=== PATIENT | female | born 1945 | race Caucasian/White ===

== ENCOUNTER → 2017-03-27 14:45 | Outpatient (CLI) | payer MEDICARE, OTHER, SELFPAY ==
--- NOTE | 2017-03-27 14:47 | CT_ITS ---
STUDY: CT CHEST WITH CONTRAST REASON FOR EXAM: Female, 71 years old. Follow-up lung nodule. RADIATION DOSAGE (If Supplied By Facility): CTDIvol = ( 14.44 ) mGy, DLP = ( 638.06 ) mGycm TECHNIQUE: Transaxial imaging was performed following intravenous administration of 100 ml of Isovue 300 contrast material. Multiplanar coronal and sagittal images were reformatted. Individualized dose optimization techniques were used for this CT. COMPARISON: CT of the chest, May 11, 2016. FINDINGS: There is a 3.5 x 3 x 6 cm irregular nodular density in the left lung apex best seen on image 11 of series 4. There is no other evidence of mass or nodule. There is no demonstrated pleural abnormality. Normal heart and pericardium. There are calcifications of the coronary arteries. Normal mediastinum. Normal hilar regions. Normal enhanced pulmonary arteries. There is atherosclerotic calcification of the aortic arch with tortuosity and elongation of the aortic arch and descending thoracic aorta. There are multi-level degenerative changes of the thoracic spine. There is no demonstrated abnormality of the visualized upper abdomen. CT/Chest WITH Contrast IMPRESSION: Stable nodular density in the left lung apex. A repeat examination one year is recommended to confirm stability. Electronically Signed: Trey Storm DO at 16:07 EST Tel [phone], Service support ,
== END ==
PROVIDERS: Family Provider Family Medicine Geriatric Medicine; PCP Family Medicine Geriatric Medicine; Visit Provider Family Medicine Geriatric Medicine
DX: R91.1 Solitary pulmonary nodule (principal)
CPT/HCPCS: 71260; Q9967

== ENCOUNTER → 2017-04-01 11:38 | Outpatient (CLI) | payer MEDICARE, OTHER, SELFPAY ==
[2017-04-01 14:13] LABS: Thyroid Stim Hormone (TSH) 0.95 uIU/mL (0.358-3.74)
== END ==
PROVIDERS: Family Provider Family Medicine Geriatric Medicine; PCP Family Medicine Geriatric Medicine; Visit Provider Family Medicine Geriatric Medicine
DX: E03.9 Hypothyroidism, unspecified (principal)
CPT/HCPCS: 36415; 84443

== ENCOUNTER → 2017-05-01 11:38 | Outpatient (CLI) | payer MEDICARE, OTHER, SELFPAY ==
[2017-05-01 13:03] LABS: Absolute Lymphocyte Count 2.44 X10^3/ul (0.83-4.51); Absolute Neutrophil Count 7.3 X10^3/uL (2.0-7.7); Basophil# 0.03 X10^3/uL; Basophil% 0.3 % (0-1); Eosinophil# 0.08 X10^3/uL; Eosinophils% 0.8 % (0-5); Hematocrit 39.5 % (37-47); Hemoglobin 12.8 g/dl (12.0-15.0); Lymphocyte # 2.44 X10^3/ul (4.0); Lymphocyte % 23.5 % (19-41); Mean Corp Hgb Conc 32.4 g/gl (32-36); Mean Corpuscular Hgb 29.1 pg (27.0-32.0); Mean Corpuscular Volume 89.8 fL (81-99); Mean Platelet Vol. 10.2 fl (6.2-12.0); Monocyte# 0.56 X10^3/uL; Monocyte% 5.4 % (0-10); Neutrophil # 7.27 X10^3/uL (2.7-7.7); Neutrophil % 69.9 % (47-70); Platelet Count 225 K/mm3 (150-450); RBC Distribution Width CV 14.7 % (11.6-14.6); RBC Distribution Width SD 47.4 fl (35.1-43.9); White Blood Count 10.4 K/mm3 (4.4-11.0)
[2017-05-01 13:12] LABS: POSITIVE COUNT NO; POSITIVE DIFFERENTIAL NO; POSITIVE MORPHOLOGY NO
[2017-05-01 13:36] LABS: AST(SGOT) 14 U/L (15-37); Alanine Aminotransfer ALT/SGPT 31 U/L (13-56); Albumin, Serum 3.3 g/dL (3.2-5.0); Alkaline Phosphatase 82 U/L (45-117); Anion Gap 6 (5-15); BUN 13 mg/dL (7-18); BUN/Creat Ratio 15.3 RATIO (10-20); Calcium,Total 8.3 mg/dL (8.5-10.1); Chloride 108 mmol/L (98-107); Creatinine, Serum 0.85 mg/dL (0.55-1.02); EST Glomerular Filtration Rate 71 mL/min (>60); Est Glom Filt Rate - Afr Amer 85 mL/min (>60); Globulin 3.4 g/dL (2.2-4.2); Glucose 142 mg/dL (74-106); Potassium 4.3 mmol/L (3.5-5.1); Protein, Total 6.7 g/dL (6.4-8.2); Sodium Level 140 mmol/L (136-145); T3 Uptake 36 % (30-39); Thyroid Stim Hormone (TSH) 0.77 uIU/mL (0.358-3.74)
[2017-05-02 09:45] LABS: Vitamin D,25 Hydroxy 18.4 ng/mL (29.95-100.01)
[2017-05-02 11:19] LABS: Hep C Antibodies <0.1 s/co ratio (0.0-0.9)
== END ==
PROVIDERS: Family Provider Family Medicine Geriatric Medicine; PCP Family Medicine Geriatric Medicine; Visit Provider Family Medicine Geriatric Medicine
DX: E55.9 Vitamin D deficiency, unspecified (principal); E78.4 Other hyperlipidemia; Z13.89 Encounter for screening for other disorder; E03.9 Hypothyroidism, unspecified
CPT/HCPCS: 36415; 80053; 82306; 84439; 84443; 84479; 85025; 86803

== ENCOUNTER → 2017-05-28 13:54 | Outpatient (CLI) | payer MEDICARE, OTHER, SELFPAY ==
--- NOTE | 2017-05-28 13:57 | BI_ITS ---
MAMMOGRAPHY - BILATERAL SCREENING REASON FOR EXAM: Female, 71 years old. Routine annual screening examination. PERTINENT HISTORY: Non-contributory. TECHNIQUE: Digital bilateral breast stewart (3D mammographic acquisition) in the CC and MLO projections. 2-D mediolateral oblique (MLO) and craniocaudad (CC) views of both breasts were obtained. CAD: Full Field Digital Mammography with Computer Added Detection was performed. COMPARISON: Comparison is made with prior study dated April 20, 2015 and April 01, 2013. FINDINGS: Breast Composition: The breasts are almost entirely fatty. There are no dominant masses or suspicious calcifications. No other significant abnormalities are identified. There has been no significant change since the prior study. BI/SCREENING MAMM (CAD), BILAT IMPRESSION: Stable bilateral screening mammogram. Yearly follow-up mammogram recommended. (A) ASSESSMENT CATEGORY: BIRADS Category 1: Negative. A letter regarding these results will be sent to the patient by the facility within 30 days. Approximately 10% of breast cancers are not detected by mammography. A normal mammogram should not delay biopsy of a clinically suspicious abnormality. [id number] Electronically Signed: Arthur Taveras MD at 9:12 EDT Tel [phone], Service support ,
[2017-05-28 18:12] LABS: Absolute Lymphocyte Count 2.18 X10^3/ul (0.83-4.51); Absolute Neutrophil Count 7.8 X10^3/uL (2.0-7.7); Basophil# 0.02 X10^3/uL; Basophil% 0.2 % (0-1); Eosinophil# 0.01 X10^3/uL; Eosinophils% 0.1 % (0-5); Hematocrit 43.4 % (37-47); Hemoglobin 13.9 g/dl (12.0-15.0); Lymphocyte # 2.18 X10^3/ul (4.0); Lymphocyte % 20.2 % (19-41); Mean Corpuscular Volume 90.4 fL (81-99); Mean Platelet Vol. 10.9 fl (6.2-12.0); Monocyte# 0.74 X10^3/uL; Monocyte% 6.9 % (0-10); Neutrophil # 7.79 X10^3/uL (2.7-7.7); Neutrophil % 72.2 % (47-70); POSITIVE COUNT NO; POSITIVE DIFFERENTIAL NO; POSITIVE MORPHOLOGY NO; Platelet Count 267 K/mm3 (150-450); RBC Distribution Width CV 14.8 % (11.6-14.6); RBC Distribution Width SD 48.7 fl (35.1-43.9); White Blood Count 10.8 K/mm3 (4.4-11.0)
[2017-05-28 18:20] LABS: ALB/GLOB Ratio 0.9 RATIO (0.9-2.4); AST(SGOT) 27 U/L (15-37); Alanine Aminotransfer ALT/SGPT 35 U/L (13-56); Albumin, Serum 3.6 g/dL (3.2-5.0); Alkaline Phosphatase 81 U/L (45-117); Anion Gap 10 (5-15); BUN 15 mg/dL (7-18); BUN/Creat Ratio 16.2 RATIO (10-20); Calcium,Total 8.8 mg/dL (8.5-10.1); Chloride 107 mmol/L (98-107); Creatinine, Serum 0.93 mg/dL (0.55-1.02); EST Glomerular Filtration Rate 64 mL/min (>60); Est Glom Filt Rate - Afr Amer 77 mL/min (>60); Globulin 3.8 g/dL (2.2-4.2); Glucose 91 mg/dL (74-106); Potassium 4.6 mmol/L (3.5-5.1); Protein, Total 7.4 g/dL (6.4-8.2); Sodium Level 140 mmol/L (136-145)
== END ==
PROVIDERS: Family Provider Family Medicine Geriatric Medicine; PCP Family Medicine Geriatric Medicine; Visit Provider Internal Medicine Rheumatology
DX: M06.4 Inflammatory polyarthropathy (principal); Z79.899 Other long term (current) drug therapy; M79.7 Fibromyalgia; M18.11 Unilateral primary osteoarthritis of first carpometacarpal joint, right hand; M15.9 Polyosteoarthritis, unspecified; M35.00 Sjogren syndrome, unspecified; M47.892 Other spondylosis, cervical region; E89.0 Postprocedural hypothyroidism; F32.89 Other specified depressive episodes; Z12.31 Encounter for screening mammogram for malignant neoplasm of breast
CPT/HCPCS: 36415; 77063; 77067; 80053; 85025

== ENCOUNTER → 2017-08-18 12:29 | Outpatient (CLI) | payer MEDICARE, OTHER, SELFPAY ==
[2017-08-18 14:54] LABS: Absolute Lymphocyte Count 3.01 X10^3/ul (0.83-4.51); Absolute Neutrophil Count 5.5 X10^3/uL (2.0-7.7); Basophil# 0.03 X10^3/uL; Basophil% 0.3 % (0-1); Eosinophil# 0.15 X10^3/uL; Eosinophils% 1.6 % (0-5); Hematocrit 41.8 % (37-47); Hemoglobin 13.5 g/dl (12.0-15.0); Lymphocyte # 3.01 X10^3/ul (4.0); Mean Corp Hgb Conc 32.3 g/gl (32-36); Mean Corpuscular Hgb 29.6 pg (27.0-32.0); Mean Corpuscular Volume 91.7 fL (81-99); Mean Platelet Vol. 9.9 fl (6.2-12.0); Monocyte# 0.73 X10^3/uL; Monocyte% 7.7 % (0-10); Neutrophil # 5.48 X10^3/uL (2.7-7.7); Neutrophil % 58.2 % (47-70); POSITIVE COUNT NO; POSITIVE DIFFERENTIAL NO; POSITIVE MORPHOLOGY NO; Platelet Count 274 K/mm3 (150-450); RBC Distribution Width CV 14.9 % (11.6-14.6); RBC Distribution Width SD 48.9 fl (35.1-43.9); Red Blood Count 4.56 M/mm3 (4.2-5.4); White Blood Count 9.4 K/mm3 (4.4-11.0)
[2017-08-18 15:04] LABS: ALB/GLOB Ratio 1.1 RATIO (0.9-2.4); AST(SGOT) 16 U/L (15-37); Alanine Aminotransfer ALT/SGPT 30 U/L (13-56); Albumin, Serum 3.5 g/dL (3.2-5.0); Alkaline Phosphatase 64 U/L (45-117); Anion Gap 6 (5-15); BUN 16 mg/dL (7-18); Calcium,Total 8.7 mg/dL (8.5-10.1); Chloride 109 mmol/L (98-107); Creatinine, Serum 0.84 mg/dL (0.55-1.02); EST Glomerular Filtration Rate 71 mL/min (>60); Est Glom Filt Rate - Afr Amer 86 mL/min (>60); Globulin 3.3 g/dL (2.2-4.2); Glucose 83 mg/dL (74-106); Potassium 4.2 mmol/L (3.5-5.1); Protein, Total 6.8 g/dL (6.4-8.2); Sodium Level 142 mmol/L (136-145)
== END ==
PROVIDERS: Family Provider Family Medicine Geriatric Medicine; PCP Family Medicine Geriatric Medicine; Visit Provider Internal Medicine Rheumatology
DX: M06.4 Inflammatory polyarthropathy (principal); Z79.899 Other long term (current) drug therapy; M79.7 Fibromyalgia; M18.11 Unilateral primary osteoarthritis of first carpometacarpal joint, right hand; M15.9 Polyosteoarthritis, unspecified; M35.00 Sjogren syndrome, unspecified; M47.892 Other spondylosis, cervical region; E89.0 Postprocedural hypothyroidism; F32.89 Other specified depressive episodes
CPT/HCPCS: 36415; 80053; 85025

== ENCOUNTER → 2017-10-30 14:45 | Outpatient (CLI) | payer MEDICARE, OTHER, SELFPAY ==
[2017-10-30 17:20] LABS: Absolute Lymphocyte Count 1.13 X10^3/ul (0.83-4.51); Absolute Neutrophil Count 7.6 X10^3/uL (2.0-7.7); Basophil# 0.02 X10^3/uL; Basophil% 0.2 % (0-1); Eosinophil# 0.01 X10^3/uL; Eosinophils% 0.1 % (0-5); Hematocrit 39.6 % (37-47); Hemoglobin 13.1 g/dl (12.0-15.0); Lymphocyte # 1.13 X10^3/ul (4.0); Lymphocyte % 12.6 % (19-41); Mean Corp Hgb Conc 33.1 g/gl (32-36); Mean Corpuscular Hgb 30.8 pg (27.0-32.0); Mean Platelet Vol. 10.7 fl (6.2-12.0); Monocyte# 0.24 X10^3/uL; Monocyte% 2.7 % (0-10); Neutrophil # 7.55 X10^3/uL (2.7-7.7); Neutrophil % 84.3 % (47-70); Platelet Count 242 K/mm3 (150-450); RBC Distribution Width CV 14.8 % (11.6-14.6); Red Blood Count 4.26 M/mm3 (4.2-5.4)
[2017-10-30 17:29] LABS: POSITIVE COUNT NO; POSITIVE DIFFERENTIAL NO; POSITIVE MORPHOLOGY NO
[2017-10-30 17:38] LABS: ALB/GLOB Ratio 0.9 RATIO (0.9-2.4); AST(SGOT) 26 U/L (15-37); Alanine Aminotransfer ALT/SGPT 37 U/L (13-56); Albumin, Serum 3.3 g/dL (3.2-5.0); Alkaline Phosphatase 66 U/L (45-117); Anion Gap 12 (5-15); BUN 15 mg/dL (7-18); BUN/Creat Ratio 13.8 RATIO (10-20); Calcium,Total 8.4 mg/dL (8.5-10.1); Chloride 108 mmol/L (98-107); Creatinine, Serum 1.09 mg/dL (0.55-1.02); EST Glomerular Filtration Rate 53 mL/min (>60); Est Glom Filt Rate - Afr Amer 64 mL/min (>60); Globulin 3.5 g/dL (2.2-4.2); Glucose 175 mg/dL (74-106); Potassium 4.4 mmol/L (3.5-5.1); Protein, Total 6.8 g/dL (6.4-8.2); Sodium Level 140 mmol/L (136-145); Thyroid Stim Hormone (TSH) 0.22 uIU/mL (0.358-3.74)
[2017-10-31 11:55] LABS: Vitamin D,25 Hydroxy 25.9 ng/mL (29.95-100.01)
== END ==
PROVIDERS: Family Provider Family Medicine Geriatric Medicine; PCP Family Medicine Geriatric Medicine; Visit Provider Family Medicine Geriatric Medicine
DX: E55.9 Vitamin D deficiency, unspecified (principal); R53.83 Other fatigue
CPT/HCPCS: 36415; 80053; 82306; 84443; 85025

== ENCOUNTER → 2017-11-11 14:58 | Outpatient (CLI) | payer MEDICARE, OTHER, SELFPAY ==
[2017-11-11 18:53] LABS: Absolute Lymphocyte Count 2.73 X10^3/ul (0.83-4.51); Absolute Neutrophil Count 5.2 X10^3/uL (2.0-7.7); Basophil# 0.04 X10^3/uL; Basophil% 0.4 % (0-1); Eosinophil# 0.13 X10^3/uL; Eosinophils% 1.5 % (0-5); Hematocrit 39.2 % (37-47); Hemoglobin 13.1 g/dl (12.0-15.0); Lymphocyte # 2.73 X10^3/ul (4.0); Lymphocyte % 30.5 % (19-41); Mean Corp Hgb Conc 33.4 g/gl (32-36); Mean Corpuscular Hgb 30.9 pg (27.0-32.0); Mean Corpuscular Volume 92.5 fL (81-99); Monocyte# 0.86 X10^3/uL; Monocyte% 9.6 % (0-10); Neutrophil # 5.16 X10^3/uL (2.7-7.7); Neutrophil % 57.7 % (47-70); Platelet Count 244 K/mm3 (150-450); RBC Distribution Width CV 14.6 % (11.6-14.6); RBC Distribution Width SD 47.8 fl (35.1-43.9); Red Blood Count 4.24 M/mm3 (4.2-5.4)
[2017-11-11 18:54] LABS: POSITIVE COUNT NO; POSITIVE DIFFERENTIAL NO; POSITIVE MORPHOLOGY NO
[2017-11-11 19:02] LABS: ALB/GLOB Ratio 1.1 RATIO (0.9-2.4); AST(SGOT) 21 U/L (15-37); Alanine Aminotransfer ALT/SGPT 32 U/L (13-56); Albumin, Serum 3.3 g/dL (3.2-5.0); Alkaline Phosphatase 66 U/L (45-117); Anion Gap 7 (5-15); BUN 13 mg/dL (7-18); BUN/Creat Ratio 13.1 RATIO (10-20); Calcium,Total 8.5 mg/dL (8.5-10.1); Chloride 106 mmol/L (98-107); EST Glomerular Filtration Rate 59 mL/min (>60); Est Glom Filt Rate - Afr Amer 71 mL/min (>60); Globulin 3.1 g/dL (2.2-4.2); Glucose 124 mg/dL (74-106); Potassium 3.8 mmol/L (3.5-5.1); Protein, Total 6.4 g/dL (6.4-8.2); Sodium Level 139 mmol/L (136-145)
== END ==
PROVIDERS: Family Provider Family Medicine Geriatric Medicine; PCP Family Medicine Geriatric Medicine; Visit Provider Internal Medicine Rheumatology
DX: M06.4 Inflammatory polyarthropathy (principal); Z79.899 Other long term (current) drug therapy; M79.7 Fibromyalgia; M18.11 Unilateral primary osteoarthritis of first carpometacarpal joint, right hand; M15.9 Polyosteoarthritis, unspecified; M35.00 Sjogren syndrome, unspecified; M47.892 Other spondylosis, cervical region; E89.0 Postprocedural hypothyroidism; F32.89 Other specified depressive episodes
CPT/HCPCS: 36415; 80053; 85025

== ENCOUNTER → 2018-01-27 10:22 | Outpatient (CLI) | payer MEDICARE, OTHER, SELFPAY ==
[2018-01-27 12:15] LABS: Absolute Lymphocyte Count 2.79 X10^3/ul (0.83-4.51); Basophil# 0.04 X10^3/uL; Basophil% 0.3 % (0-1); Eosinophil# 0.07 X10^3/uL; Eosinophils% 0.6 % (0-5); Hematocrit 45.5 % (37-47); Hemoglobin 14.7 g/dl (12.0-15.0); Lymphocyte # 2.79 X10^3/ul (4.0); Lymphocyte % 22.3 % (19-41); Mean Corp Hgb Conc 32.3 g/gl (32-36); Mean Corpuscular Hgb 30.2 pg (27.0-32.0); Mean Corpuscular Volume 93.4 fL (81-99); Mean Platelet Vol. 10.4 fl (6.2-12.0); Monocyte# 0.59 X10^3/uL; Monocyte% 4.7 % (0-10); Neutrophil # 8.97 X10^3/uL (2.7-7.7); Neutrophil % 71.9 % (47-70); Platelet Count 309 K/mm3 (150-450); RBC Distribution Width CV 14.3 % (11.6-14.6); RBC Distribution Width SD 48.1 fl (35.1-43.9); Red Blood Count 4.87 M/mm3 (4.2-5.4); White Blood Count 12.5 K/mm3 (4.4-11.0)
[2018-01-27 12:23] LABS: POSITIVE COUNT NO; POSITIVE DIFFERENTIAL NO; POSITIVE MORPHOLOGY NO
[2018-01-27 12:58] LABS: AST(SGOT) 22 U/L (15-37); Alanine Aminotransfer ALT/SGPT 27 U/L (13-56); Albumin, Serum 3.7 g/dL (3.2-5.0); Alkaline Phosphatase 67 U/L (45-117); Anion Gap 10 (5-15); BUN 15 mg/dL (7-18); Calcium,Total 9.1 mg/dL (8.5-10.1); Chloride 108 mmol/L (98-107); Creatinine, Serum 0.94 mg/dL (0.55-1.02); EST Glomerular Filtration Rate 63 mL/min (>60); Est Glom Filt Rate - Afr Amer 76 mL/min (>60); Globulin 3.6 g/dL (2.2-4.2); Glucose 95 mg/dL (74-106); Potassium 4.2 mmol/L (3.5-5.1); Protein, Total 7.3 g/dL (6.4-8.2); Sodium Level 140 mmol/L (136-145)
== END ==
PROVIDERS: Family Provider Family Medicine Geriatric Medicine; PCP Family Medicine Geriatric Medicine; Referring Provider Internal Medicine Rheumatology; Visit Provider Internal Medicine Rheumatology
DX: M06.4 Inflammatory polyarthropathy (principal); Z79.899 Other long term (current) drug therapy; M79.7 Fibromyalgia; M18.11 Unilateral primary osteoarthritis of first carpometacarpal joint, right hand; M15.9 Polyosteoarthritis, unspecified; M35.00 Sjogren syndrome, unspecified; M47.892 Other spondylosis, cervical region; E89.0 Postprocedural hypothyroidism; F32.89 Other specified depressive episodes
CPT/HCPCS: 36415; 80053; 85025

== ENCOUNTER → 2018-02-25 17:33 | Outpatient (CLI) | payer MEDICARE, OTHER, SELFPAY | PROVIDERS: Family Provider Family Medicine Geriatric Medicine; PCP Family Medicine Geriatric Medicine; Referring Provider Family Medicine Geriatric Medicine; Visit Provider Family Medicine Geriatric Medicine | DX: R50.9 Fever, unspecified (principal) | CPT/HCPCS: 87633 ==

== ENCOUNTER → 2018-03-16 10:39 | Outpatient (CLI) | payer MEDICARE, OTHER, SELFPAY ==
[2018-03-16 11:38] LABS: Absolute Lymphocyte Count 2.64 X10^3/ul (0.83-4.51); Basophil# 0.04 X10^3/uL; Basophil% 0.5 % (0-1); Eosinophils% 1.2 % (0-5); Hematocrit 41.7 % (37-47); Hemoglobin 13.3 g/dl (12.0-15.0); Lymphocyte # 2.64 X10^3/ul (4.0); Lymphocyte % 31.5 % (19-41); Mean Corp Hgb Conc 31.9 g/gl (32-36); Mean Corpuscular Hgb 29.8 pg (27.0-32.0); Mean Corpuscular Volume 93.5 fL (81-99); Mean Platelet Vol. 10.5 fl (6.2-12.0); Monocyte# 0.59 X10^3/uL; Neutrophil # 4.99 X10^3/uL (2.7-7.7); Neutrophil % 59.7 % (47-70); Platelet Count 267 K/mm3 (150-450); RBC Distribution Width CV 14.9 % (11.6-14.6); RBC Distribution Width SD 49.9 fl (35.1-43.9); Red Blood Count 4.46 M/mm3 (4.2-5.4); White Blood Count 8.4 K/mm3 (4.4-11.0)
[2018-03-16 11:40] LABS: POSITIVE COUNT NO; POSITIVE DIFFERENTIAL NO; POSITIVE MORPHOLOGY NO
[2018-03-16 12:06] LABS: AST(SGOT) 16 U/L (15-37); Alanine Aminotransfer ALT/SGPT 27 U/L (13-56); Albumin, Serum 3.4 g/dL (3.2-5.0); Alkaline Phosphatase 70 U/L (45-117); Anion Gap 6 (5-15); BUN 12 mg/dL (7-18); BUN/Creat Ratio 15.1 RATIO (10-20); Calcium,Total 9.1 mg/dL (8.5-10.1); Chloride 109 mmol/L (98-107); EST Glomerular Filtration Rate 76 mL/min (>60); Est Glom Filt Rate - Afr Amer 92 mL/min (>60); Globulin 3.5 g/dL (2.2-4.2); Glucose 112 mg/dL (74-106); Potassium 3.9 mmol/L (3.5-5.1); Protein, Total 6.9 g/dL (6.4-8.2); Sodium Level 142 mmol/L (136-145)
--- OUTSIDE RECORDS SUMMARY | 2018-05-18 20:56 | XMS RPT_ITS ---
:1945 Author Organization OHIP Support Name Relationship Address Phone TALISHA HOOKS Unavailable [address] + [place] [address] R Unavailable Unavailable Unavailable NEVA, TALISHA Unavailable [address] + [place] [address] R Unavailable Unavailable Unavailable NEVA, TALISHA Unavailable [address] + [place] [address] R Unavailable Unavailable Unavailable NEVA, TALISHA Unavailable [address] + [place] [address] R Unavailable Unavailable Unavailable NEVA, TALISHA Unavailable [address] + [place] [address] R Unavailable Unavailable Unavailable NEVA, CHOCO Unavailable Unavailable + NEVA, CHOCO Unavailable Unavailable + NEVA TALISHA Unavailable [address] + [place] [address] R Unavailable Unavailable Unavailable NEVA, TALISHA Unavailable [address] + [place] [address] R Unavailable Unavailable Unavailable NEVA, TALISHA Unavailable [address] + [place] [address] R Unavailable Unavailable Unavailable NEVA, TALISHA Unavailable [address] + [place] [address] R Unavailable Unavailable Unavailable NEVA, TALISHA Unavailable [address] + [place] [address] R Unavailable Unavailable Unavailable Care Team Providers Name Role Phone Dustin, Justo Chi Attending Unavailable Dustin, Justo Chi Primary Care Unavailable Dustin, Justo Chi Referring Unavailable Dustin, Justo Chi Attending Unavailable Dustin, Justo Chi Referring Unavailable Dustin, Justo Chi Primary Care Unavailable Bettye Dumont Attending Unavailable Bettye Dumont Referring Unavailable Dustin, Justo Chi Primary Care Unavailable Dustin, Justo Chi Attending Unavailable Dustin, Justo Chi Referring Unavailable Dustin, Justo Chi Primary Care Unavailable Dustin, Justo Chi Attending Unavailable Dustin, Justo Chi Primary Care Unavailable Dustin, Justo Chi Referring Unavailable Dustin, Justo Chi Primary Care Unavailable Vellanki, Bettye Attending Unavailable Dustin, Justo Chi Consulting Unavailable Vellanki, Bettye Attending Unavailable Vellanki, Bettye Referring Unavailable Dustin, Justo Chi Primary Care Unavailable Dustin, Justo Chi Attending Unavailable Dustin, Justo Chi Primary Care Unavailable Vellanki, Bettye Attending Unavailable Vellanki, Bettye Referring Unavailable Dustin, Justo Chi Primary Care Unavailable Vellanki, Bettye Attending Unavailable Vellanki, Bettye Referring Unavailable Dustin, Justo Chi Primary Care Unavailable BRENT CLEMENTE Referring Unavailable Brandon Meza Admitting Unavailable Brandon Meza Attending Unavailable Dustin, Justo Chi Primary Care Unavailable BRENT CLEMENTE Referring Unavailable DUSTIN, JUSTO-CHI Primary Care Unavailable PROBLEMS PROBLEMS DATE TYPE CONDITION / CODE ATTENDING STATUS SOURCE 03/16/2018 Unknown 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, 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 / [facility] M06.4(ICD-10) Hospital Repository 03/16/2018 Unknown Z79.899 - Other long Vellanki, Active [place] term (current) drug [facility] therapy / Hospital Z79.899(ICD-10) Repository 03/16/2018 Unknown M79.7 - Fibromyalgia Vellanki, Active [place] / M79.7(ICD-10) [facility] Hospital Repository 03/16/2018 Unknown M35.00 - Sicca Vellanki, Active [facility] syndrome, [facility] unspecified / Hospital M35.00(ICD-10) Repository 03/16/2018 Unknown E89.0 - Vellanki, Active [place] Postprocedural [facility] hypothyroidism / Hospital E89.0(ICD-10) Repository 02/25/2018 Unknown R50.9 - Fever, Dustin, Justo Chi Active [facility] unspecified / Community R50.9(ICD-10) Hospital Repository 01/27/2018 Unknown M18.11 - Unilateral Vellanki, Active [facility] primary [facility] osteoarthritis of Hospital first Repository carpometacarpal joint, right hand / M18.11(ICD-10) 01/27/2018 Unknown M15.9 - Vellanki, Active [place] Polyosteoarthritis, [facility] unspecified / Hospital M15.9(ICD-10) Repository 01/27/2018 Unknown M47.892 - Other Vellanki, Active [facility] spondylosis, [facility] cervical region / Hospital M47.892(ICD-10) Repository 01/27/2018 Unknown F32.89 - Other Vellanki, Active [facility] specified depressive [facility] episodes / Hospital F32.89(ICD-10) Repository 05/28/2017 Unknown Z12.31 - Encounter Vellanjason, Active [place] for screening [facility] mammogram for Hospital malignant neoplasm Repository of breast / Z12.31(ICD-10) 05/21/2017 Active Radiculopathy, NA Active [place] cervical region / Clinic Other M54.12(ICD-10) [place] Repository 05/21/2017 Admitting Unknown / NA Active [facility] diagnosis [facility] Repository 05/01/2017 Unknown E55.9 - Vitamin D Dustin, Justo Chi Active [place] deficiency, Community unspecified / Hospital E55.9(ICD-10) Repository 05/01/2017 Unknown E78.4 - Other Dustin, Justo Chi Active [facility] hyperlipidemia / [facility] E78.4(ICD-10) Hospital Repository 05/01/2017 Unknown Z13.89 - Encounter Dustin, Justo Chi Active [facility] for screening for Community other disorder / Hospital Z13.89(ICD-10) Repository 04/01/2017 Unknown E03.9 - Dustin, Justo Chi Active [place] Hypothyroidism, Community unspecified / Hospital E03.9(ICD-10) Repository 03/27/2017 Unknown R91.1 - Solitary Dustin, Justo Chi Active [place] pulmonary nodule / Community R91.1(ICD-10) Hospital Repository PROCEDURES PROCEDURES No Procedure Records FoundRESULTS RESULTS CBC W/DIFF, AUTOMATED Collected: 03/16/2018 Status: F Source: [facility] 10:45 AM [facility] REPOSITORY TYPE CODE TESTS RESULT OUT OF RANGE REFERENCE UNITS LAB L100.1000 4.4-11.0 K/mm3 Normal WBC 8.4 LAB L100.1200 4.2-5.4 M/mm3 Normal RBC 4.46 LAB L100.1300 12.0-15.0 g/dl Normal HGB 13.3 LAB L100.1400 37-47 % Normal HCT 41.7 LAB L100.1500 81-99 fL Normal MCV 93.5 LAB L100.1600 27.0-32.0 pg Normal MCH 29.8 LAB L100.1700 32-36 g/gl Low MCHC 31.9 LAB L100.1810 11.6-14.6 % High RDW CV 14.9 LAB L100.1820 35.1-43.9 fl High RDW SD 49.9 LAB L100.1900 150-450 K/mm3 Normal PLT 267 LAB L100.2000 6.2-12.0 fl Normal MPV 10.5 LAB L100.2100 47-70 % Normal NEUT% 59.7 LAB L100.2200 19-41 % Normal LY% 31.5 LAB L100.2300 0-10 % Normal MONO% 7.0 LAB L100.2400 0-5 % Normal EO% 1.2 LAB L100.2500 0-1 % Normal BASO% 0.5 LAB L100.2550 0.0-0.9 % Normal IM GRAN % 0.100 Result Comment: IG% - Immature Granulocytes (promyelocytes, myelocytes and metamyelocytes) > 1% indicates that a LEFT SHIFT is Present. LAB L100.2620 2.0-7.7 X10 3/uL Normal Absolute Neut 5.0 LAB L100.2720 0.83-4.51 X10 3/ul Normal Absolute Lymph 2.64 Performed By: #### L100.0100 #### [facility] [address] [place], [place], [address] COMPREHENSIVE METABOLIC Collected: 03/16/2018 Status: F Source: [facility] 10:45 AM [facility] REPOSITORY TYPE CODE TESTS RESULT OUT OF RANGE REFERENCE UNITS LAB L501.0100 74-106 mg/dL High GLU 112 Result Comment: Fasting Glucose result from 100 to 125 mg/dL suggests IMPAIRED HOMEOSTASIS per A.D.A. criteria. Please note revised GLUCOSE reference range effective 2017. LAB L501.1000 7-18 mg/dL Normal BUN 12 LAB L501.1100 0.55-1.02 mg/dL Normal CREAT,SERUM 0.80 Result Comment: The validity of the calculated GFR AND GFRAA in patients over 70 years has not been determined. Clinical correlation is essential. LAB L501.1110 >60 mL/min Normal EST GFR 76 Result Comment: Non- GFR Calc LAB L501.1115 >60 mL/min Normal EST GFR - AA 92 Result Comment: GFR Calc LAB L501.1300 10-20 RATIO Normal BUN/CRE 15.1 LAB L501.1500 6.4-8.2 g/dL T Normal PROT 6.9 LAB L501.1800 3.2-5.0 g/dL Normal ALB 3.4 LAB L501.1950 2.2-4.2 g/dL Normal GLOB 3.5 LAB L501.2000 0.9-2.4 RATIO Normal A/G 1.0 LAB L501.2200 8.5-10.1 mg/dL CA Normal 9.1 LAB L501.4100 15-37 U/L Normal AST 16 LAB L501.4305 45-117 U/L Normal ALK P 70 LAB L501.4405 13-56 U/L Normal ALT 27 LAB L501.4600 0.20-1.00 mg/dL T Normal BILI 0.30 LAB L501.5300 136-145 mmol/L NA Normal 142 LAB L501.5600 3.5-5.1 mmol/L K Normal 3.9 LAB L501.5900 98-107 mmol/L High CL 109 LAB L501.6100 21.0-32.0 mmol/L Normal CO2 27.0 LAB L501.6200 5-15 Normal GAP 6 Performed By: #### L500.4050 #### [facility] [address] [facility] [place], [address] Observed: 02/25/2018 Status: F Source: [place] RESPIRATORY PANEL 5:44 PM [facility] MOLECULAR REPOSITORY RP PANEL ADENOVIRUS Not Detected HUMAN METAPHNEUMO Not Detected INFLUENZA A Not Detected INFLUENZA A (SUBTYPE H1) Not Detected INFLUENZA A (SUBTYPE H3) Not Detected INFLUENZA B Not Detected PARAINFLUENZA 1 Not Detected PARAINFLUENZA 2 Not Detected PARAINFLUENZA 3 Not Detected PARAINFLUENZA 4 Not Detected RHINOVIRUS Not Detected RSV A Not Detected RSV B Not Detected NAAT METHOD Testing was performed using nucleic acid amplification Performed By: #### M100.638 #### [facility] [address] [place], [place], [address] CBC W/DIFF, AUTOMATED Collected: 01/27/2018 Status: F Source: [place] 10:30 AM [facility] REPOSITORY TYPE CODE TESTS RESULT OUT OF RANGE REFERENCE UNITS LAB L100.1000 4.4-11.0 K/mm3 High WBC 12.5 LAB L100.1200 4.2-5.4 M/mm3 Normal RBC 4.87 LAB L100.1300 12.0-15.0 g/dl Normal HGB 14.7 LAB L100.1400 37-47 % Normal HCT 45.5 LAB L100.1500 81-99 fL Normal MCV 93.4 LAB L100.1600 27.0-32.0 pg Normal MCH 30.2 LAB L100.1700 32-36 g/gl Normal MCHC 32.3 LAB L100.1810 11.6-14.6 % Normal RDW CV 14.3 LAB L100.1820 35.1-43.9 fl High RDW SD 48.1 LAB L100.1900 150-450 K/mm3 Normal PLT 309 LAB L100.2000 6.2-12.0 fl Normal MPV 10.4 LAB L100.2100 47-70 % High NEUT% 71.9 LAB L100.2200 19-41 % Normal LY% 22.3 LAB L100.2300 0-10 % Normal MONO% 4.7 LAB L100.2400 0-5 % Normal EO% 0.6 LAB L100.2500 0-1 % Normal BASO% 0.3 LAB L100.2550 0.0-0.9 % Normal IM GRAN % 0.200 Result Comment: IG% - Immature Granulocytes (promyelocytes, myelocytes and metamyelocytes) > 1% indicates that a LEFT SHIFT is Present. LAB L100.2620 2.0-7.7 X10 3/uL High Absolute Neut 9.0 LAB L100.2720 0.83-4.51 X10 3/ul Normal Absolute Lymph 2.79 Performed By: #### L100.0100 #### [facility] [address] [place], [address] COMPREHENSIVE METABOLIC Collected: 01/27/2018 Status: F [facility] AM [facility] REPOSITORY TYPE CODE TESTS RESULT OUT OF RANGE REFERENCE UNITS LAB L501.0100 74-106 mg/dL Normal GLU 95 Result Comment: Please note revised GLUCOSE reference range effective 2017. LAB L501.1000 7-18 mg/dL Normal BUN 15 LAB L501.1100 0.55-1.02 mg/dL Normal CREAT,SERUM 0.94 Result Comment: The validity of the calculated GFR AND GFRAA in patients over 70 years has not been determined. Clinical correlation is essential. LAB L501.1110 >60 mL/min Normal EST GFR 63 Result Comment: Non- GFR Calc LAB L501.1115 >60 mL/min Normal EST GFR - AA 76 Result Comment: GFR Calc LAB L501.1300 10-20 RATIO Normal BUN/CRE 16.0 LAB L501.1500 6.4-8.2 g/dL T Normal PROT 7.3 LAB L501.1800 3.2-5.0 g/dL Normal ALB 3.7 LAB L501.1950 2.2-4.2 g/dL Normal GLOB 3.6 LAB L501.2000 0.9-2.4 RATIO Normal A/G 1.0 LAB L501.2200 8.5-10.1 mg/dL CA Normal 9.1 LAB L501.4100 15-37 U/L Normal AST 22 LAB L501.4305 45-117 U/L Normal ALK P 67 LAB L501.4405 13-56 U/L Normal ALT 27 LAB L501.4600 0.20-1.00 mg/dL T Normal BILI 0.50 LAB L501.5300 136-145 mmol/L NA Normal 140 LAB L501.5600 3.5-5.1 mmol/L K Normal 4.2 LAB L501.5900 98-107 mmol/L High CL 108 LAB L501.6100 21.0-32.0 mmol/L Normal CO2 22.0 LAB L501.6200 5-15 Normal GAP 10 Performed By: #### L500.4050 #### [facility] [address] [place], [address] CBC W/DIFF, AUTOMATED Collected: 11/11/2017 Status: F Source: [facility] 3:04 PM [facility] REPOSITORY TYPE CODE TESTS RESULT OUT OF RANGE REFERENCE UNITS LAB L100.1000 4.4-11.0 K/mm3 Normal WBC 9.0 LAB L100.1200 4.2-5.4 M/mm3 Normal RBC 4.24 LAB L100.1300 12.0-15.0 g/dl Normal HGB 13.1 LAB L100.1400 37-47 % Normal HCT 39.2 LAB L100.1500 81-99 fL Normal MCV 92.5 LAB L100.1600 27.0-32.0 pg Normal MCH 30.9 LAB L100.1700 32-36 g/gl Normal MCHC 33.4 LAB L100.1810 11.6-14.6 % Normal RDW CV 14.6 LAB L100.1820 35.1-43.9 fl High RDW SD 47.8 LAB L100.1900 150-450 K/mm3 Normal PLT 244 LAB L100.2000 6.2-12.0 fl Normal MPV 11.0 LAB L100.2100 47-70 % Normal NEUT% 57.7 LAB L100.2200 19-41 % Normal LY% 30.5 LAB L100.2300 0-10 % Normal MONO% 9.6 LAB L100.2400 0-5 % Normal EO% 1.5 LAB L100.2500 0-1 % Normal BASO% 0.4 LAB L100.2550 0.0-0.9 % Normal IM GRAN % 0.300 Result Comment: IG% - Immature Granulocytes (promyelocytes, myelocytes and metamyelocytes) > 1% indicates that a LEFT SHIFT is Present. LAB L100.2620 2.0-7.7 X10 3/uL Normal Absolute Neut 5.2 LAB L100.2720 0.83-4.51 X10 3/ul Normal Absolute Lymph 2.73 Performed By: #### L100.0100 #### [facility] [address] [place], [place], [id number] COMPREHENSIVE METABOLIC Collected: 11/11/2017 Status: F Source: [facility] 3:04 PM [facility] REPOSITORY TYPE CODE TESTS RESULT OUT OF RANGE REFERENCE UNITS LAB L501.0100 74-106 mg/dL High GLU 124 Result Comment: Fasting Glucose result from 100 to 125 mg/dL suggests IMPAIRED HOMEOSTASIS per A.D.A. criteria. Please note revised GLUCOSE reference range effective 2017. LAB L501.1000 7-18 mg/dL Normal BUN 13 LAB L501.1100 0.55-1.02 mg/dL Normal CREAT,SERUM 1.00 Result Comment: The validity of the calculated GFR AND GFRAA in patients over 70 years has not been determined. Clinical correlation is essential. LAB L501.1110 >60 mL/min Low EST GFR 59 Result Comment: Non- GFR Calc LAB L501.1115 >60 mL/min Normal EST GFR - AA 71 Result Comment: GFR Calc LAB L501.1300 10-20 RATIO Normal BUN/CRE 13.1 LAB L501.1500 6.4-8.2 g/dL T Normal PROT 6.4 LAB L501.1800 3.2-5.0 g/dL Normal ALB 3.3 LAB L501.1950 2.2-4.2 g/dL Normal GLOB 3.1 LAB L501.2000 0.9-2.4 RATIO Normal A/G 1.1 LAB L501.2200 8.5-10.1 mg/dL CA Normal 8.5 LAB L501.4100 15-37 U/L Normal AST 21 LAB L501.4305 45-117 U/L Normal ALK P 66 LAB L501.4405 13-56 U/L Normal ALT 32 LAB L501.4600 0.20-1.00 mg/dL T Normal BILI 0.30 LAB L501.5300 136-145 mmol/L NA Normal 139 LAB L501.5600 3.5-5.1 mmol/L K Normal 3.8 LAB L501.5900 98-107 mmol/L CL Normal 106 LAB L501.6100 21.0-32.0 mmol/L Normal CO2 26.0 LAB L501.6200 5-15 Normal GAP 7 Performed By: #### L500.4050 #### [facility] [place], [place], [id number] CBC W/DIFF, AUTOMATED Collected: 10/30/2017 Status: F Source: [facility] 2:49 PM [facility] REPOSITORY TYPE CODE TESTS RESULT OUT OF RANGE REFERENCE UNITS LAB L100.1000 4.4-11.0 K/mm3 Normal WBC 9.0 LAB L100.1200 4.2-5.4 M/mm3 Normal RBC 4.26 LAB L100.1300 12.0-15.0 g/dl Normal HGB 13.1 LAB L100.1400 37-47 % Normal HCT 39.6 LAB L100.1500 81-99 fL Normal MCV 93.0 LAB L100.1600 27.0-32.0 pg Normal MCH 30.8 LAB L100.1700 32-36 g/gl Normal MCHC 33.1 LAB L100.1810 11.6-14.6 % High RDW CV 14.8 LAB L100.1820 35.1-43.9 fl High RDW SD 48.0 LAB L100.1900 150-450 K/mm3 Normal PLT 242 LAB L100.2000 6.2-12.0 fl Normal MPV 10.7 LAB L100.2100 47-70 % High NEUT% 84.3 LAB L100.2200 19-41 % Low LY% 12.6 LAB L100.2300 0-10 % Normal MONO% 2.7 LAB L100.2400 0-5 % Normal EO% 0.1 LAB L100.2500 0-1 % Normal BASO% 0.2 LAB L100.2550 0.0-0.9 % Normal IM GRAN % 0.100 Result Comment: IG% - Immature Granulocytes (promyelocytes, myelocytes and metamyelocytes) > 1% indicates that a LEFT SHIFT is Present. LAB L100.2620 2.0-7.7 X10 3/uL Normal Absolute Neut 7.6 LAB L100.2720 0.83-4.51 X10 3/ul Normal Absolute Lymph 1.13 Performed By: #### L100.0100 #### [facility] [address] [place], [place], [address] COMPREHENSIVE METABOLIC Collected: 10/30/2017 Status: F Source: [facility] 2:49 PM [facility] REPOSITORY TYPE CODE TESTS RESULT OUT OF RANGE REFERENCE UNITS LAB L501.0100 74-106 mg/dL High GLU 175 Result Comment: Fasting Glucose result greater than or equal to 126 mg/dL suggests DIABETES MELLITUS per A.D.A. criteria. Please note revised GLUCOSE reference range effective 2017. LAB L501.1000 7-18 mg/dL Normal BUN 15 LAB L501.1100 0.55-1.02 mg/dL High CREAT,SERUM 1.09 Result Comment: The validity of the calculated GFR AND GFRAA in patients over 70 years has not been determined. Clinical correlation is essential. LAB L501.1110 >60 mL/min Low EST GFR 53 Result Comment: Non- GFR Calc LAB L501.1115 >60 mL/min Normal EST GFR - AA 64 Result Comment: GFR Calc LAB L501.1300 10-20 RATIO Normal BUN/CRE 13.8 LAB L501.1500 6.4-8.2 g/dL T Normal PROT 6.8 LAB L501.1800 3.2-5.0 g/dL Normal ALB 3.3 LAB L501.1950 2.2-4.2 g/dL Normal GLOB 3.5 LAB L501.2000 0.9-2.4 RATIO Normal A/G 0.9 LAB L501.2200 8.5-10.1 mg/dL Low CA 8.4 LAB L501.4100 15-37 U/L Normal AST 26 LAB L501.4305 45-117 U/L Normal ALK P 66 LAB L501.4405 13-56 U/L Normal ALT 37 LAB L501.4600 0.20-1.00 mg/dL T Normal BILI 0.30 LAB L501.5300 136-145 mmol/L NA Normal 140 LAB L501.5600 3.5-5.1 mmol/L K Normal 4.4 LAB L501.5900 98-107 mmol/L High CL 108 LAB L501.6100 21.0-32.0 mmol/L Low CO2 20.0 LAB L501.6200 5-15 Normal GAP 12 Performed By: #### L500.4050, L501.9520 #### [facility] [address] [facility] [place], [address] THYROID STIM HORMONE Collected: 10/30/2017 Status: F Source: [facility] ([facility]) 2:49 PM [facility] REPOSITORY TYPE CODE TESTS RESULT OUT OF RANGE REFERENCE UNITS LAB L501.9520 0.358-3.74 uIU/mL Low TSH 0.22 Performed By: #### L500.4050, L501.9520 #### [facility] [address] [place], [address] VITAMIN D,25 HYDROXY Collected: 10/30/2017 Status: F Source: [facility] 2:49 PM [facility] REPOSITORY TYPE CODE TESTS RESULT OUT OF REFERENCE UNITS RANGE LAB L506.1000 29.95-100.01 ng/mL Low Vitamin D 25.9 25-OH Result Comment: Vitamin D 25(OH) Status Range Deficiency <20 ng/mL (50nmol/L) Insuffciency 20 - 30 ng/mL (50 - 75 nmol/L) Sufficiency 30 - 100 ng/mL (75 - 250 nmol/L) Toxicity >100 ng/mL (>250 nmol/L) Performed By: #### L506.1000 #### [facility] [place], [address] XR SPINE LUMBAR W/ Observed: 09/26/2017 Status: F Source: [facility] 12:36 PM [facility] REPOSITORY Exam Date/Time: 09/26/2017 12:43 EDT Reason for Exam: low back pain Report STUDY: XR Spine Lumbar w/ Obliques; 09/26/2017 12:43 pm INDICATION: low back pain. COMPARISON: None. ACCESSION NUMBER(S): [id number] ORDERING CLINICIAN: Brandon Meza FINDINGS: Five views of the lumbar spine including AP, lateral, lateral cone-down and bilateral oblique views were obtained. There is no acute fracture identified. There is mild anterolisthesis of L4 on L5 and mild retrolisthesis of L2 on L3. Rvak-po-ruvidjnm disc space narrowing and small marginal osteophytes are present at the L2-3 and L5-S1 levels. Minimal discogenic degenerative changes are seen elsewhere in the lumbar spine. Moderate facet degenerative changes are seen in the mid to lower lumbar spine. There is no evidence of pars interarticularis defect. IMPRESSION: 1. No evidence of acute fracture. 2. Degenerative changes throughout the lumbar spine, as described above. FINAL REPORT Dictated: 09/27/2017 2:48 pm Mele Silver MD Signed (Electronic Signature): 09/27/2017 2:48 pm Signed by: Mele Silver MD Technologist: HLL CBC W/DIFF, AUTOMATED Collected: 08/18/2017 Status: F Source: [facility] 12:36 PM [facility] REPOSITORY TYPE CODE TESTS RESULT OUT OF RANGE REFERENCE UNITS LAB L100.1000 4.4-11.0 K/mm3 Normal WBC 9.4 LAB L100.1200 4.2-5.4 M/mm3 Normal RBC 4.56 LAB L100.1300 12.0-15.0 g/dl Normal HGB 13.5 LAB L100.1400 37-47 % Normal HCT 41.8 LAB L100.1500 81-99 fL Normal MCV 91.7 LAB L100.1600 27.0-32.0 pg Normal MCH 29.6 LAB L100.1700 32-36 g/gl Normal MCHC 32.3 LAB L100.1810 11.6-14.6 % High RDW CV 14.9 LAB L100.1820 35.1-43.9 fl High RDW SD 48.9 LAB L100.1900 150-450 K/mm3 Normal PLT 274 LAB L100.2000 6.2-12.0 fl Normal MPV 9.9 LAB L100.2100 47-70 % Normal NEUT% 58.2 LAB L100.2200 19-41 % Normal LY% 32.0 LAB L100.2300 0-10 % Normal MONO% 7.7 LAB L100.2400 0-5 % Normal EO% 1.6 LAB L100.2500 0-1 % Normal BASO% 0.3 LAB L100.2550 0.0-0.9 % Normal IM GRAN % 0.200 Result Comment: IG% - Immature Granulocytes (promyelocytes, myelocytes and metamyelocytes) > 1% indicates that a LEFT SHIFT is Present. LAB L100.2620 2.0-7.7 X10 3/uL Normal Absolute Neut 5.5 LAB L100.2720 0.83-4.51 X10 3/ul Normal Absolute Lymph 3.01 Performed By: #### L100.0100 #### [facility] [address] [place], [address] COMPREHENSIVE METABOLIC Collected: 08/18/2017 Status: F [facility]:36 PM [facility] REPOSITORY TYPE CODE TESTS RESULT OUT OF RANGE REFERENCE UNITS LAB L501.0100 74-106 mg/dL Normal GLU 83 Result Comment: Please note revised GLUCOSE reference range effective 2017. LAB L501.1000 7-18 mg/dL Normal BUN 16 LAB L501.1100 0.55-1.02 mg/dL Normal CREAT,SERUM 0.84 Result Comment: The validity of the calculated GFR AND GFRAA in patients over 70 years has not been determined. Clinical correlation is essential. LAB L501.1110 >60 mL/min Normal EST GFR 71 Result Comment: Non- GFR Calc LAB L501.1115 >60 mL/min Normal EST GFR - AA 86 Result Comment: GFR Calc LAB L501.1300 10-20 RATIO Normal BUN/CRE 19.0 LAB L501.1500 6.4-8.2 g/dL T Normal PROT 6.8 LAB L501.1800 3.2-5.0 g/dL Normal ALB 3.5 LAB L501.1950 2.2-4.2 g/dL Normal GLOB 3.3 LAB L501.2000 0.9-2.4 RATIO Normal A/G 1.1 LAB L501.2200 8.5-10.1 mg/dL CA Normal 8.7 LAB L501.4100 15-37 U/L Normal AST 16 LAB L501.4305 45-117 U/L Normal ALK P 64 LAB L501.4405 13-56 U/L Normal ALT 30 LAB L501.4600 0.20-1.00 mg/dL T Normal BILI 0.30 LAB L501.5300 136-145 mmol/L NA Normal 142 LAB L501.5600 3.5-5.1 mmol/L K Normal 4.2 LAB L501.5900 98-107 mmol/L High CL 109 LAB L501.6100 21.0-32.0 mmol/L Normal CO2 27.0 LAB L501.6200 5-15 Normal GAP 6 Performed By: #### L500.4050 #### [facility] [address] [place], [place], [address] CBC W/DIFF, AUTOMATED Collected: 05/28/2017 Status: F Source: [place] 3:05 PM [facility] REPOSITORY TYPE CODE TESTS RESULT OUT OF RANGE REFERENCE UNITS LAB L100.1000 4.4-11.0 K/mm3 Normal WBC 10.8 LAB L100.1200 4.2-5.4 M/mm3 Normal RBC 4.80 LAB L100.1300 12.0-15.0 g/dl Normal HGB 13.9 LAB L100.1400 37-47 % Normal HCT 43.4 LAB L100.1500 81-99 fL Normal MCV 90.4 LAB L100.1600 27.0-32.0 pg Normal MCH 29.0 LAB L100.1700 32-36 g/gl Normal MCHC 32.0 LAB L100.1810 11.6-14.6 % High RDW CV 14.8 LAB L100.1820 35.1-43.9 fl High RDW SD 48.7 LAB L100.1900 150-450 K/mm3 Normal PLT 267 LAB L100.2000 6.2-12.0 fl Normal MPV 10.9 LAB L100.2100 47-70 % High NEUT% 72.2 LAB L100.2200 19-41 % Normal LY% 20.2 LAB L100.2300 0-10 % Normal MONO% 6.9 LAB L100.2400 0-5 % Normal EO% 0.1 LAB L100.2500 0-1 % Normal BASO% 0.2 LAB L100.2550 0.0-0.9 % Normal IM GRAN % 0.400 Result Comment: IG% - Immature Granulocytes (promyelocytes, myelocytes and metamyelocytes) > 1% indicates that a LEFT SHIFT is Present. LAB L100.2620 2.0-7.7 X10 3/uL High Absolute Neut 7.8 LAB L100.2720 0.83-4.51 X10 3/ul Normal Absolute Lymph 2.18 Performed By: #### L100.0100 #### [facility] [address] [place], [place], [id number] COMPREHENSIVE METABOLIC Collected: 05/28/2017 Status: F Source: [facility] 3:05 PM [facility] REPOSITORY TYPE CODE TESTS RESULT OUT OF RANGE REFERENCE UNITS LAB L501.0100 74-106 mg/dL Normal GLU 91 Result Comment: Please note revised GLUCOSE reference range effective 2017. LAB L501.1000 7-18 mg/dL Normal BUN 15 LAB L501.1100 0.55-1.02 mg/dL Normal CREAT,SERUM 0.93 Result Comment: The validity of the calculated GFR AND GFRAA in patients over 70 years has not been determined. Clinical correlation is essential. LAB L501.1110 >60 mL/min Normal EST GFR 64 Result Comment: Non- GFR Calc LAB L501.1115 >60 mL/min Normal EST GFR - AA 77 Result Comment: GFR Calc LAB L501.1300 10-20 RATIO Normal BUN/CRE 16.2 LAB L501.1500 6.4-8.2 g/dL T Normal PROT 7.4 LAB L501.1800 3.2-5.0 g/dL Normal ALB 3.6 LAB L501.1950 2.2-4.2 g/dL Normal GLOB 3.8 LAB L501.2000 0.9-2.4 RATIO Normal A/G 0.9 LAB L501.2200 8.5-10.1 mg/dL CA Normal 8.8 LAB L501.4100 15-37 U/L Normal AST 27 Result Comment: Moderate Hemolysis, Result may be falsely increased. LAB L501.4305 45-117 U/L Normal ALK P 81 LAB L501.4405 13-56 U/L Normal ALT 35 Result Comment: Please note revised ALT reference range effective 2017. LAB L501.4600 0.20-1.00 mg/dL Normal T BILI 0.30 LAB L501.5300 136-145 mmol/L Normal NA 140 LAB L501.5600 3.5-5.1 mmol/L Normal K 4.6 Result Comment: Moderate Hemolysis, Result may be falsely increased. LAB L501.5900 98-107 mmol/L Normal CL 107 LAB L501.6100 21.0-32.0 mmol/L Normal CO2 23.0 LAB L501.6200 5-15 Normal GAP 10 Performed By: #### L500.4050 #### [facility] [address] [facility] [place], [address] SCREENING MAMM (CAD), Observed: 05/28/2017 Status: F Source: [place] BILAT 1:57 PM [facility] REPOSITORY [facility] Imaging Services [address] [facility] [place] [address] SCREENING MAMM (CAD), BILAT MR#: [id number] Acct: [id number] Name: RADHA FROST Rep #: [id number] : 1945 F 71 From: Arthur Taveras MD PCP: Justo Craig MD, Chi Status: REG CLI Study: SCREENING MAMM (CAD), BILAT Date of Exam: 05/28/17 Exam# [id number] Ordering Dr: Justo Craig MD MAMMOGRAPHY - BILATERAL SCREENING REASON FOR EXAM: Female, 71 years old. Routine annual screening examination. PERTINENT HISTORY: Non-contributory. TECHNIQUE: Digital bilateral breast stewart (3D mammographic acquisition) in the CC and MLO projections. 2-D mediolateral oblique (MLO) and craniocaudad (CC) views of both breasts were obtained. CAD: Full Field Digital Mammography with Computer Added Detection was performed. COMPARISON: Comparison is made with prior study dated April 20, 2015 and April 01, 2013. FINDINGS: Breast Composition: The breasts are almost entirely fatty. There are no dominant masses or suspicious calcifications. No other significant abnormalities are identified. There has been no significant change since the prior study. BI/SCREENING MAMM (CAD), BILAT IMPRESSION: Stable bilateral screening mammogram. Yearly follow-up mammogram recommended. (A) ASSESSMENT CATEGORY: BIRADS Category 1: Negative. A letter regarding these results will be sent to the patient by the facility within 30 days. Approximately 10% of breast cancers are not detected by mammography. A normal mammogram should not delay biopsy of a clinically suspicious abnormality. [id number] Electronically Signed: Arthur Taveras MD at 9:12 EDT Tel [phone], Service support , CC: Justo Craig MD [place] Artist: Signed DX CERVICAL SPINE 2 Observed: 05/21/2017 Status: F Source: [facility] OR 3 VIEWS 2:26 PM HEALTH SYSTEM REPOSITORY Performed at [facility] APPROVED BY: Jewel Wild MD EXAM TITLE: CERVICAL SPINE DATE: 05/21/2017 14:22 COMPARISON: None. CLINICAL INDICATION/HISTORY: Neck pain TECHNIQUE: AP and lateral views of the cervical spine FINDINGS: There is an anterior fusion plate and screws at C5, C6 and C7 with interbody fusion devices. The hardware appears intact. No spondylolisthesis. No disc space narrowing or widening. No lyt ic or blastic osseous lesions. Soft tissues are unremarkable. IMPRESSION: Anterior fusion of C5-C7. Otherwise unremarkable cervical spine. CBC W/DIFF, AUTOMATED Collected: 05/01/2017 Status: F Source: [place] 11:41 AM [facility] REPOSITORY TYPE CODE TESTS RESULT OUT OF RANGE REFERENCE UNITS LAB L100.1000 4.4-11.0 K/mm3 Normal WBC 10.4 LAB L100.1200 4.2-5.4 M/mm3 Normal RBC 4.40 LAB L100.1300 12.0-15.0 g/dl Normal HGB 12.8 LAB L100.1400 37-47 % Normal HCT 39.5 LAB L100.1500 81-99 fL Normal MCV 89.8 LAB L100.1600 27.0-32.0 pg Normal MCH 29.1 LAB L100.1700 32-36 g/gl Normal MCHC 32.4 LAB L100.1810 11.6-14.6 % High RDW CV 14.7 LAB L100.1820 35.1-43.9 fl High RDW SD 47.4 LAB L100.1900 150-450 K/mm3 Normal PLT 225 LAB L100.2000 6.2-12.0 fl Normal MPV 10.2 LAB L100.2100 47-70 % Normal NEUT% 69.9 LAB L100.2200 19-41 % Normal LY% 23.5 LAB L100.2300 0-10 % Normal MONO% 5.4 LAB L100.2400 0-5 % Normal EO% 0.8 LAB L100.2500 0-1 % Normal BASO% 0.3 LAB L100.2550 0.0-0.9 % Normal IM GRAN % 0.100 Result Comment: IG% - Immature Granulocytes (promyelocytes, myelocytes and metamyelocytes) > 1% indicates that a LEFT SHIFT is Present. LAB L100.2620 2.0-7.7 X10 3/uL Normal Absolute Neut 7.3 LAB L100.2720 0.83-4.51 X10 3/ul Normal Absolute Lymph 2.44 Performed By: #### L100.0100 #### [facility] [place], [address] COMPREHENSIVE METABOLIC Collected: 05/01/2017 Status: F Source: [place] [facility] 11:41 AM [facility] REPOSITORY TYPE CODE TESTS RESULT OUT OF RANGE REFERENCE UNITS LAB L501.0100 74-106 mg/dL High GLU 142 Result Comment: Fasting Glucose result greater than or equal to 126 mg/dL suggests DIABETES MELLITUS per A.D.A. criteria. Please note revised GLUCOSE reference range effective 2017. LAB L501.1000 7-18 mg/dL Normal BUN 13 LAB L501.1100 0.55-1.02 mg/dL Normal CREAT,SERUM 0.85 Result Comment: The validity of the calculated GFR AND GFRAA in patients over 70 years has not been determined. Clinical correlation is essential. LAB L501.1110 >60 mL/min Normal EST GFR 71 Result Comment: Non- GFR Calc LAB L501.1115 >60 mL/min Normal EST GFR - AA 85 Result Comment: GFR Calc LAB L501.1300 10-20 RATIO Normal BUN/CRE 15.3 LAB L501.1500 6.4-8.2 g/dL T Normal PROT 6.7 LAB L501.1800 3.2-5.0 g/dL Normal ALB 3.3 LAB L501.1950 2.2-4.2 g/dL Normal GLOB 3.4 LAB L501.2000 0.9-2.4 RATIO Normal A/G 1.0 LAB L501.2200 8.5-10.1 mg/dL Low CA 8.3 LAB L501.4100 15-37 U/L Low AST 14 LAB L501.4305 45-117 U/L Normal ALK P 82 LAB L501.4405 13-56 U/L Normal ALT 31 Result Comment: Please note revised ALT reference range effective 2017. LAB L501.4600 0.20-1.00 mg/dL Normal T BILI 0.30 LAB L501.5300 136-145 mmol/L Normal NA 140 LAB L501.5600 3.5-5.1 mmol/L Normal K 4.3 LAB L501.5900 98-107 mmol/L High CL 108 LAB L501.6100 21.0-32.0 mmol/L Normal CO2 26.0 LAB L501.6200 5-15 Normal GAP 6 Performed By: #### L500.4050, L501.9195, L501.9520, L506.0400 #### [facility] [address] [place], [place], [address] T3 UPTAKE Collected: 05/01/2017 Status: F Source: [place] 11:41 AM [facility] REPOSITORY TYPE CODE TESTS RESULT OUT OF RANGE REFERENCE UNITS LAB L501.9210 30-39 % 36 Normal T3 UPTAKE LAB L501.9410 1.4-4.5 Test Normal T7 (FTI) not performed Performed By: #### L500.4050, L501.9195, L501.9520, L506.0400 #### [facility] [address] [place], [place], [id number] THYROID STIM HORMONE Collected: 05/01/2017 Status: F Source: [place] (TSH) 11:41 AM [facility] REPOSITORY TYPE CODE TESTS RESULT OUT OF RANGE REFERENCE UNITS LAB L501.9520 0.358-3.74 uIU/mL Normal TSH 0.77 Performed By: #### L500.4050, L501.9195, L501.9520, L506.0400 #### [facility] [address] [place], [address] T4 FREE DIRECT Collected: 05/01/2017 Status: F Source: [place] 11:41 AM [facility] REPOSITORY TYPE CODE TESTS RESULT OUT OF RANGE REFERENCE UNITS LAB L506.0400 0.76-1.46 ng/dL Normal T4 FREE 1.30 DIRECT Performed By: #### L500.4050, L501.9195, L501.9520, L506.0400 #### [facility] [address] [place], [address] VITAMIN D,25 HYDROXY Collected: 05/01/2017 Status: F Source: [place] 11:41 AM [facility] REPOSITORY TYPE CODE TESTS RESULT OUT OF REFERENCE UNITS RANGE LAB L506.1000 29.95-100.01 ng/mL Low Vitamin D 18.4 25-OH Result Comment: Vitamin D 25(OH) Status Range Deficiency <20 ng/mL (50nmol/L) Insuffciency 20 - 30 ng/mL (50 - 75 nmol/L) Sufficiency 30 - 100 ng/mL (75 - 250 nmol/L) Toxicity >100 ng/mL (>250 nmol/L) Performed By: #### L506.1000 #### [facility] [address] [place], [address] HEPATITIS C ANTIBODIES Collected: 05/01/2017 Status: F Source: [place] 11:41 AM [facility] REPOSITORY TYPE CODE TESTS RESULT OUT OF RANGE REFERENCE UNITS LAB L3100.0650 0.0-0.9 s/co ratio Normal HEP C AB <0.1 Result Comment: Negative: < 0.8 Indeterminate: 0.8 - 0.9 Positive: > 0.9 The CDC recommends that a positive HCV antibody result be followed up with a HCV Nucleic Acid Amplification test (715821). Performed at: [facility] [id number] [employer]: Harvey Ta PhD, Phone: [phone] Performed By: #### L3100.0625 #### [facility] (refer to report for specific site) refer to report for address and phone number THYROID STIM HORMONE Collected: 04/01/2017 Status: F Source: [place] (TSH) 11:50 AM [facility] REPOSITORY TYPE CODE TESTS RESULT OUT OF RANGE REFERENCE UNITS LAB L501.9520 0.358-3.74 uIU/mL Normal TSH 0.95 Performed By: #### L501.9520 #### [facility] [address] [place], [place], [address] CHEST WITH CONTRAST Observed: 03/27/2017 Status: F Source: [place] 2:47 PM [facility] REPOSITORY [facility] Imaging Services [address] [place] [address] Chest WITH Contrast MR#: [id number] Acct: [id number] Name: RADHA FROST Rep #: [id number] : 1945 F 71 From: Trey Storm DO PCP: Justo Craig MD, Chi Status: REG CLI Study: Chest WITH Contrast Date of Exam: 03/27/17 Exam# [id number] Ordering Dr: Justo Craig MD STUDY: CT CHEST WITH CONTRAST REASON FOR EXAM: Female, 71 years old. Follow-up lung nodule. RADIATION DOSAGE (If Supplied By Facility): CTDIvol = ( 14.44 ) mGy, DLP = ( 638.06 ) mGycm TECHNIQUE: Transaxial imaging was performed following intravenous administration of 100 ml of Isovue 300 contrast material. Multiplanar coronal and sagittal images were reformatted. Individualized dose optimization techniques were used for this CT. COMPARISON: CT of the chest, May 11, 2016. FINDINGS: There is a 3.5 x 3 x 6 cm irregular nodular density in the left lung apex best seen on image 11 of series 4. There is no other evidence of mass or nodule. There is no demonstrated pleural abnormality. Normal heart and pericardium. There are calcifications of the coronary arteries. Normal mediastinum. Normal hilar regions. Normal enhanced pulmonary arteries. There is atherosclerotic calcification of the aortic arch with tortuosity and elongation of the aortic arch and descending thoracic aorta. There are multi-level degenerative changes of the thoracic spine. There is no demonstrated abnormality of the visualized upper abdomen. CT/Chest WITH Contrast IMPRESSION: Stable nodular density in the left lung apex. A repeat examination one year is recommended to confirm stability. Electronically Signed: Trey Storm DO at 16:07 EST Tel [phone], Service support , CC: Justo Craig MD [place] Artist: Signed ALLERGIES ALLERGIES DATE TYPE / CODE NAME / CODE REACTION SEVERITY SOURCE Drug NO KNOWN [facility] Class/19223 ALLERGIES Other [place] 1003(SNOMED Repository CT) [id number] NO KNOWN [place] [address]([facility] CT) Repository ENCOUNTERS ENCOUNTERS ADMIT/DISCHARGE ACCOUNT NUMBER ADMITTING ENCOUNTER LOCATION SOURCE CLASS 03/16/2018 [id number] [facility] ding:LAB Repository 02/25/2018 [id number] [facility] ding:PSN Repository 01/27/2018 [id number] [facility] ding:MTLAB Repository 11/11/2017 [id number] [facility] ding:MTLAB Repository 10/30/2017 [id number] [facility] ding:POLAB3 Repository 09/26/2017/09/27/[id number] ding:[facility] Repository 09/26/[id number] Repository 08/18/2017 [id number] [facility] ding:MTLAB Repository 05/28/2017 [id number] [facility] ding:OPBI Repository 05/21/2017 [id number] Ambulatory [facility] Other [place] Repository 05/21/2017 [id number] Ambulatory [facility] MEDICAL Repository CENTERBuildi ng:AKXRC 05/01/2017 [id number] [facility] ding:POLAB3 Repository 04/01/2017 [id number] [facility] ding:LAB.FUT Repository URE 03/27/2017 [id number] [facility] ding:CT Repository PAYERS PAYERS ENCOUNTER GUARANTOR PAYER SUBSCRIBER SOURCE 03/16/2018 TALISHA GARCIA S [facility] [id number] CR Insurance:MEDICARE BAIRDOB: [address] A BPolicy Number: [id number] Hospital , [place] [address]Psm: [id number] Repository Date:2018-03-16 () 03/16/2018 Secondary RADHA S PRAKASH [place] Insurance:HUMANA BAIRDOB: [facility] [id number] Hospital Number: Repository [id number] Date:8582-53-18GN [address] [address]IU: 03/16/2018 Tertiary NOT GIVENUNK [place] Insurance:SELF PAY [facility] Number: Effective Repository Date:2018-03-16 02/25/2018 TALISHA Yeung Primary RADHA S PRAKASH [place] [id number] CR Insurance:MEDICARE BAIRDOB: [address] A BPolicy Number: [id number] Hospital , [place] [address]Apc: [id number] Repository Date:2018-02-25 () 02/25/2018 Secondary RADHA S PRAKASH [place] Insurance:HUMANA BAIRDOB: [facility] [id number] Hospital Number: Repository [id number] Date:5067-98-90SO [address] [address]YM: 02/25/2018 Tertiary NOT GIVENUNK [place] Insurance:SELF PAY [facility] Number: Effective Repository Date:2018-02-25 01/27/2018 Talisha Yeung Primary RADHA S PRAKASH [place] [id number] CR Insurance:MEDICARE BAIRDOB: [address] A BPolicy Number: [id number] Hospital , [place] [id number]: [id number] Repository Date:2018-01-27 () 01/27/2018 Secondary RADHA S PRAKASH [place] Insurance:HUMANA BAIRDOB: [facility] [id number] Hospital Number: Repository [id number] Date:7813-42-29WC [address] [address]WP: 01/27/2018 Tertiary NOT GIVENUNK [place] Insurance:SELF PAY [facility] Number: Effective Repository Date:2018-01-27 11/11/2017 Talisha Yeung Primary RADHA S PRAKASH [place] [id number] CR Insurance:MEDICARE BAIRDOB: Community [address] [place] [address] PART A BPolicy Number: [id number], [place] [address]Nwc: [id number] Repository Date:2017-11-11 () 11/11/2017 Secondary RADHA S PRAKASH [place] Insurance:HUMANA BAIRDOB: Community COMMERCIALPoly [id number] Hospital Number: Repository [id number] Date:1512-31-21XN [address] [place] [address]EK: 11/11/2017 Tertiary NOT GIVENUNK [place] Insurance:SELF PAY [facility] Number: Effective Repository Date:2017-11-11 10/30/2017 Talisha Yeung Primary RADHA S PRAKASH [place] [id number] CR Insurance:MEDICARE BAIRDOB: [address] PART A BPolicy Number: [id number], [place] [address]Dkg: [id number] Repository Date:2017-10-30 (HP) 10/30/2017 Secondary RADHA S PRAKASH [place] Insurance:HUMANA BAIRDOB: [facility] [id number] Hospital Number: Repository [id number] Date:7847-14-60TV [address] [place] [address]WS: 10/30/2017 Tertiary NOT GIVENUNK [place] Insurance:SELF PAY [facility] Number: Effective Repository Date:2017-10-30 09/26/2017 RADHA S Primary RADHA S [place] PRAKASH-BAIRDOB: Insurance:MedicarePoli PRAKASH-BAIRDOB: [facility] cy Number: Effective [id number] [facility] [address] Date:2017-09-26 - [facility] [address] Repository [address] [place] [address] [id number] Name:CD:[id number] [facility] [address]Svo: [id number], [place] [address]Pfr: [phone]: ([phone] (GB) [phone] (HP) (WP) 09/26/2017 Secondary RADHA S Caodaism Insurance:HUMANAPolicy PRAKASH-BAIRDOB: [facility] Health Number: Effective [id number] System Date:2017-09-26 - [facility] Repository [id number] [place] [address], Name:CD:[id number] [facility] [address]DC[place], [place] [address]Pig: [phone]: [phone] (HP) (WP) 09/26/2017 RADHA BAIRDOB: Primary RADHA BAIRDOB: [place] Insurance:MedicarePoli [id number] [place] [address] cy Number: [facility] Repository [address] [place] [address] [id number] [place] [address] Date:Plan Name:[place] [id number]: [id number]: (HP) (HP) 09/26/2017 Secondary RADHA BAIRDOB: [place] Insurance:[facility] [id number] Hospitals HumanaPolicy Number: [facility] Repository [id number] [address] [place] [address], Date:Plan Name:Health [place] [id number]: (HP) 08/18/2017 [place] Yeung Primary RADHA S PRAKASH [place] [id number] Insurance:MEDICARE BAIRDOB: [address] PART A BPolicy Number: [id number], [place] [address]Srg: [id number] Repository Date:2017-08-18 (HP) 08/18/2017 Secondary RADHA S PRAKASH [place] Insurance:HUMANA BAIRDOB: [facility] [id number] Hospital Number: Repository [id number] Date:0669-77-12XB [address] [place] [address]YU: 08/18/2017 Tertiary NOT GIVENUNK [place] Insurance:SELF PAY [facility] Number: Effective Repository Date:2017-08-18 05/28/2017 Talisha Yeung Primary RADHA S PRAKASH [place] [id number] CR Insurance:MEDICARE BAIRDOB: [address] A BPolicy Number: [id number], [place] [address]Pdc: [id number] Repository Date:2017-05-05 (HP) 05/28/2017 Secondary RADHA S PRAKASH [place] Insurance:HUMANA BAIRDOB: [facility] [id number] Hospital Number: Repository [id number] Date:7309-16-45LL [address] [address]KP: 05/28/2017 Tertiary NOT GIVENUNK [place] Insurance:SELF PAY [facility] Number: Effective Repository Date:2017-05-05 05/21/2017 RADHA S Primary RADHA S [facility] BAIRDOB: Insurance:MEDICARE A BAIRDOB: Health System AND BPolicy Number: [id number] [id number] [address] [place] [address] Date: , [place] [address]Qcp: (HP) 05/21/2017 Secondary RADHA S [facility] Insurance:HUMANA BAIRDOB: Health System MEDICARE [id number] Repository SUPPLEMENTPolicy Number: [id number] Date: 05/01/2017 Talisha Yeung Primary RADHA S PRAKASH [place] [id number] CR Insurance:MEDICARE BAIRDOB: [address] PART A BPolicy Number: [id number], [place] [address]Afq: [id number] Repository Date:2017-05-01 (HP) 05/01/2017 Secondary RADHA S PRAKASH [place] Insurance:HUMANA BAIRDOB: [facility] [id number] Hospital Number: Repository [id number] Date:2000-21-50IZ [address] [place] [address]ZF: 05/01/2017 Tertiary NOT GIVENUNK [place] Insurance:SELF PAY [facility] Number: Effective Repository Date:2017-05-01 04/01/2017 [place] Yeung Primary RADHA S PRAKASH [place] [id number] CR Insurance:MEDICARE BAIRDOB: [address] BPolicy Number: [id number], [place] [address]Ylx: [id number] Repository Date:2017-02-27 () 04/01/2017 Secondary RADHA S PRAKASH [place] Insurance:HUMANA BAIRDOB: [facility] [id number] Hospital Number: Repository [id number] Date:8960-74-58FO [address] [place] [address]YR: 04/01/2017 Tertiary NOT GIVENUNK [place] Insurance:SELF PAY [facility] Hospital Number: Effective Repository Date:2017-02-27 03/27/2017 Talisha Yeung Primary RADHA S PRAKASH [place] [id number] CR Insurance:MEDICARE BAIRDOB: [address] BPolicy Number: [id number], [place] [address]Bfu: [id number] Repository Date:2017-03-20 () 03/27/2017 Secondary RADHA S PRAKASH [place] Insurance:HUMANA BAIRDOB: [facility] [id number] Hospital Number: Repository [id number] Date:0330-43-48QH [address] [place] [address]QD: 03/27/2017 Tertiary NOT GIVENUNK [place] Insurance:SELF PAY [facility] Number: Effective Repository Date:2017-03-20
== END ==
PROVIDERS: Family Provider Family Medicine Geriatric Medicine; PCP Family Medicine Geriatric Medicine; Referring Provider Internal Medicine Rheumatology; Visit Provider Internal Medicine Rheumatology
DX: M06.4 Inflammatory polyarthropathy (principal); Z79.899 Other long term (current) drug therapy; M79.7 Fibromyalgia; M18.11 Unilateral primary osteoarthritis of first carpometacarpal joint, right hand; M15.9 Polyosteoarthritis, unspecified; M35.00 Sjogren syndrome, unspecified; M47.892 Other spondylosis, cervical region; E89.0 Postprocedural hypothyroidism; F32.89 Other specified depressive episodes
CPT/HCPCS: 36415; 80053; 85025

== ENCOUNTER → 2018-05-05 11:30 | Outpatient (CLI) | payer MEDICARE, OTHER, SELFPAY ==
[2018-05-05 12:39] LABS: Absolute Lymphocyte Count 1.76 X10^3/ul (0.83-4.51); Basophil# 0.04 X10^3/uL; Basophil% 0.4 % (0-1); Eosinophil# 0.01 X10^3/uL; Eosinophils% 0.1 % (0-5); Hematocrit 41.9 % (37-47); Hemoglobin 13.4 g/dl (12.0-15.0); Lymphocyte # 1.76 X10^3/ul (4.0); Lymphocyte % 17.7 % (19-41); Mean Corpuscular Volume 93.7 fL (81-99); Mean Platelet Vol. 9.9 fl (6.2-12.0); Monocyte# 0.11 X10^3/uL; Monocyte% 1.1 % (0-10); Neutrophil # 7.99 X10^3/uL (2.7-7.7); Neutrophil % 80.4 % (47-70); Platelet Count 292 K/mm3 (150-450); RBC Distribution Width CV 15.7 % (11.6-14.6); RBC Distribution Width SD 52.8 fl (35.1-43.9); Red Blood Count 4.47 M/mm3 (4.2-5.4); White Blood Count 9.9 K/mm3 (4.4-11.0)
[2018-05-05 12:40] LABS: POSITIVE COUNT NO; POSITIVE DIFFERENTIAL NO; POSITIVE MORPHOLOGY NO
[2018-05-05 13:12] LABS: ALB/GLOB Ratio 1.1 RATIO (0.9-2.4); AST(SGOT) 15 U/L (15-37); Alanine Aminotransfer ALT/SGPT 27 U/L (13-56); Albumin, Serum 3.5 g/dL (3.2-5.0); Alkaline Phosphatase 68 U/L (45-117); Anion Gap 12 (5-15); BUN 15 mg/dL (7-18); BUN/Creat Ratio 14.4 RATIO (10-20); Calcium,Total 8.3 mg/dL (8.5-10.1); Chloride 108 mmol/L (98-107); Creatinine, Serum 1.04 mg/dL (0.55-1.02); EST Glomerular Filtration Rate 56 mL/min (>60); Est Glom Filt Rate - Afr Amer 67 mL/min (>60); Globulin 3.3 g/dL (2.2-4.2); Glucose 163 mg/dL (74-106); Potassium 4.1 mmol/L (3.5-5.1); Protein, Total 6.8 g/dL (6.4-8.2); Sodium Level 144 mmol/L (136-145)
== END ==
PROVIDERS: Family Provider Family Medicine Geriatric Medicine; PCP Family Medicine Geriatric Medicine; Referring Provider Internal Medicine Rheumatology; Visit Provider Internal Medicine Rheumatology
DX: M06.4 Inflammatory polyarthropathy (principal); Z79.899 Other long term (current) drug therapy; M79.7 Fibromyalgia; M18.11 Unilateral primary osteoarthritis of first carpometacarpal joint, right hand; M35.00 Sjogren syndrome, unspecified; M47.892 Other spondylosis, cervical region; E89.0 Postprocedural hypothyroidism; F32.89 Other specified depressive episodes
CPT/HCPCS: 36415; 80053; 85025

== ENCOUNTER → 2018-05-11 13:43 | Outpatient (CLI) | payer MEDICARE, OTHER, SELFPAY ==
[2018-05-11 14:50] LABS: Absolute Lymphocyte Count 2.56 X10^3/ul (0.83-4.51); Absolute Neutrophil Count 6.4 X10^3/uL (2.0-7.7); Basophil# 0.05 X10^3/uL; Basophil% 0.5 % (0-1); Eosinophil# 0.13 X10^3/uL; Eosinophils% 1.3 % (0-5); Hematocrit 43.4 % (37-47); Hemoglobin 13.8 g/dl (12.0-15.0); Lymphocyte # 2.56 X10^3/ul (4.0); Lymphocyte % 26.4 % (19-41); Mean Corp Hgb Conc 31.8 g/gl (32-36); Mean Corpuscular Hgb 30.2 pg (27.0-32.0); Mean Platelet Vol. 10.2 fl (6.2-12.0); Monocyte# 0.58 X10^3/uL; Neutrophil # 6.35 X10^3/uL (2.7-7.7); Neutrophil % 65.5 % (47-70); Platelet Count 282 K/mm3 (150-450); RBC Distribution Width CV 16.2 % (11.6-14.6); RBC Distribution Width SD 53.8 fl (35.1-43.9); Red Blood Count 4.57 M/mm3 (4.2-5.4); White Blood Count 9.7 K/mm3 (4.4-11.0)
[2018-05-11 14:56] LABS: POSITIVE COUNT NO; POSITIVE DIFFERENTIAL NO; POSITIVE MORPHOLOGY NO
[2018-05-11 15:07] LABS: Vitamin D,25 Hydroxy 32.5 ng/mL (29.95-100.01)
[2018-05-11 15:10] LABS: ALB/GLOB Ratio 1.1 RATIO (0.9-2.4); AST(SGOT) 15 U/L (15-37); Alanine Aminotransfer ALT/SGPT 28 U/L (13-56); Albumin, Serum 3.5 g/dL (3.2-5.0); Alkaline Phosphatase 64 U/L (45-117); Anion Gap 5 (5-15); BUN 16 mg/dL (7-18); BUN/Creat Ratio 15.8 RATIO (10-20); Calcium,Total 8.6 mg/dL (8.5-10.1); Chloride 108 mmol/L (98-107); Creatinine, Serum 1.01 mg/dL (0.55-1.02); EST Glomerular Filtration Rate 58 mL/min (>60); Est Glom Filt Rate - Afr Amer 70 mL/min (>60); Globulin 3.1 g/dL (2.2-4.2); Glucose 142 mg/dL (74-106); Potassium 4.1 mmol/L (3.5-5.1); Protein, Total 6.6 g/dL (6.4-8.2); Sodium Level 138 mmol/L (136-145); Thyroid Stim Hormone (TSH) 0.61 uIU/mL (0.358-3.74)
== END ==
PROVIDERS: Family Provider Family Medicine Geriatric Medicine; PCP Family Medicine Geriatric Medicine; Visit Provider Family Medicine Geriatric Medicine
DX: E55.9 Vitamin D deficiency, unspecified (principal); R53.83 Other fatigue
CPT/HCPCS: 36415; 80053; 82306; 84443; 85025

== ENCOUNTER → 2018-07-27 | Outpatient (CLI) | payer MEDICARE, OTHER, SELFPAY ==
[2018-07-27 17:26] LABS: Absolute Lymphocyte Count 2.08 X10^3/ul (0.83-4.51); Basophil# 0.02 X10^3/uL; Basophil% 0.3 % (0-1); Eosinophil# 0.14 X10^3/uL; Eosinophils% 1.8 % (0-5); Hematocrit 38.5 % (37-47); Hemoglobin 12.4 g/dl (12.0-15.0); Lymphocyte # 2.08 X10^3/ul (4.0); Lymphocyte % 26.5 % (19-41); Mean Corp Hgb Conc 32.2 g/gl (32-36); Mean Corpuscular Hgb 29.7 pg (27.0-32.0); Mean Corpuscular Volume 92.3 fL (81-99); Mean Platelet Vol. 10.9 fl (6.2-12.0); Monocyte# 0.62 X10^3/uL; Monocyte% 7.9 % (0-10); Neutrophil # 4.99 X10^3/uL (2.7-7.7); Neutrophil % 63.5 % (47-70); Platelet Count 247 K/mm3 (150-450); RBC Distribution Width CV 13.9 % (11.6-14.6); Red Blood Count 4.17 M/mm3 (4.2-5.4); White Blood Count 7.9 K/mm3 (4.4-11.0)
[2018-07-27 17:35] LABS: POSITIVE COUNT NO; POSITIVE DIFFERENTIAL NO; POSITIVE MORPHOLOGY NO
[2018-07-27 17:47] LABS: ALB/GLOB Ratio 0.9 RATIO (0.9-2.4); AST(SGOT) 14 U/L (15-37); Alanine Aminotransfer ALT/SGPT 25 U/L (13-56); Albumin, Serum 3.1 g/dL (3.2-5.0); Alkaline Phosphatase 72 U/L (45-117); Anion Gap 9 (5-15); BUN 8 mg/dL (7-18); BUN/Creat Ratio 9.4 RATIO (10-20); Calcium,Total 8.4 mg/dL (8.5-10.1); Chloride 109 mmol/L (98-107); Creatinine, Serum 0.85 mg/dL (0.55-1.02); EST Glomerular Filtration Rate 70 mL/min (>60); Est Glom Filt Rate - Afr Amer 85 mL/min (>60); Globulin 3.5 g/dL (2.2-4.2); Glucose 112 mg/dL (74-106); Potassium 3.9 mmol/L (3.5-5.1); Protein, Total 6.6 g/dL (6.4-8.2); Sodium Level 145 mmol/L (136-145)
== END | disposition home or self-care (01) ==
LOC: MTLAB 15:37
PROVIDERS: Family Provider Family Medicine Geriatric Medicine; PCP Family Medicine Geriatric Medicine; Referring Provider Internal Medicine Rheumatology; Visit Provider Internal Medicine Rheumatology
DX: M06.4 Inflammatory polyarthropathy (principal); Z79.899 Other long term (current) drug therapy; M79.7 Fibromyalgia; M18.11 Unilateral primary osteoarthritis of first carpometacarpal joint, right hand; M15.9 Polyosteoarthritis, unspecified; M35.00 Sjogren syndrome, unspecified; M47.892 Other spondylosis, cervical region; E89.0 Postprocedural hypothyroidism; F32.89 Other specified depressive episodes
CPT/HCPCS: 36415; 80053; 85025

== ENCOUNTER → 2018-10-30 14:32 | Outpatient (CLI) | payer MEDICARE, OTHER, SELFPAY ==
[2018-10-30 15:30] LABS: Absolute Neutrophil Count 8.6 X10^3/uL (2.0-7.7); Basophil# 0.02 X10^3/uL; Basophil% 0.2 % (0-1); Hematocrit 42.8 % (37-47); Lymphocyte % 13.6 % (19-41); Mean Corp Hgb Conc 32.7 g/dL (32-36); Mean Corpuscular Volume 91.6 fL (81-99); Monocyte# 0.18 X10^3/uL; Monocyte% 1.8 % (0-10); NRBC Flagged by Analyzer 0 % (0-5); Neutrophil # 8.64 X10^3/uL (2.7-7.7); Neutrophil % 84.1 % (47-70); Platelet Count 285 K/mm3 (150-450); RBC Distribution Width CV 14.7 % (11.6-14.6); RBC Distribution Width SD 49.1 fl (35.1-43.9); Red Blood Count 4.67 M/mm3 (4.2-5.4); White Blood Count 10.3 K/mm3 (4.4-11.0)
[2018-10-30 15:59] LABS: AST(SGOT) 19 U/L (15-37); Alanine Aminotransfer ALT/SGPT 28 U/L (13-56); Albumin, Serum 3.5 g/dL (3.2-5.0); Alkaline Phosphatase 69 U/L (45-117); Anion Gap 6 (5-15); BUN 13 mg/dL (7-18); BUN/Creat Ratio 12.7 RATIO (10-20); Calcium,Total 8.7 mg/dL (8.5-10.1); Chloride 107 mmol/L (98-107); Creatinine, Serum 1.02 mg/dL (0.55-1.02); EST Glomerular Filtration Rate 57 mL/min (>60); Est Glom Filt Rate - Afr Amer 69 mL/min (>60); Globulin 3.4 g/dL (2.2-4.2); Glucose 101 mg/dL (74-106); Potassium 4.3 mmol/L (3.5-5.1); Protein, Total 6.9 g/dL (6.4-8.2); Sodium Level 140 mmol/L (136-145)
== END ==
PROVIDERS: Family Provider Family Medicine Geriatric Medicine; PCP Family Medicine Geriatric Medicine; Referring Provider Internal Medicine Rheumatology; Visit Provider Internal Medicine Rheumatology
DX: M06.4 Inflammatory polyarthropathy (principal); Z79.899 Other long term (current) drug therapy; M79.7 Fibromyalgia; M18.11 Unilateral primary osteoarthritis of first carpometacarpal joint, right hand; M35.00 Sjogren syndrome, unspecified; M47.892 Other spondylosis, cervical region; E89.0 Postprocedural hypothyroidism; F32.9 Major depressive disorder, single episode, unspecified
CPT/HCPCS: 36415; 80053; 85025

== ENCOUNTER → 2018-11-10 08:53 | Outpatient (CLI) | payer MEDICARE, OTHER, SELFPAY ==
--- NOTE | 2018-11-10 11:15 | RAD_ITS ---
STUDY: X-RAY - LUMBAR SPINE REASON FOR EXAM: Female, 73 years old. Chronic lower back pain. TECHNIQUE: 3 view(s) of the lumbar spine were obtained. COMPARISON: None FINDINGS: There is a grade 1 anterior spondylolisthesis of L5 on S1. There is no substantial scoliosis. There is a normal alignment of the vertebrae. There is multilevel endplate spondylosis of the lumbar vertebrae. There is multi-level degenerative disc disease with multi-level disc space narrowing. There is atherosclerotic calcification of the abdominal aorta without a demonstrated aneurysm. RAD/Lumbar Spine 2 or 3 Views IMPRESSION: Degenerative changes of the spine, as detailed above. Grade 1 anterior spondylolisthesis of L5 on S1. Atherosclerosis. Electronically Signed: Yoly Goode MD at 20:56 EDT Tel , Service support ,
[2018-11-10 12:32] LABS: Absolute Lymphocyte Count 2.69 X10^3/uL (0.83-4.51); Absolute Neutrophil Count 6.5 X10^3/uL (2.0-7.7); Basophil# 0.07 X10^3/uL; Basophil% 0.7 % (0-1); Eosinophil# 0.14 X10^3/uL; Eosinophils% 1.4 % (0-5); Hematocrit 45.2 % (37-47); Hemoglobin 14.5 g/dL (12.0-15.0); Lymphocyte # 2.69 X10^3/ul (4.0); Lymphocyte % 26.7 % (19-41); Mean Corp Hgb Conc 32.1 g/dL (32-36); Mean Corpuscular Hgb 29.7 pg (27.0-32.0); Mean Corpuscular Volume 92.4 fL (81-99); Mean Platelet Vol. 10.6 fl (6.2-12.0); Monocyte# 0.64 X10^3/uL; Monocyte% 6.4 % (0-10); NRBC Flagged by Analyzer 0 % (0-5); Neutrophil # 6.48 X10^3/uL (2.7-7.7); Neutrophil % 64.4 % (47-70); Platelet Count 254 K/mm3 (150-450); RBC Distribution Width CV 14.6 % (11.6-14.6); RBC Distribution Width SD 49.2 fl (35.1-43.9); Red Blood Count 4.89 M/mm3 (4.2-5.4); White Blood Count 10.1 K/mm3 (4.4-11.0)
[2018-11-10 13:01] LABS: ALB/GLOB Ratio 1.1 RATIO (0.9-2.4); AST(SGOT) 15 U/L (15-37); Alanine Aminotransfer ALT/SGPT 21 U/L (13-56); Albumin, Serum 3.4 g/dL (3.2-5.0); Alkaline Phosphatase 65 U/L (45-117); Anion Gap 9 (5-15); BUN 11 mg/dL (7-18); Calcium,Total 8.8 mg/dL (8.5-10.1); Chloride 109 mmol/L (98-107); EST Glomerular Filtration Rate 58 mL/min (>60); Est Glom Filt Rate - Afr Amer 70 mL/min (>60); Globulin 3.2 g/dL (2.2-4.2); Glucose 118 mg/dL (74-106); Potassium 3.9 mmol/L (3.5-5.1); Protein, Total 6.6 g/dL (6.4-8.2); Sodium Level 144 mmol/L (136-145); Thyroid Stim Hormone (TSH) 0.58 uIU/mL (0.358-3.74)
== END ==
LOC: POLAB3 08:54 → RAD 11:14
PROVIDERS: Family Provider Family Medicine Geriatric Medicine; PCP Family Medicine Geriatric Medicine; Referring Provider Family Medicine Geriatric Medicine; Visit Provider Family Medicine Geriatric Medicine
DX: R53.83 Other fatigue (principal); E55.9 Vitamin D deficiency, unspecified
CPT/HCPCS: 36415; 72100; 80053; 82306; 84443; 85025

== ENCOUNTER → 2018-11-18 14:51 | Outpatient (CLI) | payer MEDICARE, OTHER, SELFPAY ==
--- NOTE | 2018-11-18 14:59 | MRI_ITS ---
STUDY: MRI LUMBAR SPINE WITHOUT CONTRAST REASON FOR EXAM: Female, 73 years old. Low back pain radiating into the legs for several years TECHNIQUE: Standardized fat and water weighted pulse sequences were obtained in the sagittal and axial planes. COMPARISON: Lumbar spine radiographs of February 09, 2019 FINDINGS: T12-L1: Normal endplates. Normal disc height, hydration and morphology. Normal bilateral facet joints. Normal central canal and bilateral lateral recesses. Normal bilateral intervertebral neural foramina. Normal lumbar lordosis. There is no substantial scoliosis. Normal conus medullaris that terminates at the T12 level. L1-2: Normal endplates. Normal disc height, hydration and morphology. Normal bilateral facet joints. Normal central canal and bilateral lateral recesses. Normal bilateral intervertebral neural foramina. L2-3: Type I Modic changes. Decreased disc height, hydration and morphology. Normal bilateral facet joints. Normal central canal and bilateral lateral recesses. Slight retrolisthesis and Narrowed bilateral intervertebral neural foramina. L3-4: Normal endplates. Mild broad-based annular bulge. Normal disc height, hydration and morphology. Hypertrophic bilateral facet joints. Normal central canal and bilateral lateral recesses. Narrowed bilateral intervertebral neural foramina. L4-5: Slight anterior subluxation. Small broad-based posterior disc bulge and annular tear. Hypertrophic facet disease and moderate narrowing of the neural foramina bilaterally. Central thecal sac patent. L5-S1: Normal endplates. Normal disc height, hydration and morphology. Normal bilateral facet joints. Normal central canal and bilateral lateral recesses. Normal bilateral intervertebral neural foramina. Right hemilaminectomy. Normal visualized sacral ala. Normal visualized paraspinous soft tissue structures. MRI/Spine Lumbar (Routine) IMPRESSION: Multilevel neural foraminal narrowing as noted above. Electronically Signed: Miguel Herr MD at 21:03 EDT , Service support ,
== END ==
PROVIDERS: Family Provider Family Medicine Geriatric Medicine; PCP Family Medicine Geriatric Medicine; Referring Provider Family Medicine Geriatric Medicine; Visit Provider Family Medicine Geriatric Medicine
DX: M54.5 Low back pain (principal)
CPT/HCPCS: 72148

== ENCOUNTER → 2018-12-16 10:42 | Outpatient (CLI) | payer MEDICARE, OTHER, SELFPAY ==
--- NOTE | 2018-12-16 10:47 | RAD_ITS ---
STUDY: X-RAY - CERVICAL SPINE REASON FOR EXAM: Female, 73 years old. Chronic neck pain. Patient has had previous cervical spine surgery. TECHNIQUE: 3 view(s) of the cervical spine were obtained. COMPARISON: CT of cervical spine dated December 15, 2015. FINDINGS: Normal anterior atlantoaxial articulation. Normal odontoid process. Normal cervical lordosis. The bones appear osteopenic. The patient has had discectomies at C5-6 and C6-7 with surgical fusion via anterior plate and screws. There is narrowing of the remaining intervertebral disc spaces. Posterior elements have normal alignment. Spinous processes are intact. Lung apices appear to be clear. Prevertebral and paraspinal soft tissues are within normal limits. RAD/Cerv Spine 2 or 3 Views IMPRESSION: 1. Osteopenia. 2. Multilevel degenerative disc disease and degenerative arthropathy of the cervical spine. 3. Status post discectomies at C5-6 and C6-7 with surgical fusion. Electronically Signed: Alia Ellis MD at 4:54 EDT , Service support ,
== END ==
PROVIDERS: Family Provider Family Medicine Geriatric Medicine; PCP Family Medicine Geriatric Medicine; Referring Provider Anesthesiology Pain Medicine; Visit Provider Anesthesiology Pain Medicine
DX: M54.2 Cervicalgia (principal)
CPT/HCPCS: 72040

== ENCOUNTER → 2019-04-07 12:41 | Outpatient (CLI) | payer MEDICARE, OTHER, SELFPAY ==
[2019-04-07 13:48] LABS: Amphetamine Urine VISTA NEGATIVE (<1000 ng/mL); Barbiturate Urine VISTA NEGATIVE (< 200 ng/mL); Benzodiazepine Urine VISTA NEGATIVE (< 200 ng/mL); Cocaine Urine VISTA NEGATIVE (< 300 ng/mL); Ecstacy Urine VISTA NEGATIVE (< 500 ng/mL); Methadone Urine VISTA NEGATIVE (< 300 ng/mL); PCP Urine VISTA NEGATIVE (< 25 ng/mL); THC Urine VISTA NEGATIVE (< 50 ng/mL); Vista UDS pH Range 5
== END ==
PROVIDERS: PCP Family Medicine Geriatric Medicine; Referring Provider Anesthesiology Pain Medicine; Visit Provider Anesthesiology Pain Medicine
DX: F11.20 Opioid dependence, uncomplicated (principal)
CPT/HCPCS: 80307

== ENCOUNTER → 2019-05-05 12:43 | Outpatient (CLI) | payer MEDICARE, OTHER, SELFPAY ==
--- NOTE | 2019-05-05 12:53 | RAD_ITS ---
STUDY: X-RAY - PELVIS AND RIGHT HIP REASON FOR EXAM: Female, 73 years old. HIP PAIN RADIATES INTO THIGH TO KNEE; -- RHEUMATOID ARTHRITIS TECHNIQUE: 3 views of the pelvis and hip. COMPARISON: September 30, 2014 FINDINGS: There is a non-specific bowel gas pattern. Normal visualized soft tissue structures. Normal bilateral iliac wings, sacroiliac joints and visualized sacrum. Normal bilateral superior and inferior pubic rami. Normal pubic symphysis. Normal bilateral ischial tuberosities. Normal visualized femoral head. Normal acetabulum. Normal hip joint. RAD/HIP, UNI W/ Pelvis 2-3 Views IMPRESSION: Normal x-ray examination of the pelvis and hip. Electronically Signed: Miguel Herr MD at 0:01 EDT , Service support ,
== END ==
PROVIDERS: PCP Family Medicine Geriatric Medicine; Referring Provider Anesthesiology Pain Medicine; Visit Provider Anesthesiology Pain Medicine
DX: M25.559 Pain in unspecified hip (principal)
CPT/HCPCS: 73502

== ENCOUNTER → 2019-05-13 09:54 | Outpatient (CLI) | payer MEDICARE, OTHER, SELFPAY ==
[2019-05-13 11:53] LABS: Absolute Lymphocyte Count 3.27 X10^3/uL (0.83-4.51); Absolute Neutrophil Count 13.3 X10^3/uL (2.0-7.7); Basophil# 0.05 X10^3/uL; Basophil% 0.3 % (0-1); Eosinophil# 0.01 X10^3/uL; Eosinophils% 0.1 % (0-5); Hematocrit 43.9 % (37-47); Hemoglobin 14.2 g/dL (12.0-15.0); Lymphocyte # 3.27 X10^3/ul (4.0); Lymphocyte % 18.3 % (19-41); Mean Corp Hgb Conc 32.3 g/dL (32-36); Mean Corpuscular Hgb 30.5 pg (27.0-32.0); Mean Corpuscular Volume 94.2 fL (81-99); Mean Platelet Vol. 10.1 fl (6.2-12.0); Monocyte# 1.13 X10^3/uL; Monocyte% 6.3 % (0-10); NRBC Flagged by Analyzer 0 % (0-5); Neutrophil # 13.29 X10^3/uL (2.7-7.7); Neutrophil % 74.5 % (47-70); Platelet Count 275 K/mm3 (150-450); RBC Distribution Width CV 14.3 % (11.6-14.6); RBC Distribution Width SD 47.8 fl (35.1-43.9); Red Blood Count 4.66 M/mm3 (4.2-5.4); White Blood Count 17.8 K/mm3 (4.4-11.0)
[2019-05-13 11:59] LABS: Vitamin D,25 Hydroxy 28.7 ng/mL
[2019-05-13 12:06] LABS: ALB/GLOB Ratio 1.1 RATIO (0.9-2.4); AST(SGOT) 15 U/L (15-37); Alanine Aminotransfer ALT/SGPT 23 U/L (13-56); Albumin, Serum 3.9 g/dL (3.2-5.0); Alkaline Phosphatase 68 U/L (45-117); Anion Gap 5 (5-15); BUN 15 mg/dL (7-18); BUN/Creat Ratio 16.7 RATIO (10-20); Calcium,Total 9.2 mg/dL (8.5-10.1); Chloride 107 mmol/L (98-107); EST Glomerular Filtration Rate 66 mL/min (>60); Est Glom Filt Rate - Afr Amer 79 mL/min (>60); Globulin 3.6 g/dL (2.2-4.2); Glucose 88 mg/dL (74-106); Protein, Total 7.5 g/dL (6.4-8.2); Sodium Level 140 mmol/L (136-145)
== END ==
PROVIDERS: PCP Family Medicine Geriatric Medicine; Visit Provider Family Medicine Geriatric Medicine
DX: E55.9 Vitamin D deficiency, unspecified (principal); R53.83 Other fatigue
CPT/HCPCS: 36415; 80053; 82306; 84443; 85025

== ENCOUNTER → 2019-09-03 07:52 | Outpatient (CLI) | payer MEDICARE, OTHER, SELFPAY ==
--- NOTE | 2019-09-03 09:25 | ECHOD_ITS ---
Reason For Study: SOB Procedure This was a 2D Doppler, Color Flow transthoracic echocardiogram. Exam performed in department. Left Ventricle Normal LV size. Moderate concentric left ventricular hypertrophy. The estimated ejection fraction is 65 %. Left ventricular systolic function is hyperdynamic. Mid cavitary dynamic gradient 16 mm/Hg. Stage 1 diastolic dysfunction. No regional wall motion abnormalities noted. Right Ventricle Normal RV size. Normal systolic function. Atria Normal left atrium. Normal right atrium. Mitral Valve Normal mitral valve. Tricuspid Valve Normal tricuspid valve. Aortic Valve Normal aortic valve. Pulmonic Valve Normal pulmonic valve. Great Vessels Normal aortic root. The pulmonary artery is normal size. Normal inferior vena cava. Pericardium/Pleural No pericardial effusion. MMode/2D Measurements & Calculations LVIDd: 4.9 cm IVSd: 1.3 cm Ao root diam: 3.3 cm LVIDs: 3.3 cm LVPWd: 1.3 cm RVDd: 2.5 cm FS: 32.2 % LAV(MOD-bp): 46.3 ml LA A4 area: 17.1 cm2 LA dimension(2D): 4.0 cm LAV(MOD-bp) Indexed: 23.2 ml/m2 LAV(MOD-sp2): 47.3 ml LAV(MOD-sp4): 43.5 ml Doppler Measurements & Calculations MV E max lamont: 68.9 cm/sec Lat Peak E' Lamont: 7.9 cm/sec Med Peak E' Lamont: 10.4 cm/sec MV A max lamont: 106.5 cm/sec E/E' lat: 8.8 E/E' med: 6.6 MV E/A: 0.65 Ao V2 max: 225.2 cm/sec PA V2 max: 92.4 cm/sec Ao max P.3 mmHg Ao V2 mean: 163.0 cm/sec Ao mean P.7 mmHg Ao V2 VTI: 39.5 cm Interpretation Summary Normal LV size. Moderate concentric left ventricular hypertrophy. The estimated ejection fraction is 65 %. Left ventricular systolic function is hyperdynamic. Mid cavitary dynamic gradient 16 mm/Hg. Stage 1 diastolic dysfunction. Ordering Physician: Adria Craig Referring Physician: Adria Craig Chi Performed By: Cici Virgen, GREG, RVT
--- NOTE | 2019-09-03 13:37 | PFTCOMP_ITS ---
COMPLETE PULMONARY FUNCTION TEST INTERPRETATION Brief HPI: Patient is a 73 year old Black female, currently under the care of Dr. Craig, who presents to [facility] for complete pulmonary function tests secondary to diagnosis of dyspnea. Respiratory therapist reports good effort and reproducible results. Interpretation: Forced expiration spirometry shows no large airways obstructive ventilatory defect with an FEV1 of 69% predicted. There is no significant bronchodilator response by strict ATS criteria. Spirograms are of good quality and plateau normally. The respiratory flow volume loop shows a normal pattern. Lung volumes by body plethysmography show a decreased total lung capacity at 4.57 L, 81% predicted. FRC and RV are elevated out of proportion. Lung volume measurements are consistent with air-trapping. Diffusion capacity by carbon monoxide is decreased at 63% predicted. The airway resistance is elevated. No previous pulmonary function tests were available for review. Impression: Mild restrictive ventilatory defect with a reduction diffusion capacity that is out of proportion to restriction.
== END ==
PROVIDERS: PCP Family Medicine Geriatric Medicine; Referring Provider Family Medicine Geriatric Medicine; Visit Provider Family Medicine Geriatric Medicine
DX: R06.89 Other abnormalities of breathing (principal); R06.00 Dyspnea, unspecified
CPT/HCPCS: 93306; 94060; 94726; 94729

== ENCOUNTER → 2019-09-08 15:10 | Outpatient (CLI) | payer MEDICARE, OTHER, SELFPAY ==
--- NOTE | 2019-09-08 15:19 | CT_ITS ---
STUDY: CT SCAN HIP RIGHT REASON FOR EXAM: Female, 73 years old. HIP PAIN, CHRONIC, OSTEOARTHRITIS SUSPECTED. RADIATION DOSAGE (If Supplied By Facility): CTDIvol = ( 19.96 ) mGy, DLP = ( 739.28 ) mGycm. Individualized dose optimization techniques were used for this CT.? TECHNIQUE: Multiple axial tomographic images were obtained without intravenous contrast menstruation. Axial and coronal reconstructive images were obtained as well. COMPARISON: None. FINDINGS: Mild degree of joint space narrowing and osteoarthritis of the hip joint. No acute fracture or dislocation is seen. Narrowing with sclerosis of the symphysis pubis. CT/Extremity Lower without Contra IMPRESSION: Degenerative changes of the hip joint. No fracture is seen. Electronically Signed: Arthur Taveras, at 15:46 EDT , Service support ,
== END ==
PROVIDERS: PCP Family Medicine Geriatric Medicine; Referring Provider Family Medicine Geriatric Medicine; Visit Provider Family Medicine Geriatric Medicine
DX: M25.559 Pain in unspecified hip (principal)
CPT/HCPCS: 73700

== ENCOUNTER → 2019-10-29 09:34 | Outpatient (CLI) | payer MEDICARE, OTHER, SELFPAY ==
--- NOTE | 2019-10-29 10:19 | BI_ITS ---
MAMMOGRAPHY - BILATERAL SCREENING REASON FOR EXAM: Female, 73 years old. Routine annual screening examination. PERTINENT HISTORY: Non-contributory. TECHNIQUE: Digital bilateral breast inez (3D mammographic acquisition) in the CC and MLO projections. 2-D mediolateral oblique (MLO) and craniocaudad (CC) views of both breasts were obtained. CAD: Full Field Digital Mammography with Computer Added Detection was performed. COMPARISON: Comparison is made with prior study dated 05/28/2017 and 04/20/2015. FINDINGS: Breast Composition: The breasts are almost entirely fatty. There are no dominant masses or suspicious calcifications. Stable calcified nodule in the superior retroareolar region of the right breast. Stable small benign-appearing bilateral axillary lymph nodes. No other significant abnormalities are identified. There has been no significant change since the prior study. BI/SCREEN MAMM (CAD) W/INEZ BILAT IMPRESSION: Stable bilateral screening mammogram. Yearly follow-up mammogram recommended. (A) ASSESSMENT CATEGORY: BIRADS Category 2: Benign. A letter regarding these results will be sent to the patient by the facility within 30 days. Approximately 10% of breast cancers are not detected by mammography. A normal mammogram should not delay biopsy of a clinically suspicious abnormality. [id number] Electronically Signed: Arthur Taveras, at 12:15 EDT , Service support ,
== END ==
PROVIDERS: PCP Family Medicine Geriatric Medicine; Referring Provider Family Medicine Geriatric Medicine; Visit Provider Family Medicine Geriatric Medicine
DX: Z12.31 Encounter for screening mammogram for malignant neoplasm of breast (principal)
CPT/HCPCS: 77063; 77067

== ENCOUNTER 2019-11-24 14:04 | Observation (INO) | payer MEDICARE, OTHER, SELFPAY ==
--- NOTE | 2019-11-09 20:54 | PCM.HP.BLA ---
History and Physical History and Physical Patient Name: Gali Latif : 1945 From: ALESSANDRO OLIVEIRA NP DATE OF SURGERY: 11/24/2019 SCHEDULED PROCEDURE: Direct anterior right total hip arthroplasty HISTORY OF PRESENT ILLNESS: Preoperative history and physical exam was performed on November 09, 2019. This is a 74-year-old female who has been having ongoing right hip pain for years. She describes the pain as intermittent, aching and sore. Her pain is 4 on a scale of 10 at best and 9 on a scale of 10 with activity. The pain is made worse with stairs, sitting for prolonged periods of time and walking. She does report start up pain. The pain is located in the right groin, buttock and low back. The pain does wake her at night. The patient reports an inability to perform activities of daily living including shopping and housework. She also reports inability to perform leisure activities such as gardening and playing with her grandchildren. Previous conservative treatment measures attempted include rest, ice, heat and elevation with minimal to no relief. The patient has participated in formal physical therapy and home exercises. She has attempted multiple medications including [place], Vicodin, tramadol, gabapentin, Cymbalta, Flexeril and Voltaren with minimal to no relief. The patient did receive a cortisone injection into the right hip providing approximately 3 days of relief. She is currently under the care of of Dr. Flores for pain management. She does have a pain contract with Dr. Flores. She has a medical history pertinent for thyroid disease, hypercholesterolemia, stage I diastolic bowel function, rheumatoid arthritis and occasional dyspnea. Surgical clearance will be obtained from her primary care provider Dr. Craig. A clearance was sent to Dr. Flores regarding postoperative pain management. The patient denies chest pain, fevers, chills, shortness of breath, difficulty breathing or recent infections. After failing conservative measures and discussing treatment options with Dr. Adam Bell the patient does wish to proceed with a direct anterior right total hip arthroplasty. REVIEW OF SYSTEMS: ROS: Const: Denies anorexia, change in appetite, fever, hard of hearing, vision problems and weight change. CV: Denies chest pain, heart murmur, irregular heartbeat and peripheral vascular disease. Resp: Denies asthma, cough, pneumonia, sleep apnea, SOB, tuberculosis and wheezing. GI: Denies constipation, diarrhea, difficulty swallowing, heartburn, nausea, bloody stools and vomiting. : Urinary: denies incontinence. Musculo: Denies leg swelling, limp, trouble walking and weakness. Skin: Reports history of shingles, but denies Raynaud's and tattoo. Neuro: Denies ambulatory dysfunction, dizziness, numbness/tingling and tremor. Psych: Denies anxiety, depression, insomnia, mental illness and stress. Carlos/Lymph: Denies anemia, bleeding/bruising tendency and past transfusion. Reviewed, no changes. PAST MEDICAL HISTORY: Advance Care Plan: Other Directive, POA Effective Date: 12/17/2017 Other Directive, LIVING WILL Effective Date: 12/17/2017 PMH: Medical Problems: Thyroid Disease, Hypercholesterolemia Stage 1 - DIASTOLIC MALFUNCTION Rheumatoid Arthritis, Dyspnea (Occasional) Accidents: Fracture - 2001 5th MT fx- LT 2018 -STRESS FX LT FOOT. Surgical Hx: Subtotal Thyroidectomy - 1980 Hysterectomy - 1984 Laminectomy - 1997 Pinning MT FX Carpal Tunnel - LEFT CTR,2005 Arthroscopy - 2005 Lt Shoulder Tenovaginotomy - 2005 Right thumb Gallbladder - (1974) LT Knee Arthroscopy - (09/14/2008) OLGA @ [facility] Disectomy Level 2 - (02/09/2010) CAR @ [facility] LT TKR - (12/13/2011) MSK @ [facility] Cervical Fusion - (2016) DR MCKENZIE- C5-6 C6-7 Anesthesia Complications: Vomiting, Nausea Assistive Devices: Glasses - CONTACTS Reviewed and updated. SOCIAL HISTORY: SH: Marital: .Occupation: Retired.Work Status: Retired.Hand Dominance: Right-handed. Personal Habits: Smoking: Patient has never smoked.Cigarette Use: Never.Alcohol: Occasionally.Drug Use: Denies Use.Enjoy Exercising: Exercises 1-3 X/Week. Reviewed, no changes. VITALS: Ht: 65 Wt: 195lb Wt k.452 BMI: 32.4 BP: 122/60 Pulse: 85 Resp: 16 T: 97.4 T: 36.3C ALLERGIES: No Known Drug Allergy MEDICATIONS: Synthroid 137 mcg 1 PO qday, Trazodone 150 mg 1/2 tab po qHS, Methotrexate 2.5 mg 4 tabs by mouth TWICE DAILY, Folic Acid 1 mg 2 tabs PO daily, Leucovorin Calcium 25 mg weekly, Duloxetine HCL 60 mg 1 by mouth BID, [place] 5-325 mg 1-2 by mouth every 6 hour as needed pain PRE-OP EXAM: General appearance:NORMAL Other: Eyes: Conjunctivae and lids: NORMAL Pupils: ERR Ears, Nose, Mouth, and Throat: NORMAL Other: Inspection of lips, teeth and gums: NORMAL Other: Respiratory: Assessment of respiratory effort: NORMAL Other: Auscultation of lungs: clear to auscultation no wheezes, rhonchi or rales. Cardiovascular: Auscultation of heart: regular rate and rhythm, no murmurs, gallops or rubs. Gastrointestinal: Exam of abdomen: soft, nontender, nondistended bowel sounds present. Neurological: see below Psychiatric: Orientation to time, place and person: NORMAL Other: Mood and affect: NORMAL Other: PHYSICAL EXAMINATION: The patient ambulates with an antalgic gait. There is tenderness with palpation over the greater trochanter. Right hip flexion to 95. Internal rotation to 15. External rotation to 30. Pain is re-created with passive internal rotation of the hip. Negative straight leg raise. Sensation intact to light touch. IMAGING STUDIES: 3 views of right hip including weightbearing AP pelvis and AP hip and crossfire lateral obtained on November 09, 2019 reviewed reveals right hip with severe osteoarthritis with joint space narrowing, subchondral sclerosis and osteophyte formation. No acute fractures or dislocations. No lytic or blastic lesions. IMPRESSION: 1. Right hip osteoarthritis 2. Thyroid disease 3. Hypercholesterolemia 4. Stage I diastolic bowel function 5. Rheumatoid arthritis 6. Dyspnea PLAN: Dr. Adam Bell did discuss and review with the patient all treatment options including surgical versus nonsurgical. The patient does wish to proceed with the above-stated procedure. Potential risk, benefits and complications of the procedure were discussed in detail including but not limited to , infection, nerve and blood vessel damage, persistent pain, numbness, tingling, paresthesia, blood clot, pulmonary embolism and requirement for possible further surgery. The patient expressed full understanding and has no further questions for the doctor. The patient does agree to proceed with the above-stated procedure and has signed the surgery consent form. Discussed with the patient the risks associated with the COVID-19 virus including the risk of exposure while at the hospital. The patient was reassured local hospitals have low infection rates and taken all necessary precautions to limit patient exposure to COVID-19. Limiting the patient's time in the hospital may decrease their exposure to COVID-19. The patient was notified that we will need to comply with any screening or testing the hospital wishes to perform and that surgery may be delayed for any positive test results. This dictation was created using voice recognition software. Phonetic and/or grammatical errors may exist. ___ I have re-examined the patient. There are no clinical changes since date of exam. ___ See progress notes for changes. ___ Dictated on admission Date: Time: Signature:
[2019-11-11 11:59] LABS: Absolute Lymphocyte Count 2.45 X10^3/uL (0.83-4.51); Absolute Neutrophil Count 5.5 X10^3/uL (2.0-7.7); Basophil# 0.04 X10^3/uL; Basophil% 0.5 % (0-1); Eosinophil# 0.09 X10^3/uL; Hematocrit 42.2 % (37-47); Hemoglobin 13.5 g/dL (12.0-15.0); Lymphocyte # 2.45 X10^3/ul (4.0); Lymphocyte % 27.6 % (19-41); Mean Corpuscular Hgb 30.2 pg (27.0-32.0); Mean Corpuscular Volume 94.4 fL (81-99); Mean Platelet Vol. 9.4 fl (6.2-12.0); Monocyte# 0.74 X10^3/uL; Monocyte% 8.3 % (0-10); NRBC Flagged by Analyzer 0 % (0-5); Neutrophil # 5.53 X10^3/uL (2.7-7.7); Neutrophil % 62.4 % (47-70); Platelet Count 274 K/mm3 (150-450); RBC Distribution Width CV 14.2 % (11.6-14.6); RBC Distribution Width SD 48.7 fl (35.1-43.9); Red Blood Count 4.47 M/mm3 (4.2-5.4); White Blood Count 8.9 K/mm3 (4.4-11.0)
[2019-11-11 12:53] LABS: AST(SGOT) 19 U/L (15-37); Alanine Aminotransfer ALT/SGPT 28 U/L (13-56); Albumin, Serum 3.6 g/dL (3.2-5.0); Alkaline Phosphatase 63 U/L (45-117); Anion Gap 5 (5-15); BUN 13 mg/dL (7-18); BUN/Creat Ratio 14.9 RATIO (10-20); Calcium,Total 8.9 mg/dL (8.5-10.1); Chloride 107 mmol/L (98-107); Creatinine, Serum 0.87 mg/dL (0.55-1.02); EST Glomerular Filtration Rate 68 mL/min (>60); Est Glom Filt Rate - Afr Amer 82 mL/min (>60); Globulin 3.5 g/dL (2.2-4.2); Glucose 87 mg/dL (74-106); Potassium 4.1 mmol/L (3.5-5.1); Protein, Total 7.1 g/dL (6.4-8.2); Sodium Level 140 mmol/L (136-145)
[2019-11-11 13:09] LABS: Thyroid Stim Hormone (TSH) 0.51 uIU/mL (0.358-3.74)
--- NOTE | 2019-11-17 09:11 | EKG12_ITS ---
Test Reason : PRE OP Blood Pressure : / mmHG Vent. Rate : 075 BPM Atrial Rate : 075 BPM P-R Int : 152 ms QRS Dur : 078 ms QT Int : 396 ms P-R-T Axes : 033 027 052 degrees QTc Int : 442 ms Sinus rhythm with Premature atrial complexes Nonspecific T wave abnormality Abnormal ECG Confirmed by ESSENCE MARTINO, MERT ([id number]), publishing editor IRVING ORNELAS ([id number]) on 11/25/2019 8:34:34 AM Referred By: Adam Bell Confirmed By:JERI LOWRY MD
[2019-11-24] VITALS (11 sets, daily range): BP systolic 114–159; BP diastolic 62–87; PULSE 63–97; RESP 16–18; TEMP 36.1–36.8; O2SAT 95–100; BMI 29.6
[2019-11-24 10:45] LABS: Bedside Glucose 214 mg/dL (70-110)
[2019-11-24] MEDS: Acetaminophen 500 MG Tablet 1000 MG PO ×2 (10:57→22:12)
[2019-11-24] MEDS: Gabapentin 600 MG Tablet PO (10:58)
[2019-11-24] MEDS: Insulin Lispro 100 UNIT/ML INSULN.PEN SC (10:58)
[2019-11-24] MEDS: Celecoxib 200 MG Capsule 400 MG PO (10:58)
[2019-11-24] MEDS: Lactated Ringers 1,000 ML 100 ML IV (11:28)
[2019-11-24] MEDS: Cefazolin 2 GM in 0.9% Normal Saline 100 ML IV (12:09)
--- NOTE | 2019-11-24 13:05 | RAD_ITS ---
STUDY: X-RAY - PELVIS AND RIGHT HIP REASON FOR EXAM: Female, 74 years old. INTRA-OPERATIVE RIGHT HIP -- 2 FLUORO IMAGES, 14.8 FLUORO SEC, 1.59mGy TECHNIQUE: 1 views of the pelvis and hip. COMPARISON: None. FINDINGS: Intraoperative imaging provided for right hip replacement. There is good alignment. RAD/Hip 1 view with Pelvis IMPRESSION: Status post right hip replacement. There is good alignment. Electronically Signed: Arthur Taveras, at 15:07 EDT , Service support ,
--- NOTE | 2019-11-24 13:48 | PCM.OPRPT ---
Report of Operation Date of Procedure: 11/24/19 Pre-Operative Diagnosis: Right hip primary osteoarthritis Post-Operative Diagnosis: Right hip primary osteoarthritis Surgery/Procedure Performed:: Right direct anterior total replacement Description of Surgical Findings:: Stable hip. Patient did have posterior cortical breach while broaching the femur. Prophylactic cable was placed. Broaches were redirected. Calcar was intact. program aide group work: Rob Groves Type of Anesthesia:: Spinal Anesthesiologist: Teto Conner Special Medications: 2 g Ancef, 1 g TXA at incision, 1 g TXA closure, 10 mg Decadron, joint cocktail (5 mg Duramorph, 30 mL of 0.5% Ropivicaine, 1000 units of epinephrine, 30 mg of Toradol) Estimated Blood Loss (mL): 200 Fluids Replaced: 1 L crystalloid Description of Procedure: Components used: 1. Accolade 2 [place] femoral stem size 6 127? 2. Karon trident 2 acetabular shell size 50 mm 3. Karon X3 polyethylene d 4. [place] Biolox delta 36mm, 0mm femoral head Brief history operative indications: 74 yo F who failed conservative measures for their hip osteoarthritis. X-rays were consistent with osteoarthritis including joint space narrowing, osteophyte formation and subchondral cysts. Total hip replacement was discussed with the patient with risks and benefits including but not limited to blood loss, DVTs, PEs, neurovascular damage, dislocation, general risks of anesthesia including loss of life. Patient demonstrated an understanding medical clearance is obtained the patient was consented for surgery. Procedure: On the date of procedure the patient's R hip was marked in the preoperative area. Patient was then taken back to the operating room where anesthesia assumed control of the C-spine and airway and administered anesthetic. Patient was transferred to the operating table and placed in the supine position. The hips were placed at the break of the bed and a sacral bump was placed. The R lower extremity was then prepped out in a sterile fashion using chlorhexidine while the surgeon scrubbed. The PA was vital in the positioning of the patient. Upon reentering the room the R lower extremity was draped in the standard orthopedic fashion and the incision was marked. A timeout was called and everyone agreed upon the side, the site, the procedure be performed, antibody given, and patient's identity. At this time incision was made through skin, subcutaneous tissue, and fat down to fascia. The fascia was then incised and the TFL was retracted laterally. A retractor was placed on the lateral border of the femoral neck. Attention was directed to the inferior portion of the approach and all crossing vessels were identified and appropriately coagulated. A retractor was then placed on the medial portion of the femoral neck. The anterior capsule was then cleared of all soft tissue and then H shaped capsulotomy was made. The retractors were then placed inside the capsule. The femoral neck was identified and a cleanup cut was made. At this time a power corkscrew was used to remove the femoral head. Attention was then turned toward the acetabulum where the soft tissues were appropriately retracted and the acetabulum was sequentially reamed to 50 mm. A 50 mm cup was then selected and impacted into place. Acetabular liner was impacted into place and locking mechanism was verified. The position of the acetabular cup was then verified under live fluoroscopy. Attention was then turned to the femur. Soft tissue releases on the medial and lateral femoral neck were appropriately done, the leg was externally rotated and lateralized. A Griffin retractor was placed medially and proximally to the greater trochanter this allowed appropriate visualization and exposure of the femoral canal. Rongeour was then used to remove excess lateral bone. A canal finder and entry broach were used to open the proximal canal. Once we verified we were down the femoral canal we subsequently broached up to a size 5 femur. The appropriate neck was placed in the previously selected head was trialed with a 0 mm neck. Traction was pulled and the hip was reduced with internal rotation. Once it was appropriately reduced and stability was checked. There was minimal shuck, equal leg lengths and appropriate stability with hyperextension and external rotation as well as with 90? flexion and internal rotation. Fluoroscopy was then also used to verify the position of the components and leg lengths using the contralateral side for comparison. Upon fluoroscopic imaging we noticed that the patient had a posterior cortical breach distal to the lesser trochanter with the size 5 femur. She was also in varus position due to this. The hip was dislocated and the proximal femur was again exposed. The size 5 stem was removed. At this time we used a rattail rasp to redirect down the canal. With direct visualization we again re-broached this time to a size 6. Throughout this time we carefully examined the calcar which remained intact. After we got to the size 6 we again re-trialed again with a 0 head. Once we are happy with the leg lengths and the position of the stem checked both in AP and lateral views on my fluoroscopy with no evidence of calcar fracturing we dislocated the hip. We moved remove the trial neck. With the broach still in place we placed a 2.0 cable and tightened it. The tensioner was left on. The broach was removed. The final stem and head were opened. Once the final stem was placed final tightening on the tensioner was completed and the grommet was crimped. Cable was cut. The wound was copiously irrigated out with normal saline. The acetabulum was checked for any residual debris. With the final components placed and impacted, traction and internal rotation were again used to reduce the hip. After adequate reduction the hip remained stable with appropriate leg lengths. The final components were once again checked with live fluoroscopy and were found to be satisfactory. The wound was then copiously irrigated with normal saline once more, and hemostasis was obtained. Closure was then done using #1 Vicryl runner to close the fascia. A 2-0 vicryl interuppted sutures were used to close the subcutaneous skin. A 3-0 Monocryl and Steri-Strips were used for final skin closure. A Silverlon dressing was placed. Patient was awakened by anesthesia and transferred to the [facility]. Patient was then transferred to the PACU for recovery. Postoperative plan: Patient will get 24 hours postop antibiotics. Patient will get in-house physical therapy and will be 50% weightbearing for 2 weeks. Patient will follow up in office in 2 weeks for a wound check and x-rays. Aspirin 81 mg twice daily. During the course of the procedure the physician commercial artist lettering (PE) played a vital role. Their intimate knowledge of my steps in the procedure aided in safe and expedient completion of the procedure. The PE played a vital rolls in positioning particularly in obtaining the appropriate positioning of the sacral bump. The PE was also vital in the retraction of soft tissues during the exposure and especially the femoral work as this is a vital part of the procedure to prevent complications and fractures. The PE was also vital and protecting soft tissues during times of bony cuts and reaming. He also played a vital role in closure with my direct supervision. The PE was also important during reduction and dislocation of the joint and trials intraoperatively. - Complications Posterior cortical breach of the femur. - Admit VTE Documentation VTE Present on Admission: No VTE Mechan Device Prophylaxis: SCD's, Thigh High FIDELINA Hose VTE Pharm Prophylaxis ordered?: Yes
--- NOTE | 2019-11-24 14:40 | RAD_ITS ---
STUDY: X-RAY - PELVIS AND RIGHT HIP REASON FOR EXAM: Female, 74 years old. POST OP RIGHT HIP TECHNIQUE: 2 views of the pelvis and hip. COMPARISON: Comparison is made with prior study dated 05/05/2019. FINDINGS: The patient is status post right hip replacement. There is good alignment. Postoperative soft tissue changes. RAD/Hip Min 2 Views (Portable) IMPRESSION: Status post right total hip replacement. There is normal alignment. Postoperative soft tissue changes. Electronically Signed: Arthur Taveras, at 15:06 EDT , Service support ,
[2019-11-24] MEDS: Lactated Ringers 1,000 ML 125 ML IV ×2 (14:41→17:32)
[2019-11-24 15:41] LABS: Bedside Glucose 111 mg/dL (70-110)
[2019-11-24] MEDS: Morphine 2 MG/ML Syringe IV (16:39)
[2019-11-24] MEDS: Aspirin 81 MG TAB.CHEW PO (17:33)
[2019-11-24] MEDS: oxyCODONE 5 MG Tablet PO ×2 (18:17→22:21)
[2019-11-24] MEDS: Ketorolac 15 MG/ML Vial IV (20:17)
[2019-11-24] MEDS: Cefazolin 1 GM/50 ML BAG IV (20:17)
[2019-11-24] MEDS: 0.9% NaCl Peripheral Flush Adult/Peds IV (20:17)
[2019-11-24] MEDS: traZODone 50 MG Tablet 150 MG PO (22:13)
[2019-11-24] MEDS: DULoxetine Hcl 60 MG Capsule PO (22:13)
[2019-11-24] MEDS: Senna/Docusate Sodium 1 Tablet 2 TABLET PO (22:13)
[2019-11-25 00:05] VITALS: BP 118/56; PULSE 72; RESP 16; TEMP 36.7; O2SAT 95
[2019-11-25] MEDS: Cefazolin 1 GM/50 ML BAG IV (03:22)
[2019-11-25 03:23] VITALS: BP 130/69; PULSE 74; RESP 16; TEMP 36.6; O2SAT 93
[2019-11-25] MEDS: Acetaminophen 500 MG Tablet 1000 MG PO ×2 (06:00→13:30)
[2019-11-25] MEDS: Levothyroxine 112 MCG Tablet PO (06:00)
[2019-11-25] MEDS: 0.9% NaCl Peripheral Flush Adult/Peds IV (06:00)
[2019-11-25 06:20] LABS: Hematocrit 34.7 % (37-47); Hemoglobin 11.1 g/dL (12.0-15.0); Mean Corpuscular Hgb 30.7 pg (27.0-32.0); Mean Corpuscular Volume 95.9 fL (81-99); Mean Platelet Vol. 10.1 fl (6.2-12.0); Platelet Count 204 K/mm3 (150-450); RBC Distribution Width CV 13.3 % (11.6-14.6); RBC Distribution Width SD 47.4 fl (35.1-43.9); Red Blood Count 3.62 M/mm3 (4.2-5.4); White Blood Count 14.7 K/mm3 (4.4-11.0)
[2019-11-25 06:45] LABS: Anion Gap 3 (5-15); BUN 10 mg/dL (7-18); BUN/Creat Ratio 12.3 RATIO (10-20); Calcium,Total 7.8 mg/dL (8.5-10.1); Chloride 107 mmol/L (98-107); Creatinine, Serum 0.81 mg/dL (0.55-1.02); EST Glomerular Filtration Rate 74 mL/min (>60); Est Glom Filt Rate - Afr Amer 89 mL/min (>60); Estimated Creatinine Clearance 63.33 ml/min; Glucose 137 mg/dL (74-106); Potassium 4.2 mmol/L (3.5-5.1); Sodium Level 137 mmol/L (136-145)
[2019-11-25 07:17] VITALS: BP 113/62; PULSE 65; RESP 16; TEMP 36.8; O2SAT 95
[2019-11-25] MEDS: Aspirin 81 MG TAB.CHEW PO (07:38)
[2019-11-25] MEDS: Folic Acid 1 MG Tablet 2 MG PO (07:38)
[2019-11-25] MEDS: Ensure Surgery 237 ML LIQUID PO ×2 (07:38→11:33)
--- NOTE | 2019-11-25 08:43 | PCM.PN.ORT ---
Subjective: The patient was sitting in bedside chair upon examination. Patient denies any chest pain, shortness of breath, dizziness, lightheadedness, nausea or vomiting, or calf pain. Pain is controlled on medications. No adverse overnight events. 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 Patient is a chronic pain medication patient in which she sees Dr Flores. Patient states she has tolerated narcotics with her antidepressant with no complications in the past. Objective: Vital signs stable and afebrile. Patient is able to plantarflex and dorsiflex actively. Sensation is intact to light touch to saphenous, sural, superficial and deep peroneal, and tibial distribution. Dressing is clean dry and intact. Negative Homans bilaterally, negative signs and symptoms of DVT. - Physical Exam Vitals/I&O's: Vital Signs Temp Pulse Resp BP Pulse Ox 98.2 F 65 16 113/62 95 11/25/19 07:17 11/25/19 07:17 11/25/19 07:17 11/25/19 07:17 11/25/19 07:17 Oxygen Flow Rate (L/min) 6 Oxygen Delivery Method Room Air Weight: 88.5 kg Body Mass Index (BMI) 29.6 Finger Stick Blood Glucose 111 Intake and Output for Last 24 Hours 11/23/19 11/24/19 11/25/19 23:59 23:59 23:59 Intake Total 2195.92 / 2545.92 1556.25 / 1556.25 Balance 2195.92 / 2545.92 1556.25 / 1556.25 General: Alert, Oriented x3, Cooperative, No apparent distress Laboratory Results 11/24/19 10:30: POC Glucose 214 H 11/24/19 15:36: POC Glucose 111 H 11/25/19 05:42: WBC 14.7 H, RBC 3.62 L, Hgb 11.1 L, Hct 34.7 L, MCV 95.9, MCH 30.7, MCHC 32.0, RDW Std Deviation 47.4 H, RDW Coeff of Alicia 13.3, Plt Count 204, MPV 10.1 11/25/19 05:42: Sodium 137, Potassium 4.2, Chloride 107, Carbon Dioxide 27.0, Anion Gap 3 L, BUN 10, Creatinine 0.81, Estim Creat Clear Calc 63.33, Est GFR (MDRD) Af Amer 89, Est GFR (MDRD) Non-Af 74, BUN/Creatinine Ratio 12.3, Glucose 137 H, Calcium 7.8 L Current Medications Acetaminophen (Tylenol) 1,000 mg PO Q8 [facility] Last Admin: 11/25/19 06:00 Dose: 1,000 mg Documented by: Aspirin (Aspirin, Baby) 81 mg PO BIDCM [facility] Last Admin: 11/25/19 07:38 Dose: 81 mg Documented by: Duloxetine HCl (Cymbalta) 60 mg PO BID [facility] Last Admin: 11/24/19 22:13 Dose: 60 mg Documented by: Enteral Nutritional Formula (Ensure Surgery) 237 ml PO TIDCM [facility] Last Admin: 11/25/19 07:38 Dose: 237 ml Documented by: Famotidine (Pepcid) 20 mg PO DAILY [facility] Last Admin: 11/24/19 17:08 Dose: Not Given Documented by: Folic Acid (Folic Acid) 2 mg PO DAILY@0800 [facility] Last Admin: 11/25/19 07:38 Dose: 2 mg Documented by: Sodium Chloride () 250 mls @ 15 mls/hr IV .[id number] PRN PRN Reason: Saline Flush Sodium Chloride () 250 mls @ 15 mls/hr IV .[id number] PRN PRN Reason: Additional IVPB Infusion Insulin Human Lispro (Humalog Kwikpen (Bkc)) 1 - 6 unit SC Q4H PRN PRN; Protocol PRN Reason: BG>/= 180, SEE PROTOCOL Last Admin: 11/24/19 10:58 Dose: 1 units Documented by: Ketorolac Tromethamine (Toradol (Bkc)) 15 mg IV Q6H PRN PRN PRN Reason: Pain Score 1-5/10 Stop: 11/26/19 07:21 Last Admin: 11/24/19 20:17 Dose: 15 mg Documented by: Levothyroxine Sodium (Synthroid) 112 mcg PO DAILY@0600 [facility] Last Admin: 11/25/19 06:00 Dose: 112 mcg Documented by: Meloxicam (Mobic) 7.5 mg PO BID [facility] Morphine Sulfate () 2 - 4 mg IV Q2H PRN PRN PRN Reason: Pain Score 4-10/10 Last Admin: 11/24/19 16:39 Dose: 2 mg Documented by: Morphine Sulfate () 2 - 4 mg IV Q2H PRN PRN PRN Reason: Pain Score 4-10/10 Ondansetron HCl (Zofran) 4 mg IV Q8H PRN PRN PRN Reason: NAUSEA Oxycodone HCl (Oxyir) 5 - 10 mg PO Q4H PRN PRN PRN Reason: Pain Score 4-10/10 Last Admin: 11/24/19 22:21 Dose: 10 mg Documented by: Promethazine HCl (Phenergan) 12.5 mg IM Q6H PRN PRN; Protocol PRN Reason: NAUSEA/VOMITING Senna/Docusate Sodium (Senokot-S, Jannet-Colace) 2 tablet PO BID [facility] Last Admin: 11/24/19 22:13 Dose: 2 tablet Documented by: Sodium Chloride () 5 - 15 ml IV UD PRN PRN Reason: SALINE FLUSH Last Admin: 11/25/19 06:00 Dose: 10 ml Documented by: Sodium Chloride () 10 - 40 ml IV UD PRN PRN Reason: SALINE FLUSH Trazodone HCl (Desyrel) 150 mg PO QHS [facility] Last Admin: 11/24/19 22:13 Dose: 150 mg Documented by: Medical Necessity - Tobacco Use Smoking Status: Former smoker Tobacco Use: Non-smoker Assessment/Plan 1. S/P direct anterior right total hip arthroplasty POD #1 2. Continue Pain Medications: Tylenol, meloxicam, oxycodone 3. DVT Prophylaxis: Take 81 mg aspirin twice daily for 4 weeks postoperatively for DVT prophylaxis 4. 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 Plan will be for partial weightbearing for 2 weeks postoperatively. 5. H & H: 11.1/34.7, asymptomatic. Secondary to acute blood loss from surgery 6. Reactive leukocytosis: Currently 14.7, afebrile. Patient did receive Decadron intraoperatively 7. Encouraged Incentive Spirometry 8. Disposition: Plan will be for discharge home today as long as patient tolerates physical therapy and pain is well controlled. Patient is a chronic pain medication patient and we discussed that she should not mix the [place] she was given by her pain management physician. We will manage the narcotics for the first 6 weeks as long as pain is controlled. We did discuss serotonin syndrome with her current medication duloxetine. If she is experiencing any of these symptoms she will stop the narcotic and contact her office. She has tolerated the narcotics in the past with this medication. Patient will follow-up per postop instructions. Prescriptions will be E scribed to [facility] in [facility]. I have reviewed the [place] Automated Rx Reporting System ([place]ARRS) report for this patient for refill pattern and other prescriber involvement as part of the appropriate surveillance for the provision of acute and chronic controlled medications. The report was requested and reviewed on the date of this entry and was considered in the prescribing process.
--- NOTE | 2019-11-25 08:51 | DCINST_ITS ---
Discharge Activity: May Not Drive - while taking narcotic pain medications. May shower in (days): 1 - Dressing must be intact to skin. Turn dressing away from water Ice area for (Minutes): 20 - Every 1-2 hours while awake Weight Bearing Status: Partial weight bearing - 50% partial weightbearing right lower extremity with use of walker for 2 weeks postoperatively Elevate: Operative Extremity Additional Activity Instructions:: Wear elastic stockings for 2 weeks. DO NOT use alcohol with narcotic pain medication. DO NOT make important decisions while taking narcotic medication. If you have problems with taking your medication (rash, itching, nausea, etc.) call the office at once. Call your doctor if your incision/area has: Increased Pain/ Swelling, Increased Redness, Foul Smelling Discharge Call your doctor if you observe: Fever of 101 or Higher Remove Dressing in (days):: 4 - okay to remove on November 29, 2019 Additional Instructions: Follow orthopedic postop instructions Allergies/Adverse Reactions: Allergies No Known Allergies Allergy (Verified 11/24/19 10:21) Medications to take at Discharge Duloxetine HCl 60 mg PO BID 11/10/19 Folic Acid 2 mg PO DAILY 11/10/19 Levothyroxine [Synthroid] 112 mcg PO DAILY 11/10/19 Methotrexate 40 mg PO Q7D 11/10/19 Trazodone ER [Oleptro Er] 150 mg PO QHS 11/10/19 Acetaminophen [Tylenol] 1,000 mg PO Q8 #100 tab 11/25/19 Aspirin [Aspirin, Baby] 81 mg PO BIDCM tab.chew 11/25/19 Famotidine [Pepcid] 20 mg PO DAILY #30 tab 11/25/19 Meloxicam [Mobic] 7.5 mg PO BID #60 tab 11/25/19 Oxycodone [Oxyir] 5 - 10 mg PO Q4H PRN PRN 5 Days #60 tablet 11/25/19 Senna/Docusate Sodium [Senokot-S] 2 tab PO BID #10 tab 11/25/19 The following prescriptions were given: Meloxicam [Mobic] 7.5 mg PO BID #60 tab Transmission Status: Pending to [id number] Oxycodone [Oxyir] 5 - 10 mg PO Q4H PRN PRN 5 Days #60 tablet PRN Reason: Pain Score 4-1010 Transmission Status: Sent to [id number] Famotidine [Pepcid] 20 mg PO DAILY #30 tab Transmission Status: Pending to [id number] Senna/Docusate Sodium [Senokot-S] 2 tab PO BID #10 tab Transmission Status: Pending to [id number] Acetaminophen [Tylenol] 1,000 mg PO Q8 #100 tab Transmission Status: Pending to [id number] Primary Care Physician: Adria Craig Chi, MD [Primary Care Provider] - Test Results: Test results from this visit will be discussed in further detail at your follow- up appointment, if applicable. Please Follow Up With: Physical Therapy When: 11/29/19 Please Follow Up With: Jena Kim NP-C When: 12/08/19 @ 10:45 am
[2019-11-25] MEDS: Senna/Docusate Sodium 1 Tablet 2 TABLET PO (09:33)
[2019-11-25] MEDS: Famotidine 20 MG Tablet PO (09:33)
[2019-11-25] MEDS: DULoxetine Hcl 60 MG Capsule PO (09:33)
[2019-11-25] MEDS: oxyCODONE 5 MG Tablet PO (09:36)
--- NOTE | 2019-11-25 10:42 | CASEMGMT ---
RN CM Assessment Note Introduced role of CM to patient. Demographics, PCP verified. Diagnosis: RTHR PCP: Dr. Craig Specialists: Dr. Bell Insurance: [facility] Preferred [facility]acy[facility] Prescription Benefit: yes. Call to [facility] to verify oxyir will be filled. It was rejected due to the patient also having an [place] prescription. Updated the pharmacist that the patient had surgery and oxyir was prescribed by her surgeon. Per pharmacist, pt will need to be instructed not to take her [place] on dc, and only the Oxyir. RN JOVON explained this to the patient. 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 She is aware and will follow instructions for Oxyir only during surgical recovery. RN JOVON reviewed if she has difficulty @ home to speak with surgeon and Dr. Flores. -Script for Oxyir will be processed per the pharmacist. LNOK: , Cristian Latif Living Arrangements: Lives in two story home, see PT/OT notes for details Tranportation: can drive. DME: Has equipment listed by PT for home. No new needs. Patient DC Goals: Home on dc DC Plan: Home. CM available for discharge planning coordination. Contact CM for any concerns/needs that may arise. Brennen ZARCO RN ACM
--- NOTE | 2019-11-25 12:37 | PHA.DC.MC ---
Pharmacy Service has performed discharge medication reconciliation and counseling for this patient. 1. ACETAMINOPHEN 1000MG PO Q8H 2. MELOXICAM 7.5MG PO BID 3. ASPIRIN 81MG PO BIDCM 4. OXYCODONE 5-10MG PO Q4H PRN PAIN 4-12/03 5. FAMOTIDINE 20MG PO DAILY 6. SENNA/DOCUSATE 2T PO BID UNTIL FIRST BOWEL MOVEMENT, THEN PRN The patient's discharge medication list was reviewed for discrepancies and discrepancies were resolved. Home Medications Duloxetine HCl 60 mg PO BID 11/10/19 Folic Acid 2 mg PO DAILY 11/10/19 Levothyroxine [Synthroid] 112 mcg PO DAILY 11/10/19 Methotrexate 40 mg PO Q7D 11/10/19 Trazodone ER [Oleptro Er] 150 mg PO QHS 11/10/19 Acetaminophen [Tylenol] 1,000 mg PO Q8 #100 tab 11/25/19 Aspirin [Aspirin, Baby] 81 mg PO BIDCM tab.chew 11/25/19 Famotidine [Pepcid] 20 mg PO DAILY #30 tab 11/25/19 Meloxicam [Mobic] 7.5 mg PO BID #60 tab 11/25/19 Oxycodone [Oxyir] 5 - 10 mg PO Q4H PRN PRN 5 Days #60 tab 11/25/19 Senna/Docusate Sodium [Senokot-S] 2 tab PO BID #10 tab 11/25/19 The patient was counseled on the following discharge medications and changes in medications for homegoing were reviewed. The Reason for Use, instructions for use, and potential side effects were reviewed for all new medications. The patient's questions regarding all of their medications were answered. The patient was able to verbally demonstrate an understanding of their discharge medications.
== END 2019-11-25 13:45 | disposition home or self-care (01) ==
LOC: SDC 14:05 → MS3 14:05
PROVIDERS: Anesthesiology; Admitting Provider Specialist; PCP Family Medicine Geriatric Medicine; Referring Provider Specialist; Visit Provider Specialist
PROC: (CPT 27284; principal; 2019-11-24 11:35)
DX: M16.11 Unilateral primary osteoarthritis, right hip (principal); F32.9 Major depressive disorder, single episode, unspecified; M06.9 Rheumatoid arthritis, unspecified; E07.9 Disorder of thyroid, unspecified; E78.00 Pure hypercholesterolemia, unspecified; Z79.82 Long term (current) use of aspirin; Z79.899 Other long term (current) drug therapy; Z11.59 Encounter for screening for other viral diseases; Z87.891 Personal history of nicotine dependence; I49.1 Atrial premature depolarization
CPT/HCPCS: 01214; 27130; 36415; 73501; 73502; 76000; 80048; 80053; 82306; 82962; 83735; 84443; 85025; 85027; 87077; 87081; 87635; 93005; 96361; 96365; 96366; 96375; 97116; 97162; 97166; 97530; 97535; 99218; 99251; C1776; C9803; J7120; A4216; G0378; G0379; G0463; U0003

== ENCOUNTER → 2020-05-01 14:48 | Outpatient (CLI) | payer MEDICARE, OTHER, SELFPAY ==
[2019-11-24 16:20] VITALS: BMI 29.6
[2020-05-01 18:44] LABS: Creatinine, Serum 0.79 mg/dL (0.55-1.02); EST Glomerular Filtration Rate 76 mL/min (>60); Est Glom Filt Rate - Afr Amer 92 mL/min (>60)
== END ==
PROVIDERS: PCP Family Medicine Geriatric Medicine; Referring Provider Physician Assistant Surgical; Visit Provider Physician Assistant Surgical
DX: M48.07 Spinal stenosis, lumbosacral region (principal); N28.9 Disorder of kidney and ureter, unspecified
CPT/HCPCS: 36415; 82565

== ENCOUNTER → 2020-05-18 11:57 | Outpatient (CLI) | payer MEDICARE, OTHER, SELFPAY ==
[2019-11-24 16:20] VITALS: BMI 29.6
[2020-05-18 12:20] LABS: Absolute Lymphocyte Count 3.13 X10^3/uL (0.83-4.51); Absolute Neutrophil Count 7.7 X10^3/uL (2.0-7.7); Basophil# 0.04 X10^3/uL; Basophil% 0.3 % (0-1); Eosinophil# 0.08 X10^3/uL; Eosinophils% 0.7 % (0-5); Hematocrit 43.3 % (37-47); Hemoglobin 13.9 g/dL (12.0-15.0); Lymphocyte # 3.13 X10^3/ul (4.0); Lymphocyte % 26.6 % (19-41); Mean Corp Hgb Conc 32.1 g/dL (32-36); Mean Corpuscular Hgb 30.4 pg (27.0-32.0); Mean Corpuscular Volume 94.7 fL (81-99); Mean Platelet Vol. 9.8 fl (6.2-12.0); Monocyte# 0.77 X10^3/uL; Monocyte% 6.5 % (0-10); NRBC Flagged by Analyzer 0 % (0-5); Neutrophil # 7.69 X10^3/uL (2.7-7.7); Neutrophil % 65.5 % (47-70); Platelet Count 301 K/mm3 (150-450); RBC Distribution Width CV 14.9 % (11.6-14.6); RBC Distribution Width SD 50.9 fl (35.1-43.9); Red Blood Count 4.57 M/mm3 (4.2-5.4); White Blood Count 11.8 K/mm3 (4.4-11.0)
[2020-05-18 12:50] LABS: AST(SGOT) 13 U/L (15-37); Alanine Aminotransfer ALT/SGPT 23 U/L (13-56); Albumin, Serum 3.7 g/dL (3.2-5.0); Alkaline Phosphatase 62 U/L (45-117); Anion Gap 4 (5-15); BUN 14 mg/dL (7-18); BUN/Creat Ratio 16.2 RATIO (10-20); Chloride 107 mmol/L (98-107); Creatinine, Serum 0.87 mg/dL (0.55-1.02); EST Glomerular Filtration Rate 68 mL/min (>60); Est Glom Filt Rate - Afr Amer 83 mL/min (>60); Globulin 3.6 g/dL (2.2-4.2); Glucose 113 mg/dL (74-106); Potassium 3.9 mmol/L (3.5-5.1); Protein, Total 7.3 g/dL (6.4-8.2); Sodium Level 138 mmol/L (136-145); Thyroid Stim Hormone (TSH) 0.39 uIU/mL (0.358-3.74)
[2020-05-18 16:25] LABS: Vitamin D,25 Hydroxy 17.2 ng/mL
== END ==
PROVIDERS: PCP Family Medicine Geriatric Medicine; Visit Provider Family Medicine Geriatric Medicine
DX: R53.83 Other fatigue (principal); E55.9 Vitamin D deficiency, unspecified
CPT/HCPCS: 36415; 80053; 82306; 84443; 85025

== ENCOUNTER 2020-06-07 10:05 | Day surgery (SDC) | payer MEDICARE, OTHER, SELFPAY ==
[2019-11-24 16:20] VITALS: BMI 29.6
--- NOTE | 2020-06-02 12:58 | HP.PCM_ITS ---
History and Physical History and Physical [facility] Patient Name: Gali Latif : 1945 From: HEDY LOCKE PA-C DATE OF SURGERY: 06/07/2020 SCHEDULED PROCEDURE: right hip cable removal and aspiration right hip HISTORY OF PRESENT ILLNESS: Preoperative history and physical exam was performed on June 02, 2020. This is a 74-year-old female is a patient of Dr. Adam Bell and had a previous right total hip direct anterior approach on November 24, 2019. Patient did have a posterior cortical breach which did require prophylactic cable. Patient was doing overall with regards to her right hip. She was however having some continued tightness and palpable band in the right thigh. Having pain over the groin down the medial thigh. Patient has also been treated by Dr. Chandler for lumbar spine pain. She did have a recent MRI of the right hip which did reveal partial tearing of the iliopsoas distally which appears to coincide where the cable is located. There is also a fusion of the joint. She did undergo infectious lab work which was within normal limits. She denies recent fevers, chills, recent infections. After failing conservative measures and discussing treatment options of Dr. Adam Bell, the patient does wish to proceed with a cable removal right hip and aspiration right hip. Patient is currently followed right pain management Dr. Flores. She currently takes [place] 5?3 25 mg 1 tablet 3 times daily. patient has medical history pertinent for rheumatoid arthritis and Thyroid disease. REVIEW OF SYSTEMS: ROS: Const: Denies anorexia, change in appetite, fever, hard of hearing, vision problems and weight change. CV: Denies chest pain, heart murmur, irregular heartbeat and peripheral vascular disease. Resp: Denies asthma, cough, pneumonia, sleep apnea, SOB, tuberculosis and wheezing. GI: Denies constipation, diarrhea, difficulty swallowing, heartburn, nausea, bloody stools and vomiting. : Urinary: denies incontinence. Musculo: Reports trouble walking, but denies leg swelling, limp and weakness. Skin: Reports history of shingles, but denies Raynaud's and tattoo. Neuro: Denies ambulatory dysfunction, dizziness, numbness/tingling and tremor. Psych: Denies anxiety, depression, insomnia, mental illness and stress. Carlos/Lymph: Denies anemia, bleeding/bruising tendency and past transfusion. Reviewed and updated. PAST MEDICAL HISTORY: Advance Care Plan: Other Directive, POA Effective Date: 12/17/2017 Other Directive, LIVING WILL Effective Date: 12/17/2017 PMH: Medical Problems: Thyroid Disease, Hypercholesterolemia Stage 1 - DIASTOLIC MALFUNCTION Rheumatoid Arthritis, Dyspnea (Occasional) Accidents: Fracture - 2001 5th MT fx- LT 2018 -STRESS FX LT FOOT. Surgical Hx: Subtotal Thyroidectomy - 1980 Hysterectomy - 1984 Laminectomy - 1997 Pinning 5TH MT FX Carpal Tunnel - LEFT CTR,2006 Arthroscopy - 2005 Lt Shoulder Tenovaginotomy - 2005 Right thumb Gallbladder - (1974) LT Knee Arthroscopy - (09/14/2008) KNAPIC @ [facility] Disectomy Level 2 - (02/09/2010) CAR @ [facility] LT TKR - (12/13/2011) MSK @ [facility] Cervical Fusion - (2016) DR MCKENZIE- C5-6 C6-7 RT THR - (11/24/2019) SAW @ [facility] Anesthesia Complications: Vomiting, Nausea Assistive Devices: Glasses - CONTACTS Reviewed, no changes. SOCIAL HISTORY: SH: Marital: .Occupation: Retired.Work Status: Retired.Hand Dominance: Right- handed. Personal Habits: Tobacco Use: Patient has never smoked.Cigarette Use: Never.Alcohol: Occasionally.Drug Use: Denies Use.Enjoy Exercising: Exercises 1-3 X/Week. Reviewed, no changes. VITALS: Ht: 67 Wt: 197lb Wt k.359 BMI: 30.9 BP: 138/72 Pulse: 94 Resp: 14 T: 97.2 T: 36.2C Pain Level: 5 ALLERGIES: No Known Drug Allergy MEDICATIONS: Synthroid 137 mcg 1 PO qday, Methotrexate 2.5 mg 4 tabs by mouth TWICE DAILY, Folic Acid 1 mg 2 tabs PO daily, Leucovorin Calcium 25 mg weekly, Duloxetine HCL 60 mg 1 by mouth BID, Trazodone HCL 75mg @ night, [place] 5-325 mg 1-2 by mouth every 6 hour as needed pain PRE-OP EXAM: General appearance:NORMAL Other: Eyes: Conjunctivae and lids: NORMAL Pupils: ERR Ears, Nose, Mouth, and Throat: NORMAL Other: Inspection of lips, teeth and gums: NORMAL Other: Neck: Examination of neck: no masses noted. Respiratory: Assessment of respiratory effort: NORMAL Other: Auscultation of lungs: clear to auscultation no wheezes, rhonchi or rales. Cardiovascular: Auscultation of heart: regular rate and rhythm, positive systolic murmur. Exam of carotid arteries: NORMAL Other: Gastrointestinal: Exam of abdomen: soft, nontender, nondistended bowel sounds present. Lymphatic: Palpation of nodes in neck: NORMAL Other: Palpation of nodes in Axillae: NORMAL Other: Neurological: see below Psychiatric: Orientation to time, place and person: NORMAL Other: Mood and affect: NORMAL Other: PHYSICAL EXAMINATION: Patient does walk with a mild antalgic gait. Previous right hip incision is well-healed without erythema. Leg lengths are equal. No pain with hip range of motion. She does have tenderness to palpation along the adductor insertion. 4/5 hip flexion strength. Hip flexion also reproduces pain. Isolated iliopsoas creates increased pain at 3/5 strength. Sensation intact to light touch. IMAGING STUDIES: Recent MRI of the right hip reveals joint effusion with partial tearing of the iliopsoas distally which coincides with where the cable is located. Other findings include tendinopathy of the gluteus medius and hamstring insertion. Shows stable well aligned right total hip arthroplasty with a prophylactic cable placed proximally above the lesser trochanter. IMPRESSION: 1. Right hip pain with previous total hip arthroplasty and iliopsoas partial tearing and joint effusion 2. Hypercholesterolemia 3. Thyroid disease 4. Rheumatoid arthritis 5. Fibromyalgia 6. Depression PLAN: Dr. Adam Bell did discuss and review with the patient all treatment options including surgical versus nonsurgical options. Patient does wish to proceed with the above-stated procedure. Potential risks, benefits, and complications of the procedure were discussed in detail including but not limited to , infection, nerve and blood vessel damage, persistent pain, numbness, tingling, paresthesias, blood clot, pulmonary embolism, and requirement for possible further surgery. The patient expressed full understanding and has no further questions for the doctor. Patient does agree to proceed with the above-stated procedure and has signed the surgery consent form. We will also obtain clearance from the pain management doctor to manage postoperative pain control. We discussed the current risks associated with COVID 19. This does include the risk of exposure while in the hospital. Patient was reassured local hospitals have low infection rates and are taking all necessary precautions to avoid exposure to patients. In addition, we discussed strategies that can be used to help limit exposure including those that limit the patient's time in the hospital. Also using strategies to limit the patient's need for continued inpatient services after being discharged from the hospital. Patient was notified that we will need to comply with any screening or testing the hospital wishes to perform or that surgery may be delayed for any positive results. This dictation was created using voice recognition software. Phonetic and/or grammatical errors may exist. ___ I have re-examined the patient. There are no clinical changes since date of exam. ___ See progress notes for changes. ___ Dictated on admission Date: Time: Signature:
[2020-06-07] VITALS (9 sets, daily range): BP systolic 108–133; BP diastolic 34–73; PULSE 70–99; RESP 16; TEMP 36.1–36.5; O2SAT 91–100; BMI 31.5
[2020-06-07] MEDS: Ketorolac 15 MG/ML Vial IV (07:12)
[2020-06-07] MEDS: Lactated Ringers 1,000 ML 120 ML IV (10:47)
[2020-06-07] MEDS: Cefazolin 2 GM in 0.9% Normal Saline 100 ML IV (12:06)
--- NOTE | 2020-06-07 12:40 | RAD_ITS ---
STUDY: X-RAY - PELVIS AND RIGHT HIP REASON FOR EXAM: Cable removal right hip, joint aspiration. TECHNIQUE: A single intraoperative image of the right hip. COMPARISON: Radiographs 11/24/2019. FINDINGS: There is a right hip arthroplasty with interval removal of the cable adjacent to the proximal femur. Electronically Signed: Ron Interiano MD at 11:14 EDT Tel , Service support , RAD/Hip 1 view with Pelvis
--- NOTE | 2020-06-07 13:17 | OP.PCM_ITS ---
Report of Operation Date of Procedure: 06/07/20 Pre-Operative Diagnosis: Painful hardware right hip. Effusion right total hip Post-Operative Diagnosis: Painful hardware right hip. Effusion right total hip Surgery/Procedure Performed:: Hardware removal right hip. Right hip aspiration Description of Surgical Findings:: 7 cc of straw-colored fluid were aspirated. Cable was completely removed from proximal femur. crusher operator: Shena Samuel Type of Anesthesia:: General Anesthesiologist: Jorje Boggs Special Medications: 2 g Ancef Specimen's removed: 7 cc of straw-colored fluid were aspirated from the joint Estimated Blood Loss (mL): 25 Fluids Replaced: 1000 mL crystalloid Description of Procedure: Patient had previous right total hip replacement last year. Cable was placed prophylactically around the proximal femur. Patient developed significant irritation of the iliopsoas presumably related to the cable. MRI was performed to verify pathology. Once this was completed we also noted there is an effusion of the joint. Her inflammatory lab work showed 1 normal and 1 mildly elevated result. Because of this we elected to aspirate the effusion at the time of the heart removal. However her symptoms mostly related to the iliopsoas tendon. Because of this we elected to not proceed with any further treatment for infection unless the aspiration was positive. On date of procedure patient's right hip was marked in the preoperative area. She was brought back to the operating room where anesthesia assumed control C- spine airway. Patient was transferred to the table in the supine position. Anesthesia assumed control C-spine and airway. Anesthesia remaining in control throughout the remainder of the procedure. Patient was anesthetized. All bony prominences were identified well-padded. Right hip incision was marked out over the previous incision. Right lower extremity was prepped in a sterile fashion. Surgeons then scrubbed. Upon reentering the room the right lower extremity was draped in a sterile orthopedic fashion and a timeout was called. Upon agreed upon the side, the site, the procedure to perform, patient's identity and antibiotics given. Incision was then taken down through skin. We then carefully used Bovie cautery to incise through the previous scar tissue. Until we can get down to the fascia. Once we are at the fascia we carefully incised to the fascia and identified the muscle. We carefully teased the muscle which was scarred down to the previous fascia. T FL was then retracted laterally. We then dissected down to the vastus lateralis where we could palpate the cable. Once we palpated the cable we bluntly dissected through the muscle. Bleeding was controlled throughout. Once we are able to visualize the cable a cutter was used to cut the cable. X-ray was used to verify complete removal of the cable. We then directed our attention to the joint where an 18-gauge spinal needle was used to aspirate the joint. 7 cc of straw-colored fluid were aspirated. No further t reatment was indicated at that time. Wound was copiously irrigated out with chlorhexidine solution followed by normal saline. Hemostasis was obtained. Fascia was closed with #1 Vicryl. Skin was closed using 2-0 Vicryl and 4-0 Monocryl. Sterile dressing was placed. Patient was then transferred back cured for recovery. Postop plan: Weightbearing as tolerated, activity as tolerated follow-up in the office in 2 weeks for wound check. Will follow aspiration results. - Complications No intraoperative complications - Admit VTE Documentation VTE Present on Admission: No VTE Mechan Device Prophylaxis: SCD's, Thigh High FIDELINA Hose VTE Pharm Prophylaxis ordered?: Yes
[2020-06-07 14:06] LABS: Synovial Fld Mononuclear WBC % 71.6 %; Synovial Fld Polynuclear WBC # 0.353 10^3/uL; Synovial Fld Polynuclear WBC % 28.4 %
[2020-06-07 14:15] LABS: AUTO B FLUID DILUENT BKGD CT WBC <0.1 RBC <0.01 (W<.1,R<.01); Viscosity / Synovial Fluid Sl. Viscous (HIGH)
[2020-06-07 14:17] LABS: Appearance /Synovial Fluid Sl hazy (CLEAR); Color / Synovial Fluid Yellow (Pale Yellow)
[2020-06-07 14:18] LABS: RBC /Synovial Fluid 0.016 10^6/uL (0)
[2020-06-07 14:19] LABS: Synovial Fld Mononuclear WBC # 0.888 10^3/ul
[2020-06-07 14:56] LABS: Neutrophil 43 % (0-25)
[2020-06-07 14:57] LABS: Body Fluid QC Type(s) BF2Q; Lymph 31 %; Monocyte /Synovial Fluid 24 %; Other Cell /Synovial Fluid 2 %
[2020-06-07] MEDS: HYDROcodone Bitartrate/Apap 5/325 Tablet PO (15:23)
[2020-06-08 11:22] LABS: Pathologist Comment Reviewed
== END 2020-06-07 16:23 | disposition home or self-care (01) ==
LOC: SDC 10:05 → AC 10:07
PROVIDERS: PCP Family Medicine Geriatric Medicine; Referring Provider Specialist; Visit Provider Specialist
PROC: (CPT 20610; principal; 2020-06-07 11:45)
DX: T84.84XA Pain due to internal orthopedic prosthetic devices, implants and grafts, initial encounter (principal); M25.451 Effusion, right hip; Y83.8 Other surgical procedures as the cause of abnormal reaction of the patient, or of later complication, without mention of misadventure at the time of the procedure; E78.00 Pure hypercholesterolemia, unspecified; E07.9 Disorder of thyroid, unspecified; F32.9 Major depressive disorder, single episode, unspecified; M06.9 Rheumatoid arthritis, unspecified; M79.7 Fibromyalgia; Z79.899 Other long term (current) drug therapy; Z96.641 Presence of right artificial hip joint
CPT/HCPCS: 20610; 20680; 73501; 76000; 87070; 87075; 87205; 89050; 89051; J7120; J2405

== ENCOUNTER 2020-07-31 12:00 | Outpatient (RCR) | payer MEDICARE, OTHER, SELFPAY ==
[2019-11-24 16:20] VITALS: BMI 29.6
[2020-06-07 10:32] VITALS: BMI 31.5
--- NOTE | 2020-06-28 14:15 | HP.PTEVAL_ITS ---
Patient's Visit Information RADHA HOOKS is a 74 year old F referred to Physical Therapy by Dr. Adam Bell MD with a diagnosis of R HIP EFFUSION, PAIN AND PSOAS TENDINITIS. S/P INTERNAL DEVICE.. Date of Evaluation: 06/28/20 Physical Therapist: Naomi Chen PT, Cert MDT - Visit Plan Frequency: 2-3x /Week Duration: 4-6 Weeks Plan: *START VERY SLOW PLEASE*. AQUATIC THERAPY FOR RIGHT LE PAIN RELIEF TAKING CHRONIC LOW BACK PAIN INTO CONSIDERATION. PATIENT DENIES HAVING ANY PHYSICIAN RESTRICTIONS. AVOID INCREASED PAIN WITH EX. POSTURE CORRECTION/STRENGTHENING, INSTRUCTION IN APPROPRIATE BODY MECHANICS AND ACTIVITY MODIFICATIONS. DLS STARTING WITH A NEUTRAL SPINE PROGRESSING ROM TOLERATED. CAITLIN LE ROM, STRETCHING AND STRENGTHENING. HEP INSTRUCTION. - Subjective Work/Leisure: RETIRED. GARDENING. Disability: NO. Present symptoms: CAITLIN LE NUMBESS TO THE THIGH ON THE L AND TO THE LOWER LEG ON THE RIGHT BUT NOT FEET AND TOES. RIGHT ANTERIOR/LATERAL AND POSTERIOR HIP AND THIGH PAIN WITH PAIN INTO THE GROIN. Present since: YEARS - CHRONIC. NEW GROIN AND THIGH PAIN SINCE THR 11/23/20. Pain Scale: WORST 6/10, LEAST 1-2/10. Currently: 3/10. Commenced as a result of: THR. Symptoms at onset: BUTTOCK. Worse: WALKING LONG DISTANCES, PROLONGED SITTING, HOUSEWORK, VACUUMING, GOING UP AND DOWN STAIRS. Better: HEATING PAD, MEDICATION, REST. Disturbed sleep: YES. Previous history/Previous treatment: PAIN MGMT, R THR, L HIP CABLE REMOVAL 06/07/20, MASSOTHERAPY, PHYSICAL THERAPY. CHIROPRACTOR WITH MOST RECENT VISIT BEING ABOUT 6 YEARS AGO. MICRODISCECTOMY ABOUT 30 YEARS AGO OR SO. Coughing/sneezing/straining: NEGATIVE. Gait: PATIENT STATES SHE FEELS LIKE SHE WALKS ABOUT THE SAME NOW SHE DID BEFORE THE THR BUT SHE STATES SHE WALKS SLOWER AND SOMETIMES USES A CANE. BETTER SINCE THE CABLE REMOVAL. FEELS THERE MIGHT BE SOME LEG LENGTH DIFFERENCE. Difficulty initiating urinatin: NO. Accidents: NO. Unexplained weight loss: NO. Imaging: X-RAY OF R HIP ABOUT 1-2 WKS AGO AT LAST ORTHO LAZARA'T. PMH: RA, FIBROMYALGIA, 2 NECK SURGERIES DEPRESSION. - Objective Sitting/Standing Posture: POOR. REDUCED LUMBAR LORDOSIS BUT NO RELEVEVANT LATERAL SHIFT. Active Correction of posture: INCREASES LBP AND DECREASES R THIGH PAIN BUT PATIENT ONLY PARTIALLY ABLE TO CORRECT. ILIAC CRESTS APPEAR SYMMETRICAL OR LEFT SLIGHTLY HIGHER. Other Observations: INDEP GAIT INTO PT WI THOUT LOB INTERMITTENTLY USING ST CANE. INDEP TRANSFER SIT TO STAND WITHOUT UE ASSIST. Motor deficit: RIGHT HIP 3-/5 AND PAIN LIMITED, KNEE EXT/FLEX 4/5 ANKLE DORSIFLEX 5/5. L HIP 4-/5, KNEE EXT/FLEX 5/5, ANKLE DORSI 5/5. Sensory deficit: CAITLIN LE LIGHT TOUCH SENSATION APPEARS GROSSLY INTACT AND SYMMETRICAL. ROM deficit: L HIP FLEX TO AT LEAST 90 DEGREES. MILD CAITLIN HS AND GASTROC SOLEUS TIGHTNESS. CAITLIN HIP FLEXOR TIGHTNESS. Reflexes: NT. Dural Signs: POSITIVE RIGHT LE. Lumbar mvmt loss: flex - MIN. ext - JAMES. R SG - JAMES. L SG - JAMES. Core strength: POOR. Palpation: TENDERNESS WITH PALPATION OF THE RIGHT LATERAL THIGH REGION AND PATIENT ALSO REPORTS TENDERNESS MEDIALLY, INTO THE GROIN AND ALONG THE RIGHT SIDE OF THE SACRUM. TREATMENT: NEUROMUSCULAR REEDUCATION - FOR MVMT AND POSTURE FOR SITTING, LYING AND STANDING ACTIVITIES. OTHER: PATIENT APPEARED RELUCTANT TO TRY PT AGAIN BASED ON PAST EXPERIENCES AND EXPRESSED FRUSTRATION WITH NOT HAVING A R HIP MRI PRIOR TO THR. SHE WAS TEARFUL ON AND OFF DURING THE EVALUATION. SHE WAS AGREEABLE TO TRIAL OF AQUATIC THERAPY AFTER DISCUSSION OF THE POSSIBLE BENEFITS. - Goals Goal 1:: DECREASE C/O R HIP/LE PAIN Goal Time Frame: 4-6 Weeks Goal 2:: IMPROVE SITTING, STANDING, WALKING, ADL, AND HOUSEWORK FUNCTION. Goal Time Frame: 4-6 Weeks Goal 3:: INSTRUCT IN PROPHYLAXIS Goal Time Frame: 4-6 Weeks - Anticipated Interventions Patient/Client Instruction: Educate patient on: Condition, Plan of Care, Risk Factors For the Purpose of:: To improve self management Therapeutic Exercise to Include: Strength training, Body mechanics, Postural training, Flexibilty training, Gait and locomotor training, Neuromotor development, In an aquatic setting, Dynamic Lumbar Stabilization For the Purpose of:: To decrease pain, To increase ROM, To improve muscle performance and motor function, To increase tolerance to activity/condition/position, To improve ability of physical actions for home/community/work/leisure, To improve gait and locomotor functions Thank you for the opportunity to evaluate your patient. For Medicare and Medicare HMO plans, please review the plan of care and approve it. It will need to be FAXED BACK to us at [phone] for Medicare purposes. For Medicare only, by signing this I certify the plan of care. Please let me know if there are questions or concerns regarding this plan of care. Physician Signature: Date:
--- NOTE | 2020-07-31 12:54 | HP.PTDCSUM ---
It has been my pleasure to treat RADHA HOOKS referred by Dr. Adam Bell MD, with the diagnosis of R HIP EFFUSION, PAIN AND PSOAS TENDINITIS. S/P INTERNAL DEVICE. for a total of 7 visit(s). Discharge Date: Please see the following information for a summary of their discharge status. Subjective: PATIENT REPORTS THE POOL DIDN'T GO BADLY BUT SHE REPORTS NEW LEFT SHLD PAIN. STATES THAT OVER-ALL THOUGH SHE JUST DIDN'T SEEM TO BE TOLERATING IT WELL. STATES DR. BELL TOLD HER IT WAS OK TO STOP PT BECAUSE SHE IS EXHAUSTED FROM HAVING SO MANY DOCTOR LAZARA'TS BETWEEN HER AND HER . STATES SHE WANTS TO TRY A WALKING PROGRAM BUT SHE WANTS INSTRUCTION FROM PT BEFORE SHE STARTS. STATES DR. BELL ORDERED AN INJECTION IN THE ISHIAL TUBEROSITY AREA AND SHE HAS AN LAZARA'T WITH DR. KWOK 08/16/20. PATIENT REPORTS SHE HAS HAD HER L SHLD INJECTED BY DR. CHAN IN THE PAST. STATES SHE HAS BEEN RESTING AND ICING HER SHLD AND IT IS IMPROVING. THIS PT RECOMMENDS PHYSICIAN FOLLOW UP NEEDED AND PATIENT IS AGREEABLE. RLE Pain Intensity (Out of 10): 4 Lumbar Spine Pain Intensity (Out of 10): 6 % Improvement: 0 Objective/Function: PATIENT WAS SEEN TODAY FOR RE-ASSESSMENT OF PROGRESS TOWARD THE SET PT GOALS AND THE NEED FOR FURTHER PHYSICAL THERAPY VS READINESS FOR DISCHARGE. PATIENT IS NOT IMPROVING AND IS OVER-WHELMED BY ALL OF THE LAZARA'TS SHE AND HER HAVE. SHE IS APPROPRIATE FOR DISCHARGE TO HOME WALKING PROGRAM. HOME WALKING PROGRAM INSTRUCTIONS GIVEN TODAY. UPON EXAM TODAY THERE ARE NO SIGNIFICANT CHANGES SINCE INITIAL EVAL. Goal 1:: DECREASE C/O R HIP/LE PAIN Goal Progress: Not Progressing Goal 2:: IMPROVE SITTING, STANDING, WALKING, ADL, AND HOUSEWORK FUNCTION. Goal Progress: Not Progressing Goal 3:: INSTRUCT IN PROPHYLAXIS Goal Progress: Not Progressing Plan: D/C TO HOME WALKING PROGRAM. PATIENT AGREEABLE AND SHE REPORTS DR. BELL IS TOO. If there are questions or concerns regarding this patient's physical therapy, please feel free to call me at [phone]. Thank you for the referral of this patient. Sincerely, Naomi Chen, PT, Cert MDT
== END 2020-07-31 19:00 | disposition home or self-care (01) ==
LOC: PT 12:00
PROVIDERS: PCP Family Medicine Geriatric Medicine; Referring Provider Specialist; Visit Provider Specialist
DX: T84.84XD Pain due to internal orthopedic prosthetic devices, implants and grafts, subsequent encounter (principal); M25.451 Effusion, right hip; M76.11 Psoas tendinitis, right hip
CPT/HCPCS: 97112; 97113; 97162; 97164

== ENCOUNTER → 2020-10-13 14:19 | Outpatient (CLI) | payer MEDICARE, OTHER, SELFPAY ==
[2020-10-13 17:33] LABS: Absolute Lymphocyte Count 2.91 X10^3/uL (0.83-4.51); Basophil# 0.05 X10^3/uL; Basophil% 0.6 % (0-1); Eosinophils% 1.2 % (0-5); Hematocrit 44.2 % (37-47); Hemoglobin 14.3 g/dL (12.0-15.0); Lymphocyte # 2.91 X10^3/ul (0.83-4.51); Lymphocyte % 33.8 % (19-41); Mean Corp Hgb Conc 32.4 g/dL (32-36); Mean Corpuscular Hgb 30.8 pg (27.0-32.0); Mean Corpuscular Volume 95.3 fL (81-99); Mean Platelet Vol. 10.6 fl (6.2-12.0); Monocyte# 0.53 X10^3/uL; Monocyte% 6.1 % (0-10); NRBC Flagged by Analyzer 0 % (0-5); Platelet Count 266 K/mm3 (150-450); RBC Distribution Width CV 14.4 % (11.6-14.6); RBC Distribution Width SD 50.2 fl (35.1-43.9); Red Blood Count 4.64 M/mm3 (4.2-5.4); White Blood Count 8.6 K/mm3 (4.4-11.0)
[2020-10-13 17:36] LABS: AST(SGOT) 18 U/L (15-37); Alanine Aminotransfer ALT/SGPT 32 U/L (13-56); Albumin, Serum 3.6 g/dL (3.2-5.0); Alkaline Phosphatase 67 U/L (45-117); Anion Gap 6 (5-15); BUN 14 mg/dL (7-18); BUN/Creat Ratio 16.6 RATIO (10-20); Calcium,Total 8.5 mg/dL (8.5-10.1); Chloride 108 mmol/L (98-107); Creatinine, Serum 0.84 mg/dL (0.55-1.02); EST Glomerular Filtration Rate 71 mL/min (>60); Est Glom Filt Rate - Afr Amer 85 mL/min (>60); Globulin 3.5 g/dL (2.2-4.2); Glucose 126 mg/dL (74-106); Potassium 3.7 mmol/L (3.5-5.1); Protein, Total 7.1 g/dL (6.4-8.2); Sodium Level 140 mmol/L (136-145)
== END ==
PROVIDERS: PCP Family Medicine Geriatric Medicine; Referring Provider Internal Medicine Rheumatology; Visit Provider Internal Medicine Rheumatology
DX: M06.4 Inflammatory polyarthropathy (principal); Z79.899 Other long term (current) drug therapy; M79.7 Fibromyalgia; M18.11 Unilateral primary osteoarthritis of first carpometacarpal joint, right hand; M35.00 Sjogren syndrome, unspecified; M47.892 Other spondylosis, cervical region; E89.0 Postprocedural hypothyroidism; F32.9 Major depressive disorder, single episode, unspecified
CPT/HCPCS: 36415; 80053; 85025

== ENCOUNTER → 2020-11-16 10:20 | Outpatient (CLI) | payer MEDICARE, OTHER, SELFPAY ==
[2020-11-16 12:17] LABS: Absolute Lymphocyte Count 2.86 X10^3/uL (0.83-4.51); Absolute Neutrophil Count 5.3 X10^3/uL (2.0-7.7); Basophil# 0.05 X10^3/uL; Basophil% 0.6 % (0-1); Eosinophil# 0.11 X10^3/uL; Eosinophils% 1.2 % (0-5); Hematocrit 43.3 % (37-47); Hemoglobin 14.2 g/dL (12.0-15.0); Lymphocyte # 2.86 X10^3/ul (0.83-4.51); Lymphocyte % 31.9 % (19-41); Mean Corp Hgb Conc 32.8 g/dL (32-36); Mean Corpuscular Hgb 30.9 pg (27.0-32.0); Mean Corpuscular Volume 94.3 fL (81-99); Mean Platelet Vol. 10.7 fl (6.2-12.0); Monocyte# 0.64 X10^3/uL; Monocyte% 7.1 % (0-10); NRBC Flagged by Analyzer 0 % (0-5); Neutrophil # 5.28 X10^3/uL (2.7-7.7); Neutrophil % 58.9 % (47-70); Platelet Count 283 K/mm3 (150-450); RBC Distribution Width CV 13.7 % (11.6-14.6); RBC Distribution Width SD 47.4 fl (35.1-43.9); Red Blood Count 4.59 M/mm3 (4.2-5.4)
[2020-11-16 12:51] LABS: Vitamin D,25 Hydroxy 29.8 ng/mL
[2020-11-16 12:58] LABS: ALB/GLOB Ratio 0.8 RATIO (0.9-2.4); AST(SGOT) 20 U/L (15-37); Alanine Aminotransfer ALT/SGPT 22 U/L (13-56); Albumin, Serum 3.3 g/dL (3.2-5.0); Alkaline Phosphatase 68 U/L (45-117); Anion Gap 5 (5-15); BUN 10 mg/dL (7-18); BUN/Creat Ratio 12.2 RATIO (10-20); Calcium,Total 8.9 mg/dL (8.5-10.1); Chloride 109 mmol/L (98-107); Creatinine, Serum 0.82 mg/dL (0.55-1.02); EST Glomerular Filtration Rate 73 mL/min (>60); Est Glom Filt Rate - Afr Amer 88 mL/min (>60); Glucose 108 mg/dL (74-106); Potassium 3.9 mmol/L (3.5-5.1); Protein, Total 7.3 g/dL (6.4-8.2); Sodium Level 141 mmol/L (136-145)
== END ==
PROVIDERS: PCP Family Medicine Geriatric Medicine; Visit Provider Family Medicine Geriatric Medicine
DX: E55.9 Vitamin D deficiency, unspecified (principal); R53.83 Other fatigue
CPT/HCPCS: 36415; 80053; 82306; 84443; 85025

== ENCOUNTER → 2021-01-02 10:23 | Outpatient (CLI) | payer MEDICARE, OTHER, SELFPAY ==
[2021-01-02 12:35] LABS: Absolute Lymphocyte Count 3.07 X10^3/uL (0.83-4.51); Absolute Neutrophil Count 5.4 X10^3/uL (2.0-7.7); Basophil# 0.04 X10^3/uL; Basophil% 0.4 % (0-1); Eosinophils% 1.1 % (0-5); Hematocrit 41.3 % (37-47); Hemoglobin 13.6 g/dL (12.0-15.0); Lymphocyte # 3.07 X10^3/ul (0.83-4.51); Lymphocyte % 32.8 % (19-41); Mean Corp Hgb Conc 32.9 g/dL (32-36); Mean Corpuscular Hgb 31.1 pg (27.0-32.0); Mean Corpuscular Volume 94.5 fL (81-99); Mean Platelet Vol. 10.8 fl (6.2-12.0); Monocyte# 0.74 X10^3/uL; Monocyte% 7.9 % (0-10); NRBC Flagged by Analyzer 0 % (0-5); Neutrophil # 5.38 X10^3/uL (2.7-7.7); Neutrophil % 57.5 % (47-70); Platelet Count 249 K/mm3 (150-450); RBC Distribution Width CV 13.2 % (11.6-14.6); RBC Distribution Width SD 45.9 fl (35.1-43.9); Red Blood Count 4.37 M/mm3 (4.2-5.4); White Blood Count 9.4 K/mm3 (4.4-11.0)
[2021-01-02 12:58] LABS: ALB/GLOB Ratio 0.8 RATIO (0.9-2.4); AST(SGOT) 15 U/L (15-37); Alanine Aminotransfer ALT/SGPT 24 U/L (13-56); Albumin, Serum 3.2 g/dL (3.2-5.0); Alkaline Phosphatase 62 U/L (45-117); Anion Gap 4 (5-15); BUN 12 mg/dL (7-18); Calcium,Total 9.3 mg/dL (8.5-10.1); Chloride 108 mmol/L (98-107); Creatinine, Serum 0.86 mg/dL (0.55-1.02); EST Glomerular Filtration Rate 69 mL/min (>60); Est Glom Filt Rate - Afr Amer 84 mL/min (>60); Globulin 3.8 g/dL (2.2-4.2); Glucose 109 mg/dL (74-106); Potassium 3.9 mmol/L (3.5-5.1); Sodium Level 139 mmol/L (136-145)
== END ==
PROVIDERS: PCP Family Medicine Geriatric Medicine; Referring Provider Internal Medicine Rheumatology; Visit Provider Internal Medicine Rheumatology
DX: M06.4 Inflammatory polyarthropathy (principal); Z79.899 Other long term (current) drug therapy; M79.7 Fibromyalgia; M18.11 Unilateral primary osteoarthritis of first carpometacarpal joint, right hand; M35.00 Sjogren syndrome, unspecified; M47.892 Other spondylosis, cervical region; E89.0 Postprocedural hypothyroidism; F32.9 Major depressive disorder, single episode, unspecified
CPT/HCPCS: 36415; 80053; 85025

== ENCOUNTER 2021-03-26 12:42 | Outpatient (CLI) | payer MEDICARE, OTHER, SELFPAY ==
[2021-03-26 15:24] LABS: Absolute Lymphocyte Count 3.04 X10^3/uL (0.83-4.51); Absolute Neutrophil Count 9.5 X10^3/uL (2.0-7.7); Basophil# 0.07 X10^3/uL; Basophil% 0.5 % (0-1); Eosinophil# 0.11 X10^3/uL; Eosinophils% 0.8 % (0-5); Hematocrit 41.5 % (37-47); Hemoglobin 13.8 g/dL (12.0-15.0); Lymphocyte # 3.04 X10^3/ul (0.83-4.51); Lymphocyte % 22.4 % (19-41); Mean Corp Hgb Conc 33.3 g/dL (32-36); Mean Corpuscular Hgb 30.9 pg (27.0-32.0); Mean Platelet Vol. 10.6 fl (6.2-12.0); Monocyte# 0.85 X10^3/uL; Monocyte% 6.3 % (0-10); NRBC Flagged by Analyzer 0 % (0-5); Neutrophil % 69.8 % (47-70); Platelet Count 293 K/mm3 (150-450); RBC Distribution Width CV 14.2 % (11.6-14.6); RBC Distribution Width SD 47.4 fl (35.1-43.9); Red Blood Count 4.46 M/mm3 (4.2-5.4); White Blood Count 13.6 K/mm3 (4.4-11.0)
[2021-03-26 15:52] LABS: ALB/GLOB Ratio 0.9 RATIO (0.9-2.4); AST(SGOT) 19 U/L (15-37); Alanine Aminotransfer ALT/SGPT 28 U/L (13-56); Albumin, Serum 3.6 g/dL (3.2-5.0); Alkaline Phosphatase 73 U/L (45-117); Anion Gap 7 (5-15); BUN 11 mg/dL (7-18); BUN/Creat Ratio 12.7 RATIO (10-20); Calcium,Total 8.9 mg/dL (8.5-10.1); Chloride 107 mmol/L (98-107); Creatinine, Serum 0.86 mg/dL (0.55-1.02); EST Glomerular Filtration Rate 68 mL/min (>60); Est Glom Filt Rate - Afr Amer 83 mL/min (>60); Globulin 3.8 g/dL (2.2-4.2); Glucose 148 mg/dL (74-106); Potassium 3.6 mmol/L (3.5-5.1); Protein, Total 7.4 g/dL (6.4-8.2); Sodium Level 139 mmol/L (136-145)
== END 2021-03-26 23:59 | disposition short-term general hospital (02) ==
LOC: MTLAB 12:44
PROVIDERS: PCP Family Medicine Geriatric Medicine; Referring Provider Internal Medicine Rheumatology; Visit Provider Internal Medicine Rheumatology
DX: M06.4 Inflammatory polyarthropathy (principal); M35.00 Sjogren syndrome, unspecified; M79.7 Fibromyalgia; M18.11 Unilateral primary osteoarthritis of first carpometacarpal joint, right hand; M15.9 Polyosteoarthritis, unspecified; M47.892 Other spondylosis, cervical region; E89.0 Postprocedural hypothyroidism; F32.89 Other specified depressive episodes; Z79.899 Other long term (current) drug therapy
CPT/HCPCS: 36415; 80053; 85025

== ENCOUNTER 2021-05-09 10:24 | Outpatient (CLI) | payer MEDICARE, OTHER, SELFPAY ==
--- NOTE | 2021-05-09 10:28 | RAD_ITS ---
INDICATION: BACK AND NECK PAIN -- AP AND LAT PER ORDER EXAMINATION/TECHNIQUE: X-RAY - XR Spine Cervical 2 or 3 Views COMPARISON: Cervical spine radiograph from 12/16/2018. FINDINGS: VERTEBRAE: Stable and intact appearance of cervical fusion hardware at the C5-C7 levels. Preserved vertebral body height. No fracture. No spondylolisthesis. Preservation of the normal cervical lordosis. Similar degree of facet arthropathy since 2019.. DISCS: Post fusion disc height loss at C5 C7. The remainder of the disc spaces are unremarkable. NECK SOFT TISSUES: No prevertebral soft tissue widening. LUNG APICES: Clear. RAD/Cerv Spine 2 or 3 Views IMPRESSION: Stable examination with no new or acute finding since 12/16/2018.. Electronically Signed: Abebe Georges, at 10:58 EDT ,
== END 2021-05-09 23:59 | disposition home or self-care (01) ==
LOC: MTRAD 10:28
PROVIDERS: PCP Family Medicine Geriatric Medicine; Referring Provider Anesthesiology Pain Medicine; Visit Provider Anesthesiology Pain Medicine
DX: M50.30 Other cervical disc degeneration, unspecified cervical region (principal)
CPT/HCPCS: 72040

== ENCOUNTER 2021-05-22 10:47 | Outpatient (CLI) | payer MEDICARE, OTHER, SELFPAY ==
[2021-05-22 12:13] LABS: Absolute Lymphocyte Count 4.02 X10^3/uL (0.83-4.51); Absolute Neutrophil Count 7.9 X10^3/uL (2.0-7.7); Basophil# 0.06 X10^3/uL; Basophil% 0.5 % (0-1); Eosinophil# 0.07 X10^3/uL; Eosinophils% 0.5 % (0-5); Hematocrit 45.5 % (37-47); Hemoglobin 15.8 g/dL (12.0-15.0); Lymphocyte # 4.02 X10^3/ul (0.83-4.51); Lymphocyte % 30.3 % (19-41); Mean Corp Hgb Conc 34.7 g/dL (32-36); Mean Corpuscular Hgb 32.2 pg (27.0-32.0); Mean Corpuscular Volume 92.7 fL (81-99); Mean Platelet Vol. 9.8 fl (6.2-12.0); Monocyte# 1.14 X10^3/uL; Monocyte% 8.6 % (0-10); NRBC Flagged by Analyzer 0 % (0-5); Neutrophil # 7.92 X10^3/uL (2.7-7.7); Neutrophil % 59.6 % (47-70); Platelet Count 333 K/mm3 (150-450); RBC Distribution Width CV 14.1 % (11.6-14.6); RBC Distribution Width SD 47.1 fl (35.1-43.9); Red Blood Count 4.91 M/mm3 (4.2-5.4); White Blood Count 13.3 K/mm3 (4.4-11.0)
[2021-05-22 12:35] LABS: Vitamin D,25 Hydroxy 31.1 ng/mL
[2021-05-22 13:08] LABS: AST(SGOT) 16 U/L (15-37); Alanine Aminotransfer ALT/SGPT 28 U/L (13-56); Albumin, Serum 3.8 g/dL (3.2-5.0); Alkaline Phosphatase 61 U/L (45-117); Anion Gap 6 (5-15); BUN 14 mg/dL (7-18); BUN/Creat Ratio 16.1 RATIO (10-20); Calcium,Total 9.3 mg/dL (8.5-10.1); Chloride 105 mmol/L (98-107); Creatinine, Serum 0.87 mg/dL (0.55-1.02); EST Glomerular Filtration Rate 68 mL/min (>60); Est Glom Filt Rate - Afr Amer 82 mL/min (>60); Glucose 86 mg/dL (74-106); Potassium 3.9 mmol/L (3.5-5.1); Protein, Total 7.8 g/dL (6.4-8.2); Sodium Level 137 mmol/L (136-145)
== END 2021-05-22 23:59 | disposition home or self-care (01) ==
PROVIDERS: PCP Family Medicine Geriatric Medicine; Visit Provider Family Medicine Geriatric Medicine
DX: E55.9 Vitamin D deficiency, unspecified (principal); R53.83 Other fatigue
CPT/HCPCS: 36415; 80053; 82306; 84443; 85025

== ENCOUNTER → 2021-07-10 | Outpatient (CLI) | payer MEDICARE, OTHER, SELFPAY ==
--- NOTE | 2021-07-10 12:06 | BI_ITS ---
MAMMOGRAPHY - BILATERAL SCREENING REASON FOR EXAM: Female, 75 years old. Routine annual screening examination. PERTINENT HISTORY: Non-contributory. TECHNIQUE: Digital bilateral breast inez (3D mammographic acquisition) in the CC and MLO projections. 2-D mediolateral oblique (MLO) and craniocaudad (CC) views of both breasts were obtained. CAD: Full Field Digital Mammography with Computer Added Detection was performed. COMPARISON: Comparison is made with prior study dated 10/29/2019 and 05/28/2017. FINDINGS: Breast Composition: The breasts are almost entirely fatty. There are no dominant masses or suspicious calcifications. Stable small benign-appearing bilateral axillary stable partially calcified nodule in the anterior upper retroareolar region of the right breast. No other significant abnormalities are identified. There has been no significant change since the prior study. BI/SCRN MAMM (CAD)W/INEZ BILAT IMPRESSION: Stable bilateral screening mammogram. Yearly follow-up mammogram recommended. (A) ASSESSMENT CATEGORY: BIRADS Category 2: Benign. A letter regarding these results will be sent to the patient by the facility within 30 days. Approximately 10% of breast cancers are not detected by mammography. A normal mammogram should not delay biopsy of a clinically suspicious abnormality. [id number] Electronically Signed: Arthur Taveras MD at 13:20 EDT ,
== END | disposition home or self-care (01) ==
LOC: OPBI 12:04
PROVIDERS: PCP Family Medicine Geriatric Medicine; Visit Provider Family Medicine Geriatric Medicine
DX: Z12.31 Encounter for screening mammogram for malignant neoplasm of breast (principal)
CPT/HCPCS: 77063; 77067

== ENCOUNTER → 2021-07-31 | Outpatient (CLI) | payer MEDICARE, OTHER, SELFPAY ==
[2021-07-31 12:42] LABS: Vista UDS pH Range 5
[2021-07-31 12:53] LABS: Amphetamine Urine VISTA NEGATIVE (<1000 ng/mL); Barbiturate Urine VISTA NEGATIVE (< 200 ng/mL); Benzodiazepine Urine VISTA NEGATIVE (< 200 ng/mL); Cocaine Urine VISTA NEGATIVE (< 300 ng/mL); Ecstacy Urine VISTA NEGATIVE (< 500 ng/mL); Methadone Urine VISTA NEGATIVE (< 300 ng/mL); PCP Urine VISTA NEGATIVE (< 25 ng/mL); THC Urine VISTA NEGATIVE (< 50 ng/mL)
== END | disposition home or self-care (01) ==
LOC: LAB 10:49
PROVIDERS: PCP Family Medicine Geriatric Medicine; Referring Provider Anesthesiology Pain Medicine; Visit Provider Anesthesiology Pain Medicine
DX: F11.20 Opioid dependence, uncomplicated (principal)
CPT/HCPCS: 80307

== ENCOUNTER 2021-10-02 10:30 | Emergency (ER) | payer MEDICARE, OTHER, SELFPAY ==
[2021-10-02 10:31] VITALS: BP 145/93; PULSE 71; RESP 18; TEMP 36.6; O2SAT 98; BMI 31.1
--- NOTE | 2021-10-02 11:05 | ED.RN ---
pt has right facial drop and right eye pain.
[2021-10-02 11:08] VITALS: BMI 31.1
[2021-10-02] MEDS: Morphine 4 MG/ML Syringe IV (11:34)
[2021-10-02] MEDS: predniSONE 20 MG Tablet 60 MG PO (11:34)
[2021-10-02 11:52] VITALS: BP 134/67; PULSE 61; RESP 18; O2SAT 97
--- NOTE | 2021-10-02 16:39 | EDS_ITS ---
HPI History of Present Illness Chief Complaint: Neuro S/Sx Informant: patient Onset/Context/Timing Onset: Days (4) Context: Gradual Onset Timing: Continuous Quality: Stabbing Location: Right ear and face Worsened by: Nothing Relieved by: Nothing Narrative Narrative: Patient presents with right ear pain and right facial weakness that has been constant for the last 4 days. Patient describes her pain as stabbing. Patient states the pain goes through her right ear and to the right side of her face. Patient states nothing makes it worse and nothing makes it better. Patient also admits to some facial weakness of her right forehead, right eye, and right side of her mouth. Patient denies any difficulty swallowing or talking. Patient denies any recent fevers or chills. Patient does admit to a mild headache. [facility] Medical History Back pain Hypothyroidism Home Medications duloxetine 60 mg capsule,delayed release 60 mg PO BID 11/10/19 [History Last Taken Unknown] folic acid 1 mg tablet 4 mg PO DAILY 11/10/19 [History Last Taken Unknown] levothyroxine 112 mcg tablet 112 mcg PO DAILY 11/10/19 [History Last Taken 11/24/19] methotrexate sodium 2.5 mg tablet 40 mg PO Q7D 11/10/19 [History Last Taken 05/24/20] trazodone 150 mg tablet 75 mg PO QHS 11/10/19 [History Last Taken Unknown] hydrocodone-acetaminophen 5-325mg 5mg-325mg 1 tablet PO Q8 PRN Pain 1-10 Or Fever 06/05/20 [History Last Taken Unknown] prednisone 20 mg tablet 60 mg PO DAILY #15 TABLETS 10/02/21 [Rx Last Taken Unknown] Allergy/AdvReac Type Severity Reaction Status Date / Time No Known Allergies Allergy Verified 10/02/21 10:33 Surgical History H/O thyroidectomy History of appendectomy History of hip replacement Total knee replacement status Social History Smoking Status: Former smoker ROS ROS ED Constitutional Constitutional ED: Denies chills or fever(s) Eyes Eyes: Denies blurry vision or change in vision ENT ENT ED: Reports ear pain right; Denies rhinorrhea or sore throat Cardiovascular Cardiovascular: Denies chest pain or palpitations Respiratory/Chest Respiratory/Chest: Denies cough or dyspnea Gastrointestinal Gastrointestinal: Denies nausea or vomiting Genitourinary Genitourinary ED: Denies dysuria or hematuria Musculoskeletal Musculoskeletal: Reports back pain and neck pain Integumentary Denies abscess or rash Neurologic Neurologic: Reports headache(s); Denies weakness Allergic/Immunologic Allergic/Immunologic ED: Denies mouth swelling or urticaria EXAM Physical Exam Const Vital Signs: 10/02/21 10:31 10/02/21 11:52 Temperature 97.8 F Temperature Source Temporal Pulse Rate 71 61 Respiratory Rate 18 18 Blood Pressure 145/93 H 134/67 H Blood Pressure Mean 110 Pulse Ox 98 97 Oxygen Delivery Method Room Air Positive well nourished and well developed General Appearance ED: well developed and NAD HEENT Reports TM's clear and moist mucous membranes Tympanic Membrane ED: Yes TM's clear bilateral Neck supple and no JVD Resp normal respiratory effort and clear to auscultation bilaterally Cardio regular rate, regular rhythm and no murmurs GI normal to inspection, nondistended, normoactive bowel sounds and non-tender Palpation: soft Extremity normal to inspection General Extremety ED: Negative for edema or tenderness General Extremity: Negative for edema Neuro oriented x3 and no sensory deficits noted Neuro Narrative: There is right facial weakness including the forehead, eyes, and mouth. There are no sensory deficits noted. Strength is 5/5 bilaterally in the upper and lower extremities. There is good range of motion. Sensorium / Orientation: alert Motor Exam: strength 5/5 throughout Psych mental status grossly normal Skin no rashes or lesions noted MDM MDM MDM Narrative Medical decision making narrative: Patient was given a dose of morphine for her pain here. Patient was given a dose of prednisone here. Patient was given a prescription for prednisone and [place]. Patient was instructed to continue using artificial tears. Patient was instructed to continue to tape her eye closed at night. Patient was instructed to follow-up with her primary care physician in 5 to 7 days for reevaluation. Patient understood and was agreeable with the plan. All questions were answered. Discharge Plan Triage Chief Complaint: Neuro S/Sx ED Provider: Jr Euceda Dx/Rx/DC Orders Clinical Impression: Facial paralysis/[place] palsy, Trigeminal neuralgia of right side of face Instructions: ED Joel's Palsy Prescriptions: New prednisone 20 mg tablet 60 mg PO DAILY Qty: 15 0RF No Action trazodone 150 MG tablet 75 mg PO QHS levothyroxine 112 MCG tablet 112 mcg PO DAILY duloxetine 60 MG capsule,delayed release(DR/EC) 60 mg PO BID methotrexate sodium 2.5 MG tablet 40 mg PO Q7D Label Comments: TAKES Q FRI., LAST DOSE 05/24/20 Rx Instructions: takes 40mg BID every Friday folic acid 1 MG tablet 4 mg PO DAILY hydrocodone-acetaminophen 1 TABLET tablet 1 tablet PO Q8 PRN (Reason: Pain 1-10 Or Fever) Primary Care Provider: Adria Craig Chi Referrals: Adria Craig Chi, MD [Primary Care Provider] - 5-7 Days Disposition Disposition: Home, Self Care Discharge Date/Time: 10/02/21 11:53
== END 2021-10-02 11:53 | disposition home or self-care (01) ==
LOC: ED 11:31
PROVIDERS: Emergency Provider Emergency Medicine; PCP Family Medicine Geriatric Medicine; Visit Provider Emergency Medicine
DX: G50.0 Trigeminal neuralgia (principal); Z87.891 Personal history of nicotine dependence; G51.0 Bell's palsy; E03.9 Hypothyroidism, unspecified
CPT/HCPCS: 96374; 99283; A4216

== ENCOUNTER 2021-10-07 08:47 | Emergency (ER) | payer MEDICARE, OTHER, SELFPAY ==
[2021-10-07 08:48] VITALS: BP 160/96; PULSE 86; RESP 16; TEMP 36; O2SAT 98; BMI 31.4
--- NOTE | 2021-10-07 09:15 | EDS_ITS ---
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 She was diagnosed with this on 10/02/2021. Patient presented with facial weakness on the right as well as ear pain. She was started on prednisone and [place] for home. She states she has an appointment to follow-up with Dr. Craig on Friday. She states that she developed ear pain in the right outer ear and had to take out her hearing aid because of the pain. She is concerned she might have an open lesion. [facility] Medical History Back pain Hypothyroidism Home Medications duloxetine 60 mg capsule,delayed release 60 mg PO BID 11/10/19 [History Last Taken Unknown] folic acid 1 mg tablet 4 mg PO DAILY 11/10/19 [History Last Taken Unknown] levothyroxine 112 mcg tablet 112 mcg PO DAILY 11/10/19 [History Last Taken 11/24/19] methotrexate sodium 2.5 mg tablet 40 mg PO Q7D 11/10/19 [History Last Taken 05/24/20] trazodone 150 mg tablet 75 mg PO QHS 11/10/19 [History Last Taken Unknown] hydrocodone-acetaminophen 5-325mg 5mg-325mg 1 tablet PO Q8 PRN Pain 1-10 Or Fever 06/05/20 [History Last Taken Unknown] prednisone 20 mg tablet 60 mg PO DAILY #15 TABLETS 10/02/21 [Rx Last Taken Unknown] acyclovir 800 mg tablet 800 mg PO 5X/DAY 10 days #50 tabs 10/07/21 [Rx Last Taken Unknown] Allergy/AdvReac Type Severity Reaction Status Date / Time No Known Allergies Allergy Verified 10/07/21 08:48 Surgical History H/O thyroidectomy History of appendectomy History of hip replacement Total knee replacement status Social History Smoking Status: Former smoker ROS ROS ED Constitutional Constitutional ED: Denies chills or fever(s) Eyes Eyes: Denies change in vision or diplopia ENT ENT ED: Reports ear pain right and other; Denies rhinorrhea or sore throat Cardiovascular Cardiovascular: Denies chest pain Respiratory/Chest Respiratory/Chest: Denies cough or dyspnea Genitourinary Genitourinary ED: Denies dysuria or hematuria Musculoskeletal Musculoskeletal: Denies arthralgias or back pain Integumentary Reports other Details: Redness right outer ear ; Denies abscess Neurologic Neurologic: Reports other Details: Right-sided facial weakness Psychiatric Psychiatric: Denies anxiety or depression Allergic/Immunologic Allergic/Immunologic ED: Denies mouth swelling or tongue swelling EXAM Physical Exam Const Vital Signs: 10/07/21 08:48 Temperature 96.8 F L Temperature Source Temporal Pulse Rate 86 Respiratory Rate 16 Blood Pressure 160/96 H Blood Pressure Mean 117 Pulse Ox 98 Oxygen Delivery Method Room Air Positive well nourished General Appearance ED: NAD; Negative for pallor HEENT Reports moist mucous membranes normocephalic; Negative for trauma Face and Sinus: flattened naso-labial fold Laterality: Right Nose: external nose normal and nares normal General Ear: No hearing grossly impaired External Ear: mastoids normal, no preauricular adenopathy and other Other Details: There is a very faint area of erythema at the intertragic notch on the right ear. There are no vesicles. No drainage. There is tender here. Tympanic Membrane ED: Yes TM's normal bilaterally Eyes PERRL and EOMs intact bilaterally Resp Auscultation: Negative for rales, rhonchi or wheezes Cardio regular rate and regular rhythm Neuro oriented x3 Neuro Narrative: Right-sided facial droop and weakness including the forehead, aspect of the lateral right eye, right nasolabial fold, right lower lip. 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 She is concerned she has an open lesion. When I look at this in the intratracheal notch there is a very faint area of erythema. It is no vesicles or lesions that I can tell. She does request an antiviral as she has not been on one. She states that she is concerned that she might be developing shingles reaction. She states her Shingrix is 4 years old, however she is on methotrexate and her reaction immunity might not be adequate. I do believe this is reasonable with her Joel's palsy although I do not see any obvious sign of shingles as of yet. She is on prednisone and [place] for home. She has follow-up with Dr. Craig as well. Patient states she also follows with Dr. Stephens if she needs to see him. Patient will be discharged home in stable condition. Impression: 1. Shingles 2. Joel's palsy Lab Data Attestation: I reviewed the patient's lab results. Discharge Plan Triage Chief Complaint: Ear Problem ED Provider: Greg Dickey Dx/Rx/DC Orders Instructions: ED Joel's Palsy Prescriptions: New acyclovir 800 mg tablet 800 mg PO 5X/DAY 10 Days Qty: 50 0RF No Action trazodone 150 MG tablet 75 mg PO QHS levothyroxine 112 MCG tablet 112 mcg PO DAILY duloxetine 60 MG capsule,delayed release(DR/EC) 60 mg PO BID methotrexate sodium 2.5 MG tablet 40 mg PO Q7D Label Comments: TAKES Q FRI., LAST DOSE 05/24/20 Rx Instructions: takes 40mg BID every Friday folic acid 1 MG tablet 4 mg PO DAILY hydrocodone-acetaminophen 1 TABLET tablet 1 tablet PO Q8 PRN (Reason: Pain 1-10 Or Fever) prednisone 20 mg tablet 60 mg PO DAILY Qty: 15 0RF Primary Care Provider: Adria Craig Chi Referrals: Adria Craig Chi, MD [Primary Care Provider] - Disposition Disposition: Home, Self Care
[2021-10-07] MEDS: Acyclovir 800 MG Tablet PO (09:23)
== END 2021-10-07 09:25 | disposition home or self-care (01) ==
PROVIDERS: Emergency Provider Student in an Organized Health Care Education/Training Program; PCP Family Medicine Geriatric Medicine; Visit Provider Student in an Organized Health Care Education/Training Program
DX: B02.9 Zoster without complications (principal); G51.0 Bell's palsy; H92.09 Otalgia, unspecified ear; Z87.891 Personal history of nicotine dependence; E03.9 Hypothyroidism, unspecified
CPT/HCPCS: 99283

== ENCOUNTER → 2021-11-13 | Outpatient (CLI) | payer MEDICARE, OTHER, SELFPAY ==
[2021-11-13 12:09] LABS: Absolute Lymphocyte Count 3.35 X10^3/uL (0.83-4.51); Absolute Neutrophil Count 8.9 X10^3/uL (2.0-7.7); Basophil# 0.06 X10^3/uL; Basophil% 0.4 % (0-1); Eosinophil# 0.07 X10^3/uL; Eosinophils% 0.5 % (0-5); Hematocrit 45.7 % (37-47); Hemoglobin 14.8 g/dL (12.0-15.0); Lymphocyte # 3.35 X10^3/ul (0.83-4.51); Lymphocyte % 24.8 % (19-41); Mean Corp Hgb Conc 32.4 g/dL (32-36); Mean Corpuscular Hgb 31.8 pg (27.0-32.0); Mean Corpuscular Volume 98.3 fL (81-99); Mean Platelet Vol. 9.6 fl (6.2-12.0); Monocyte# 1.07 X10^3/uL; Monocyte% 7.9 % (0-10); NRBC Flagged by Analyzer 0 % (0-5); Neutrophil # 8.89 X10^3/uL (2.7-7.7); Neutrophil % 65.7 % (47-70); Platelet Count 358 K/mm3 (150-450); RBC Distribution Width CV 14.2 % (11.6-14.6); RBC Distribution Width SD 50.9 fl (35.1-43.9); Red Blood Count 4.65 M/mm3 (4.2-5.4); White Blood Count 13.5 K/mm3 (4.4-11.0)
[2021-11-13 12:31] LABS: Vitamin D,25 Hydroxy 28.8 ng/mL
[2021-11-13 12:53] LABS: ALB/GLOB Ratio 0.8 RATIO (0.9-2.4); AST(SGOT) 17 U/L (15-37); Alanine Aminotransfer ALT/SGPT 25 U/L (13-56); Albumin, Serum 3.7 g/dL (3.2-5.0); Alkaline Phosphatase 72 U/L (45-117); Anion Gap 8 (5-15); BUN 11 mg/dL (7-18); BUN/Creat Ratio 11.5 RATIO (10-20); Calcium,Total 9.8 mg/dL (8.5-10.1); Chloride 104 mmol/L (98-107); Creatinine, Serum 0.96 mg/dL (0.55-1.02); EST Glomerular Filtration Rate 60 mL/min (>60); Est Glom Filt Rate - Afr Amer 73 mL/min (>60); Globulin 4.4 g/dL (2.2-4.2); Glucose 98 mg/dL (74-106); Protein, Total 8.1 g/dL (6.4-8.2); Sodium Level 138 mmol/L (136-145); Thyroid Stim Hormone (TSH) 0.78 uIU/mL (0.358-3.74)
== END | disposition home or self-care (01) ==
LOC: POLAB3 10:20
PROVIDERS: PCP Family Medicine Geriatric Medicine; Visit Provider Family Medicine Geriatric Medicine
DX: E55.9 Vitamin D deficiency, unspecified (principal); R53.83 Other fatigue
CPT/HCPCS: 36415; 80053; 82306; 84443; 85025

== ENCOUNTER → 2021-12-26 | Outpatient (CLI) | payer MEDICARE, OTHER, SELFPAY ==
[2021-12-26 10:31] LABS: Absolute Lymphocyte Count 2.97 X10^3/uL (0.83-4.51); Basophil# 0.04 X10^3/uL; Basophil% 0.4 % (0-1); Eosinophil# 0.13 X10^3/uL; Eosinophils% 1.5 % (0-5); Hematocrit 41.4 % (37-47); Hemoglobin 13.9 g/dL (12.0-15.0); Lymphocyte # 2.97 X10^3/ul (0.83-4.51); Lymphocyte % 33.3 % (19-41); Mean Corp Hgb Conc 33.6 g/dL (32-36); Mean Corpuscular Hgb 32.2 pg (27.0-32.0); Mean Corpuscular Volume 95.8 fL (81-99); Monocyte# 0.73 X10^3/uL; Monocyte% 8.2 % (0-10); NRBC Flagged by Analyzer 0 % (0-5); Neutrophil # 5.03 X10^3/uL (2.7-7.7); Neutrophil % 56.5 % (47-70); Platelet Count 253 K/mm3 (150-450); RBC Distribution Width CV 14.1 % (11.6-14.6); Red Blood Count 4.32 M/mm3 (4.2-5.4); White Blood Count 8.9 K/mm3 (4.4-11.0)
[2021-12-26 11:04] LABS: ALB/GLOB Ratio 0.9 RATIO (0.9-2.4); AST(SGOT) 14 U/L (15-37); Alanine Aminotransfer ALT/SGPT 24 U/L (13-56); Albumin, Serum 3.4 g/dL (3.2-5.0); Alkaline Phosphatase 57 U/L (45-117); Anion Gap 6 (5-15); BUN 13 mg/dL (7-18); BUN/Creat Ratio 15.5 RATIO (10-20); Calcium,Total 9.4 mg/dL (8.5-10.1); Chloride 107 mmol/L (98-107); Creatinine, Serum 0.84 mg/dL (0.55-1.02); EST Glomerular Filtration Rate 71 mL/min (>60); Est Glom Filt Rate - Afr Amer 85 mL/min (>60); Globulin 3.8 g/dL (2.2-4.2); Glucose 114 mg/dL (74-106); Potassium 3.8 mmol/L (3.5-5.1); Protein, Total 7.2 g/dL (6.4-8.2); Sodium Level 139 mmol/L (136-145)
== END | disposition home or self-care (01) ==
LOC: MTLAB 09:35
PROVIDERS: PCP Family Medicine Geriatric Medicine; Visit Provider Internal Medicine Rheumatology
DX: M06.4 Inflammatory polyarthropathy (principal); M35.00 Sjogren syndrome, unspecified; Z79.899 Other long term (current) drug therapy; M79.7 Fibromyalgia; M18.11 Unilateral primary osteoarthritis of first carpometacarpal joint, right hand; M47.892 Other spondylosis, cervical region; E89.0 Postprocedural hypothyroidism; F32.89 Other specified depressive episodes
CPT/HCPCS: 36415; 80053; 85025

== ENCOUNTER → 2021-12-28 | Outpatient (CLI) | payer MEDICARE, OTHER, SELFPAY ==
--- NOTE | 2021-12-28 13:08 | RAD_ITS ---
STUDY: X-RAY - CERVICAL SPINE REASON FOR EXAM: Female, 76 years old. Neck pain. History of cervical fusion. TECHNIQUE: 3 view(s) of the cervical spine were obtained. COMPARISON: May 09, 2021. FINDINGS: There are degenerative changes of the anterior atlantoaxial articulation. Normal odontoid process. Normal cervical lordosis. There is anterior fusion of C5-C7. The plate and screws and disc spacers are in satisfactory position. There is fusion of the associated disc levels. There is mild disc space narrowing and endplate spondylosis at C4-5. There is no evidence of acute fracture or loss of vertebral axial height. There is mild flattening of the cervical lordosis. The soft tissue structures are unremarkable. RAD/Cerv Spine 2 or 3 Views IMPRESSION: Surgical changes of the lower cervical spine. There is no acute abnormality or interval change. Electronically Signed: Trey Storm DO at 19:57 EDT ,
== END | disposition home or self-care (01) ==
PROVIDERS: PCP Family Medicine Geriatric Medicine; Referring Provider Anesthesiology Pain Medicine; Visit Provider Anesthesiology Pain Medicine
DX: M50.30 Other cervical disc degeneration, unspecified cervical region (principal)
CPT/HCPCS: 72040

== ENCOUNTER → 2022-05-23 | Outpatient (CLI) | payer MEDICARE, OTHER, SELFPAY ==
[2022-05-23 12:40] LABS: Absolute Lymphocyte Count 2.68 X10^3/uL (0.83-4.51); Absolute Neutrophil Count 6.9 X10^3/uL (2.0-7.7); Basophil# 0.05 X10^3/uL; Basophil% 0.5 % (0-1); Eosinophil# 0.09 X10^3/uL; Eosinophils% 0.8 % (0-5); Hematocrit 44.3 % (37-47); Hemoglobin 14.5 g/dL (12.0-15.0); Lymphocyte # 2.68 X10^3/ul (0.83-4.51); Lymphocyte % 25.3 % (19-41); Mean Corp Hgb Conc 32.7 g/dL (32-36); Mean Corpuscular Hgb 31.9 pg (27.0-32.0); Mean Corpuscular Volume 97.6 fL (81-99); Mean Platelet Vol. 10.2 fl (6.2-12.0); Monocyte# 0.83 X10^3/uL; Monocyte% 7.8 % (0-10); NRBC Flagged by Analyzer 0 % (0-5); Neutrophil # 6.93 X10^3/uL (2.7-7.7); Neutrophil % 65.3 % (47-70); Platelet Count 281 K/mm3 (150-450); RBC Distribution Width CV 14.9 % (11.6-14.6); RBC Distribution Width SD 52.3 fl (35.1-43.9); Red Blood Count 4.54 M/mm3 (4.2-5.4); White Blood Count 10.6 K/mm3 (4.4-11.0)
[2022-05-23 13:01] LABS: Vitamin D,25 Hydroxy 50.6 ng/mL
[2022-05-23 13:26] LABS: ALB/GLOB Ratio 0.9 RATIO (0.9-2.4); AST(SGOT) 19 U/L (15-37); Alanine Aminotransfer ALT/SGPT 25 U/L (13-56); Albumin, Serum 3.5 g/dL (3.2-5.0); Alkaline Phosphatase 63 U/L (45-117); Anion Gap 6 (5-15); BUN 11 mg/dL (7-18); BUN/Creat Ratio 10.8 RATIO (10-20); Calcium,Total 9.7 mg/dL (8.5-10.1); Chloride 108 mmol/L (98-107); Creatinine, Serum 1.02 mg/dL (0.55-1.02); EST Glomerular Filtration Rate 56 mL/min (>60); Est Glom Filt Rate - Afr Amer 68 mL/min (>60); Globulin 3.8 g/dL (2.2-4.2); Glucose 102 mg/dL (74-106); Protein, Total 7.3 g/dL (6.4-8.2); Sodium Level 141 mmol/L (136-145); Thyroid Stim Hormone (TSH) 0.17 uIU/mL (0.358-3.74)
== END | disposition home or self-care (01) ==
LOC: LAB.FUTURE 10:57 → POLAB3 10:58
PROVIDERS: PCP Family Medicine Geriatric Medicine; Visit Provider Family Medicine Geriatric Medicine
DX: E55.9 Vitamin D deficiency, unspecified (principal); R53.83 Other fatigue
CPT/HCPCS: 36415; 80053; 82306; 84443; 85025

== ENCOUNTER → 2022-07-16 | Outpatient (CLI) | payer MEDICARE, OTHER, SELFPAY ==
[2022-07-16 17:47] LABS: Thyroid Stim Hormone (TSH) 0.44 uIU/mL (0.358-3.74)
== END | disposition home or self-care (01) ==
LOC: POLAB3 13:50
PROVIDERS: PCP Family Medicine Geriatric Medicine; Visit Provider Family Medicine Geriatric Medicine
DX: E03.9 Hypothyroidism, unspecified (principal)
CPT/HCPCS: 36415; 84443

== ENCOUNTER → 2022-08-05 | Outpatient (CLI) | payer MEDICARE, OTHER, SELFPAY ==
[2022-08-05 16:37] LABS: Amphetamine Urine VISTA NEGATIVE (<1000 ng/mL); Barbiturate Urine VISTA NEGATIVE (< 200 ng/mL); Benzodiazepine Urine VISTA NEGATIVE (< 200 ng/mL); Cocaine Urine VISTA NEGATIVE (< 300 ng/mL); Ecstacy Urine VISTA NEGATIVE (< 500 ng/mL); Methadone Urine VISTA NEGATIVE (< 300 ng/mL); PCP Urine VISTA NEGATIVE (< 25 ng/mL); THC Urine VISTA NEGATIVE (< 50 ng/mL); Vista UDS pH Range 7
== END | disposition home or self-care (01) ==
PROVIDERS: PCP Family Medicine Geriatric Medicine; Referring Provider Anesthesiology Pain Medicine; Visit Provider Anesthesiology Pain Medicine
DX: F11.20 Opioid dependence, uncomplicated (principal)
CPT/HCPCS: 80307

== ENCOUNTER → 2022-11-25 | Outpatient (CLI) | payer MEDICARE, OTHER, SELFPAY ==
[2022-11-25 11:57] LABS: Absolute Neutrophil Count 6.1 X10^3/uL (2.0-7.7); Basophil# 0.06 X10^3/uL; Basophil% 0.6 % (0-1); Eosinophil# 0.09 X10^3/uL; Eosinophils% 0.9 % (0-5); Hemoglobin 14.4 g/dL (12.0-15.0); Lymphocyte % 29.5 % (19-41); Mean Corpuscular Hgb 31.5 pg (27.0-32.0); Mean Corpuscular Volume 98.5 fL (81-99); Mean Platelet Vol. 9.9 fl (6.2-12.0); Monocyte% 7.1 % (0-10); NRBC Flagged by Analyzer 0 % (0-5); Neutrophil # 6.07 X10^3/uL (2.7-7.7); Neutrophil % 61.7 % (47-70); Platelet Count 288 K/mm3 (150-450); RBC Distribution Width CV 13.4 % (11.6-14.6); RBC Distribution Width SD 47.6 fl (35.1-43.9); Red Blood Count 4.57 M/mm3 (4.2-5.4); White Blood Count 9.8 K/mm3 (4.4-11.0)
[2022-11-25 12:10] LABS: Vitamin D,25 Hydroxy 56.7 ng/mL
[2022-11-25 12:20] LABS: ALB/GLOB Ratio 0.9 RATIO (0.9-2.4); AST(SGOT) 16 U/L (15-37); Alanine Aminotransfer ALT/SGPT 30 U/L (13-56); Albumin, Serum 3.6 g/dL (3.2-5.0); Alkaline Phosphatase 60 U/L (45-117); Anion Gap 5 (5-15); BUN 14 mg/dL (7-18); BUN/Creat Ratio 14.5 RATIO (10-20); Calcium,Total 9.2 mg/dL (8.5-10.1); Chloride 107 mmol/L (98-107); Cholesterol 157 mg/dL (200); Creatinine, Serum 0.97 mg/dL (0.55-1.02); EST Glomerular Filtration Rate 60 mL/min (>60); Est Glom Filt Rate - Afr Amer 72 mL/min (>60); Globulin 3.8 g/dL (2.2-4.2); Glucose 123 mg/dL (74-106); High Density Lipoprotein 46 mg/dL; Protein, Total 7.4 g/dL (6.4-8.2); Sodium Level 139 mmol/L (136-145); Thyroid Stim Hormone (TSH) 1.09 uIU/mL (0.358-3.74); Triglycerides 156 mg/dL; Very Low Density Lipoprotein 31 mg/dL (5-40)
== END | disposition home or self-care (01) ==
LOC: POLAB3 11:10
PROVIDERS: PCP Family Medicine Geriatric Medicine; Visit Provider Family Medicine Geriatric Medicine
DX: R53.83 Other fatigue (principal); E55.9 Vitamin D deficiency, unspecified; E78.5 Hyperlipidemia, unspecified
CPT/HCPCS: 36415; 80053; 80061; 82306; 84443; 85025

== ENCOUNTER → 2022-11-27 | Outpatient (CLI) | payer MEDICARE, OTHER, SELFPAY ==
[2022-11-27 15:07] LABS: Absolute Lymphocyte Count 2.72 X10^3/uL (0.83-4.51); Absolute Neutrophil Count 4.8 X10^3/uL (2.0-7.7); Basophil# 0.07 X10^3/uL; Basophil% 0.8 % (0-1); Eosinophil# 0.09 X10^3/uL; Eosinophils% 1.1 % (0-5); Hematocrit 44.8 % (37-47); Hemoglobin 14.4 g/dL (12.0-15.0); Lymphocyte # 2.72 X10^3/ul (0.83-4.51); Lymphocyte % 32.1 % (19-41); Mean Corp Hgb Conc 32.1 g/dL (32-36); Mean Corpuscular Hgb 31.9 pg (27.0-32.0); Mean Corpuscular Volume 99.3 fL (81-99); Mean Platelet Vol. 10.1 fl (6.2-12.0); Monocyte# 0.75 X10^3/uL; Monocyte% 8.8 % (0-10); NRBC Flagged by Analyzer 0 % (0-5); Neutrophil # 4.84 X10^3/uL (2.7-7.7); Neutrophil % 57.1 % (47-70); Platelet Count 277 K/mm3 (150-450); RBC Distribution Width CV 13.5 % (11.6-14.6); RBC Distribution Width SD 48.5 fl (35.1-43.9); Red Blood Count 4.51 M/mm3 (4.2-5.4); White Blood Count 8.5 K/mm3 (4.4-11.0)
[2022-11-27 15:46] LABS: ALB/GLOB Ratio 0.9 RATIO (0.9-2.4); AST(SGOT) 17 U/L (15-37); Alanine Aminotransfer ALT/SGPT 32 U/L (13-56); Albumin, Serum 3.6 g/dL (3.2-5.0); Alkaline Phosphatase 63 U/L (45-117); Anion Gap 4 (5-15); BUN 14 mg/dL (7-18); Calcium,Total 9.2 mg/dL (8.5-10.1); Chloride 108 mmol/L (98-107); Creatinine, Serum 0.93 mg/dL (0.55-1.02); EST Glomerular Filtration Rate 62 mL/min (>60); Est Glom Filt Rate - Afr Amer 75 mL/min (>60); Globulin 3.8 g/dL (2.2-4.2); Glucose 128 mg/dL (74-106); Potassium 3.6 mmol/L (3.5-5.1); Protein, Total 7.4 g/dL (6.4-8.2); Sodium Level 140 mmol/L (136-145)
== END | disposition home or self-care (01) ==
LOC: MTLAB 11:52
PROVIDERS: PCP Family Medicine Geriatric Medicine; Referring Provider Internal Medicine Rheumatology; Visit Provider Internal Medicine Rheumatology
DX: M06.4 Inflammatory polyarthropathy (principal); M79.7 Fibromyalgia; Z79.899 Other long term (current) drug therapy
CPT/HCPCS: 36415; 80053; 85025

== ENCOUNTER → 2023-03-04 | Outpatient (CLI) | payer MEDICARE, OTHER, SELFPAY ==
--- NOTE | 2023-03-04 16:25 | MRI_ITS ---
STUDY: MRI CERVICAL SPINE WITHOUT CONTRAST REASON FOR EXAM: Female, 77 years old. RADICULOPATHY TECHNIQUE: Standardized fat and water weighted pulse sequences were obtained in the sagittal and axial planes. COMPARISON: May 25, 2015 FINDINGS: Normal foramen magnum and brainstem-cervical cord junction. Normal craniovertebral junction. Normal anterior atlantoaxial articulation. Normal odontoid process. Normal cervical lordosis. Normal vertebral bodies and posterior osseous elements. C2-3: Normal endplates. Normal disc height, signal and morphology. Normal central canal and intervertebral neural foramina. C3-4: Normal endplates. Normal disc height, signal and morphology. Normal central canal and intervertebral neural foramina. C4-5: Normal endplates. Narrowed disc space with minor bulging of the disc and small left foraminal disc protrusion.. Normal central canal. Severe left neural foraminal stenosis secondary to disc and bony hypertrophy. C5-6: Status post anterior fusion.. Normal central canal. Severe left neural foraminal stenosis secondary to bony hypertrophy C6-7: Status post anterior fusion.. Normal central canal. Moderate bilateral neural foraminal encroachment secondary to bony hypertrophy. C7-T1: Normal endplates. Normal disc height, signal and morphology. Normal central canal and intervertebral neuroforamina Normal cervical cord. Normal visualized soft tissue structures. Findings are similar to that seen on prior exam MRI/Spine Cervical (Routine) IMPRESSION: Status post anterior fusion at C5-6 and C4-5. Severe left neural foraminal stenosis at C4-5 and C5-6 secondary to bony hypertrophy Moderate bilateral neural foraminal encroachment at C6-7 secondary to bony hypertrophy Electronically Signed: Gary Talbert MD at 19:26 EST Reading Location ID and State: [facility] / [place] Tel [phone], Service support ,
--- OUTSIDE RECORDS SUMMARY | 2023-03-04 17:55 | XMS RPT_ITS | CCD ---
Author Name Unknown Address [address] [place] [address] Organization [facility] Care Team Providers Care Provider Relations Representative Name Role Phone BRENT CLEMENTE Unavailable Unavailable BRYNGIOVANNAS Jerrica Unavailable Unavailable NO REFERRING DR Unavailable Unavailable BRYNBRENT Unavailable Unavailable DUSTIN, JUSTO-CHI Unavailable Unavailable LOY ASIF Attending Unavail able DUSTIN, JUSTO CHI Primary Care Unavailable Dustin , Justo Chi Primary Care Provider ANN MARIE MORALES Referring Unavailable GENERIC PROVIDER, NO ASSIGNED PCP Primary Care Unavailable ANN MARIE MORALES Referring Unavailable GENERIC PROVIDER, NO ASSIGNED PCP Primary Care Unavailable DUSTIN, JUSTO CHI Primary Care Unavailable VELLANKI, ZORAN Admitting Unavailable DUSTIN, JUSTO CHI Primary Care Unavailable VELLANKI, ZORAN Referring Unavailable DUSTIN, JUSTO CHI Primary Care Unavailable VELLANKI, ZORAN Referring Unavailable DUSTIN, JUSTO CHI Primary Care Unavailable VELLANKI, ZORAN Admitting Unavailable DUSTIN, JUSTO CHI Primary Care Unavailable DORINDA KWOK Admitting Unavailable Allergies Allergy Classification Reported Allergen(s) Allergy Type Date of Onset Reaction(s) Facility (1 source) NO KNOWN ALLERGIES; Translations: [NO KNOWN ALLERGIES] Propensity to adverse reactions (disorder) [facility] Repository (1 source) NKA; Translations: [NKA] Propensity to adverse reactions (disorder) [facility] Repository (1 source) ALLERGIES NOT ON FILE; Translations: [ALLERGIES NOT ON FILE] Propensity to adverse reactions (disorder) [facility] 2 Repository Medications Current Medications Medication Drug Class(es) Dates Sig (Normalized) Sig (Original) acetaminophen 325 mg / HYDROcodone bitartrate 5 mg oral tablet (7 sources) Opioid Agonist Start: 06-11-2021 take 1 tablet by mouth three times daily as needed HYDROcodone-acetam inophen (NORCO) 5-325 mg per tablet TAKE 1 TABLET BY MOUTH THREE TIMES DAILY NEEDED FOR 28 DAYS 0 06/11/2021 Active DULoxetine 60 mg delayed release oral capsule (7 sources) Serotonin and Norepinephrine Reuptake Inhibitor Start: 11-10-2019 take 1 capsule by mouth twice daily DULoxetine (CYMBALTA) 60 MG capsule Take 60 mg by mouth 2 (two) times a day . 0 11/10/2019 Active folic acid 1 mg oral tablet (7 sources) Start: 11-10-2019 folic acid (FOLVITE) 1 MG tablet Take 2 mg by mouth daily . 0 11/10/2019 Active leucovorin 25 mg oral tablet (7 sources) Folate Analog Start: 06-04-2021 take 1 tablet by mouth once daily leucovorin (WELLCOVORIN) 25 MG tablet Take 25 mg by mouth daily . 0 06/04/2021 Active levothyroxine sodium 0.112 mg oral tablet (7 sources) l-Thyroxine Start: 05-29-2021 take 1 tablet by mouth once daily in the morning levothyroxine (SYNTHROID, LEVOTHROID) 112 MCG tablet Take 112 mcg by mouth every morning . 0 05/29/2021 Active methotrexate 2.5 mg oral tablet (7 sources) Folate Analog Metabolic Inhibitor Start: 11-10-2019 take 1 tablet by mouth two times weekly methotrexate (TREXALL) 2.5 MG tablet Take 2.5 mg by mouth twice weekly . 0 11/10/2019 Active traZODone hydrochloride 150 mg oral tablet (7 sources) Serotonin Reuptake Inhibitor Start: 02-05-2007 traZODone (DESYREL) 150 MG tablet Take 75 mg by mouth nightly . 0 02/05/2007 Active Problems Active Problems Problem Classification Problem Date Documented Da te Episodic/Chronic Other connective tissue disease (14 sources) Iliopsoas bursitis of right hip; Translations: [Other bursitis of hip, right hip] Onset: 07-12-2021 Episodic Other connective tissue disease (2 sources) Pain in right foot; Translations: [Pain in right foot] Onset: 12-20-2022 Episodic Other connective tissue disease (2 sources) Fibromyalgia; Translations: [Fibromyalgia] Onset: 02-26-2023 Episodic Rheumatoid arthritis and related disease (2 sources) Inflammatory polyarthropathy; Translations: [Inflammatory polyarthropathy] Onset: 06-20-2022 Chronic Spondylosis; intervertebral disc disorders; other back problems (2 sources) Spinal stenosis, cervical region; Translations: [Radiculopathy, cervical region] Onset: 11-15-2016 Episodic Substance-related disorders (2 sources) Opioid dependence, uncomplicated; Translations: [Opioid dependence, uncomplicated] Onset: 05-13-2022 Chronic Systemic lupus erythematosus and connective tissue disorders (2 sources) Sicca syndrome, unspecified; Translations: [Sjogren syndrome, unspecified] Onset: 02-26-2023 Chronic Unclassified (1 source) Unknown / UNK(Unknown) Onset: 05-21-2017 Past or Other Problems Problem Classification Problem Date Documented Da te Episodic/Chronic Other aftercare (2 sources) Other [facility] (current) drug therapy; Translations: [Other technician terminal and repeater (current) drug therapy] Onset: 06-20-2022 Episodic Other fractures (3 sources) Fracture of neck, unspecified, sequela; Translations: [Fracture of neck, unspecified, subsequent encounter] Onset: 11-15-2016 Episodic Results Test Name Value Interpretation Reference Range Facil ity Encounters Encounter Date Encounter Type Care Provider Facility Start: 02-26-2023 End: 03-02-2023 [facility] Start: 01-20-2023 End: 01-21-2023 ambulatory [facility] Start: 12-20-2022 End: 12-21-2022 ambulatory [facility] Start: 09-10-2022 End: 09-14-2022 ambulatory [facility] Start: 06-20-2022 End: 06-24-2022 ambulatory [facility] Start: 05-13-2022 End: 05-17-2022 ambulatory [facility] Start: 03-25-2022 End: 03-29-2022 ambulatory [facility] Start: 08-09-2021 End: 08-09-2021 ambulatory Loy Asif MD Work Phone: [facility] Procedures Date Procedure Procedure Detail Performing Clinician Start: 01-20-2023 XR FOOT RIGHT 3+ VIEWS ANN MARIE MORALES Start: 12-20-2022 XR FOOT RIGHT 3+ VIEWS ANN MARIE MORALES Plan of Treatment Date Care Activity Detail Author Start: 09-21-2021 COVID-19 Vaccine (5 - Booster for Moderna series) COVID-19 Vaccine (5 - Booster for Moderna series) [facility] Start: 08-09-2021 End: 08-09-2021 ambulatory 08/09/2021 Treatment Rehabilitation Loy Asif MD [address] [address] Robert Patel, PT [facility] Start: 08-07-2021 End: 08-07-2021 ambulatory 08/07/2021 Treatment Rehabilitation Loy Asif MD [address] [address] Alexandria Sanchez [facility] Start: 08-02-2021 End: 08-02-2021 ambulatory 08/02/2021 [place] [address] [place] [id number] Robert Patel, PT [facility] Start: 07-31-2021 End: 07-31-2021 ambulatory 07/31/2021 Treatment Rehabilitation Loy Asif MD [facility] [address] [address] Sae Payne MEAT [employer]ER [facility] Start: 07-26-2021 End: 07-26-2021 ambulatory [facility] Start: 07-24-2021 End: 07-24-2021 ambulatory 07/24/2021 Treatment Rehabilitation Loy Asif MD [address] [address] Sae Payne PTA [facility] Start: 07-20-2021 End: 07-20-2021 ambulatory 07/20/2021 Treatment Rehabilitation Loy Asif MD [address] [address] Alexandria Sanchez PTA [facility] Start: 07-17-2021 End: 07-17-2021 ambulatory 07/17/2021 Treatment Rehabilitation Loy Asif MD [address] [address] Alexandria Sanchez PTA [facility] Start: 07-05-2017 Administration of herpes zoster vaccine Zoster Vaccines (2 of 2) [facility] Start: 11-14-2015 Tetanus vaccination Tetanus: Every 10yrs [facility] Start: 11-04-2012 Fall risk assessment Falls Risk Assessment [facility] Start: 11-04-1997 Screening for malignant neoplasm of colon [facility] Start: 1987 Screening for malignant neoplasm of breast Mammogram [facility] Start: 11-04-1965 Hepatitis C screening Hepatitis C Screening [facility] Start: 1959 Depression screening using PHQ-9 (Patient Health Questionnaire 9) score Depression Screening (PHQ-2/9) [facility] Start: 11-04-1953 Pneumococcal Vaccine: Age 65+ (1 - PCV) Pneumococcal Vaccine: Age 65+ (1 - PCV) [facility] Start: 11-04-1950 History and physical examination, annual for health maintenance Wellness Visit [facility] Start: 1945 Physical therapy management PT Plan of Care [facility] Start: 1945 Screening for osteoporosis Dexa Scan [facility] Payers Date Payer Category Payer Private Health Insurance [id number] 2015 Private Health Insurance HUMANA HUMANA OTHER AFTER MEDICARE [id number] 2015-Present [phone] [address] [address] [place] [address] [id number] 2012 Medicare [id number] 2012 Medicare MEDICARE MEDICAR E PART A & B [id number] 2012-Present [phone] S [id number] [place] [address] [place] [place] [address] [id number] 1945 Unknown [id number] 1945 Unknown [id number] 1945 Unknown [id number] 1945 Unknown [id number] 1945 Unknown [id number] 1945 Unknown [id number] 1945 Unknown [id number] 1945 Unknown [id number] Medicare [id number] Social History Date Type Detail Facility Start: 06-28-2021 Tobacco smoking status COIS Never sm oked tobacco [facility] Start: 06-28-2021 Cigarette pack-years [facility] Start: 06-28-2021 Tobacco use and exposure Smokeless t obacco non-user [facility] Start: 07-12-2021 End: 08-09-2021 Alcohol intake Lifetime non-drinker (finding) [facility] Start: 1945 Sex Assigned At Not on file [facility] Start: 07-02-2021 End: 08-09-2021 Exposure to SARS-CoV-2 (event) Not sure [facility] Clinical Notes 07-12-2021 to 08-09-2021 Robert Patel, PT - 08/09/2021 1:00 PM Gurdeepher Payne, MEAT [employer] - 07/31/2021 1:00 PM Agusto Patel, PT - 07/26/2021 8:30 AM Angélica Payne, MEAT LO[employer]ER - 07/24/2021 1:00 PM EDT Note Date & Type Note Facility 08-09-2021 History of Presen t illness Narrative [facility] OUT[facility] DAILY TREATMENT NOTE Today's Date 08/09/2021 Patient Name: Gali Thurston Date of : 1945 Current Visit #: 8 Authorized Visits: 199 Case Name: Right Hip Iliopsoas Bursitis History: Pre-Treatment Pain Scale: 5 Symptoms: gradually improved Functional Diagnosis: 1. Iliopsoas bursitis of right hip Clinical Information: Subjective: Pt states she is feeling about the same. Objective Hip Right Hip Range of Motion: WFL Muscle Strength: Flexion: 4+ Extension: 4+ Abduction: 5 Adduction: 5 IR: 4+ ER: 4+ FOTO: 36 Treatments: Physical Therapy Exercise Log - 08/09/21 1303 OTHER Precautions/Contraindications Supervising PT: Qasim - Ischial tuberosity bursitis and iliopsoas syndrome Notes visit 7: 1:03 - 1:48 Vitals no scifit Therapeutic Exercise (54945) Parameters standing lunge stretch, calf stretch 3x20'' Intervention seated HS stretch 3x20'' Parameters side glide into wall 5x5 Intervention -- Parameters -- Intervention bridges 5''x10 Parameters -- Intervention -- Parameters -- Intervention -- Parameters standing hip abd and ext x10 bilat. Intervention paloff press L3 x5 bilat. Parameters -- Intervention -- Manual Therapy (30389) Intervention -- PT Treatment Times Therex Total Time 40 Direct Treatment Time 40 Total Treatment Time 45 Goals: Physical Therapy Ortho Goals: MOBILITY: Patient will be able to ambulate for 1 hour in community without difficulty in 6 weeks. MOBILITY: Patient will be able to ambulate on uneven surfaces without difficulty in 6 weeks. CHANGING MAINTAINING POSITON: Patient will be able to sit for 1 hour without pain in 6 weeks IMPAIRMENT: Patient will demonstrate improved postural awareness in PT sessions to facilitate mechanical alignment and function in 3 weeks. IMPAIRMENT: Improve pain from 9/10 to <4/10 during prolonged sitting in 6 weeks OTHER: Patient will increase FOTO score from 40 to at least 60 to show MDC/MCII and expected functional outcome in 6 weeks. OTHER: Patient will be able to properly demonstrate independence with HEP in 1 week. Patient Education: Quality of movement, Verbal HEP, and Diagnosis and recovery specific education with patient verbalized understanding. Post-Treatment Pain Scale: 4 Assessment: Patient had an expected response to treatment. Skilled Intervention demonstrated by modifications of treatment per exercise log including assessment of patient's response and safety interventions per exercise log. Progress towards goals as expected. Plan: Discharge Robert Patel PT State License, [id number] documented in this encounter [facility] 07-31-2021 History of Presen t illness Narrative [facility] DAILY TREATMENT NOTE Today's Date 07/31/2021 Patient Name: Gali Thurston Date of : 1945 Current Visit #: 6 Authorized Visits: 199 Case Name: Right Hip Iliopsoas Bursitis History: Pre-Treatment Pain Scale: 5 Symptoms: stabilized Functional Diagnosis: 1. 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 Intervention paloff press L3 x5 bilat. Parameters see manual below Manual Therapy (05308) Intervention STM 12' - roll to IT band and ball to proximal HS, glutes and piriformis NT PT Treatment Times Therex Total Time 38 Direct Treatment Time 38 Total Treatment Time 48 [place] [facility] RE[facility] TREATMENTS:[id number]} Goals: Physical Therapy Ortho Goals: MOBILITY: Patient will be able to ambulate for 1 hour in community without difficulty in 6 weeks. MOBILITY: Patient will be able to ambulate on uneven surfaces without difficulty in 6 weeks. CHANGING MAINTAINING POSITON: Patient will be able to sit for 1 hour without pain in 6 weeks IMPAIRMENT: Patient will demonstrate improved postural awareness in PT sessions to facilitate mechanical alignment and function in 3 weeks. IMPAIRMENT: Improve pain from 9/10 to <4/10 during prolonged sitting in 6 weeks OTHER: Patient will increase FOTO score from 40 to at least 60 to show MDC/MCII and expected functional outcome in 6 weeks. OTHER: Patient will be able to properly demonstrate independence with HEP in 1 week. Patient Education: Verbal HEP with patient verbalized understanding. Post-Treatment Pain Scale: 5 Assessment: Patient had an expected response to treatment. Skilled Intervention demonstrated by modifications of treatment per exercise log including assessment of patient's response and safety interventions per exercise log. Progress towards goals as expected. Plan for Next Visit: Treatment Visit with focus on progressing as tolerated Sae Payne PTA STATE LICENSE, [id number] documented in this encounter [facility] 07-26-2021 History of Presen t illness Narrative [facility] DAILY TREATMENT NOTE Today's Date 07/26/2021 Patient Name: Gali Thurston Date of : 1945 Current Visit #: 5 Authorized Visits: 199 Case Name: Right Hip Iliopsoas Bursitis History: Pre-Treatment Pain Scale: 4 Symptoms: unchanged Functional Diagnosis: 1. Iliopsoas bursitis of right hip Clinical Information: Subjective: Pt reports increased pain this morning for unknown reason. 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 Intervention see manual below Manual Therapy (44502) Intervention STM 12' - roll to IT band and ball to proximal HS, glutes and piriformis PT Treatment Times Therex Total Time 34 Manual Therapy Total Time 12 Direct Treatment Time 46 Total Treatment Time 46 [facility] RE[facility] TREATMENTS:[id number]} Goals: Physical Therapy Ortho Goals: MOBILITY: Patient will be able to ambulate for 1 hour in community without difficulty in 6 weeks. MOBILITY: Patient will be able to ambulate on uneven surfaces without difficulty in 6 weeks. CHANGING MAINTAINING POSITON: Patient will be able to sit for 1 hour without pain in 6 weeks IMPAIRMENT: Patient will demonstrate improved postural awareness in PT sessions to facilitate mechanical alignment and function in 3 weeks. IMPAIRMENT: Improve pain from 9/10 to <4/10 during prolonged sitting in 6 weeks OTHER: Patient will increase FOTO score from 40 to at least 60 to show MDC/MCII and expected functional outcome in 6 weeks. OTHER: Patient will be able to properly demonstrate independence with HEP in 1 week. Patient Education: Quality of movement, Verbal HEP, Diagnosis and recovery specific education, and Pain Management with patient verbalized understanding. Post-Treatment Pain Scale: 3 Assessment: Patient had an expected response to treatment. Skilled Intervention demonstrated by modifications of treatment per exercise log including increased volume and assessment of patient's response and safety interventions per exercise log. Progress towards goals as expected. Plan for Next Visit: Treatment Visit with focus on core/pelvic stability Robert Patel PT State License, [id number] documented in this encounter [facility] 07-24-2021 History of Presen t illness Narrative [facility] DAILY TREATMENT NOTE Today's Date 07/24/2021 Patient Name: Gali Thurston Date of : 1945 Current Visit #: 4 Authorized Visits: 199 Case Name: Right Hip Iliopsoas Bursitis History: Pre-Treatment Pain Scale: 4 Symptoms: stabilized Functional Diagnosis: 1. 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 Notes visit 3 [id number] Vitals no scifit, consider heel lift for right shoe Therapeutic Exercise (55804) Parameters standing lunge stretch, calf stretch 3x20'' Intervention seated HS stretch 3x20'' Parameters supine piriformis stretch 3x20'' Intervention bent knee fall outs 5''x10 Parameters PPTs Intervention bridges 5''x10 Parameters sidelying SLR abd x10 Intervention Supine abd RTB x20, Add 3'' x 20 Parameters STM in Left s/l, psoas release Intervention supine IT band stretch with strap 2x20'' Parameters Seated april 3'' x10 Manual Therapy (54969) Intervention STM 12' with ball and stick along R glut area. PT Treatment Times Therex Total Time 40 Direct Treatment Time 40 Total Treatment Time 44 [place] [facility] TREAT[facility]:[id number]} Goals: Physical Therapy Ortho Goals: MOBILITY: Patient will be able to ambulate for 1 hour in community without difficulty in 6 weeks. MOBILITY: Patient will be able to ambulate on uneven surfaces without difficulty in 6 weeks. CHANGING MAINTAINING POSITON: Patient will be able to sit for 1 hour without pain in 6 weeks IMPAIRMENT: Patient will demonstrate improved postural awareness in PT sessions to facilitate mechanical alignment and function in 3 weeks. IMPAIRMENT: Improve pain from 9/10 to <4/10 during prolonged sitting in 6 weeks OTHER: Patient will increase FOTO score from 40 to at least 60 to show MDC/MCII and expected functional outcome in 6 weeks. OTHER: Patient will be able to properly demonstrate independence with HEP in 1 week. Patient Education: Verbal HEP with patient verbalized understanding. Post-Treatment Pain Scale: 4 Assessment: Patient had an expected response to treatment. Skilled Intervention demonstrated by modifications of treatment per exercise log including assessment of patient's response and safety interventions per exercise log. Progress towards goals as expected. Plan for Next Visit: Treatment Visit with focus on progressing as tolerated Sae Payne PTA STATE LICENSE, [id number] documented in this encounter [facility] 07-20-2021 History of Presen t illness Narrative [facility] DAILY TREATMENT NOTE Today's Date 07/20/2021 Patient Name: Gali Thurston Date of : 1945 Current Visit #: 3 Authorized Visits: 199 Case Name: Right Hip Iliopsoas Bursitis History: Pre-Treatment Pain Scale: 5 Symptoms: stabilized Functional Diagnosis: 1. Iliopsoas bursitis of right hip Clinical Information: Subjective: she is still having a lot of discomfort with activity.She thinks the heel lift was a little too high. Objective initiated seated and supine piriformis stretches without sx increase. One level on the heel lift was removed and she will let us know if it improves. 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 PT Treatment Times Therex Total Time 22 Manual Therapy Total Time 12 Direct Treatment Time 34 Total Treatment Time 40 [facility] RE[facility] TREATMENTS:[id number]} Goals: Physical Therapy Ortho Goals: MOBILITY: Patient will be able to ambulate for 1 hour in community without difficulty in 6 weeks. MOBILITY: Patient will be able to ambulate on uneven surfaces without difficulty in 6 weeks. CHANGING MAINTAINING POSITON: Patient will be able to sit for 1 hour without pain in 6 weeks IMPAIRMENT: Patient will demonstrate improved postural awareness in PT sessions to facilitate mechanical alignment and function in 3 weeks. IMPAIRMENT: Improve pain from 9/10 to <4/10 during prolonged sitting in 6 weeks OTHER: Patient will increase FOTO score from 40 to at least 60 to show MDC/MCII and expected functional outcome in 6 weeks. OTHER: Patient will be able to properly demonstrate independence with HEP in 1 week. Patient Education: Quality of movement with patient demonstrated understanding. Post-Treatment Pain Scale: 4 Assessment: Patient had an expected response to treatment. Skilled Intervention demonstrated by modifications of treatment per exercise log including increased load and safety interventions per exercise log. Progress towards goals as expected. Plan for Next Visit: Treatment Visit with focus on pain control Alexandria Sanchez PTA STATE LICENSE, [id number] documented in this encounter [facility] 07-17-2021 History of Presen t illness Narrative [facility] OUTPATIENT REHABILITATION DAILY TREATMENT NOTE Today's Date 07/17/2021 Patient Name: Gali Thurston Date of : 1945 Current Visit #: 2 Authorized Visits: 199 Case Name: Right Hip Iliopsoas Bursitis History: Pre-Treatment Pain Scale: 4 Symptoms: stabilized Functional Diagnosis: 1. Iliopsoas bursitis of right hip Clinical Information: Subjective: she has the most pain when she's sitting. Objective initiated STM with stick and ball along sciatic/SI area on R glut. We put a heel lift in her R shoe for leg length discrepency. 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 REH[facility] TREATMENTS:[id number]} Goals: Physical Therapy Ortho Goals: MOBILITY: Patient will be able to ambulate for 1 hour in community without difficulty in 6 weeks. MOBILITY: Patient will be able to ambulate on uneven surfaces without difficulty in 6 weeks. CHANGING MAINTAINING POSITON: Patient will be able to sit for 1 hour without pain in 6 weeks IMPAIRMENT: Patient will demonstrate improved postural awareness in PT sessions to facilitate mechanical alignment and function in 3 weeks. IMPAIRMENT: Improve pain from 9/10 to <4/10 during prolonged sitting in 6 weeks OTHER: Patient will increase FOTO score from 40 to at least 60 to show MDC/MCII and expected functional outcome in 6 weeks. OTHER: Patient will be able to properly demonstrate independence with HEP in 1 week. Patient Education: Quality of movement with patient demonstrated understanding. Post-Treatment Pain Scale: 2 Assessment: Patient had an expected response to treatment. Skilled Intervention demonstrated by modifications of treatment per exercise log including increased load and safety interventions per exercise log. Progress towards goals as expected. Plan for Next Visit: Treatment Visit with focus on pain control Alexandria Sanchez PTA STATE LICENSE, [id number] documented in this encounter [facility] 07-12-2021 History of Presen t illness Narrative [facility] OUTPATIENT REHABILITATION Evaluation Today's Date 07/12/2021 Patient Name: Gali Thurston Date of : 1945 Case Name: Right Hip Iliopsoas Bursitis Functional Diagnosis: 1. Iliopsoas bursitis of right hip Clinical Information: Subjective Referring Diagnosis: Right Iliopsoas Bursitis History of Present Illness Subjective History: Pt reports chronic right leg pain and inability to get relief when sitting/resting. She reports most of the pain is in the groin, medial thigh and at the ischial tuberosity. She reports h/o chronic neck and low back pain for which she has had surgery in both regions. She reports issues with the right leg associated with the back pain. She has been managing sx with various medications and is now seeing a pain management Doctor in [place]. She eventually underwent THR with some complication during surgery. She states began developing progressively increasing pain in the medial thigh. She returned for surgery to remove additional hardware used secondary to the complication. She had an MRI showing a torn muscle at the ischial tuberosity. She has also received multiple injections around the hip. She also reports completing prior PT with no success. Previous Imaging: X-ray and MRI Pain Scale Pain location: hip Average Pain: 5/10 Pain at highest: 9/10 Aggravating factors: prolonged sitting Easing factors: heat 24 Hour Symptom Behavior End of day pain: worse Personal Goals: Decrease pain Be able to sit comfortably Return to prior activity level Functional Mobility Status Functional Limitations: sitting Current Mobility Status: Community: no device and independent Bed Transfer: independent Toilet Transfer: independent Shower/Tub: independent Car Transfer: independent Current Activity Level: low active Social Support: Mormon, social, or cultural considerations to be made aware of before starting treatment: No Home Environment Current Home Environment: Setup: multi-level house Activities of Daily Living: independent with all Instrumental Activities of Daily Livingto be assessed Sleep Assessment Preferred sleep position: on side (usually left) Sleep disturbance: no Sleep Disturbance Red Flags: None Comments: Barriers to Care: None Mormon, social, or cultural considerations to be made aware of before starting treatment: No Hip Right Hip Tenderness: piriformis, hip flexor and greater trochanter Range of Motion: Flexion Active: 100 Extension Active: 12 Abduction Active: 24 Adduction Active: 20 IR Active: 22 (seated) ER Active: 40 (seated) Muscle Strength: Flexion: 4 Extension: 4 Abduction: 5 Adduction: 5 IR: 4 ER: 4- Other Sensation: normal FOTO: 40 Treatments: Physical Therapy Exercise Log - 07/12/21 2312 OTHER Precautions/Contraindications Supervising PT: Qasim - Ischial tuberosity bursitis and iliopsoas syndrome Notes Eval: 10:48 - 11:35 Vitals no scifit, consider heel lift for right shoe Therapeutic Exercise (23452) Intervention provided written HEP handouts consisting of the following: Parameters standing lunge stretch Intervention seated HS stretch Parameters supine piriformis stretch Intervention bent knee fall outs Parameters PPTs Intervention bridges Parameters sidelying SLR abd Intervention add calf stretches, progress glute and abd strengthening, manual for psoas release PT Treatment Times Total Treatment Time 37 Goals: Physical Therapy Ortho Goals: MOBILITY: Patient will be able to ambulate for 1 hour in community without difficulty in 6 weeks. MOBILITY: Patient will be able to ambulate on uneven surfaces without difficulty in 6 weeks. CHANGING MAINTAINING POSITON: Patient will be able to sit for 1 hour without pain in 6 weeks IMPAIRMENT: Patient will demonstrate improved postural awareness in PT sessions to facilitate mechanical alignment and function in 3 weeks. IMPAIRMENT: Improve pain from 9/10 to <4/10 during prolonged sitting in 6 weeks OTHER: Patient will increase FOTO score from 40 to at least 60 to show MDC/MCII and expected functional outcome in 6 weeks. OTHER: Patient will be able to properly demonstrate independence with HEP in 1 week. CPT Code 38084 Low 04042 Moderate 24562 High History 0 1-2 3+ Comorbidities: chronic pain, fibromyalgia, prior surgical history, and RA, Personal factors: chronicity or severity of the current condition Examination of body systems (elements of body structures & functions, activity limitations, and/or participation restrictions) 1-2 elements 3+ elements 4+ elements See below clinical impression Clinical Presentation Stable Evolving Unstable As evidenced by reproduction of or changes in symptoms with certain movements and reports of fluctuating symptoms over time Decision Making Low (FOTO >/= 69) Moderate (FOTO 34 - 68) High (FOTO </= 33) FOTO score= 40 Pt is a 75 y.o. female who presents to PT services with c/o right hip/buttock pain. Upon assessment, pt has been found with the following impairments: antalgic gait, pain, and Numbness/tingling. The documented impairments result in the following functional limitations: regular PA/exercise, functional mobility, recreational activities, and quality of life. The pt would benefit from skilled PT services focused on the above listed impairments and limitations in order to safely progress pt to their desired level of function. Pt to be discharged from OP PT services if/when goals are met, if they fail to make progress with conservative management in PT, if their level of progress plateaus, or if they do not maintain compliance with attendance or HEP. At this time, it is my clinical judgment that services are medically necessary. Plan of Care Frequency of Visits: 2 times per week Duration: 6 weeks Interventions: Therapeutic Exercise (73225), Neuromuscular Re-Education (02608), Manual Therapy (68642), Therapeutic/ Functional Activities (01025), and Hot/Cold Pack (02056) Rehab Potential: good Suicide Screen Signs and Symptoms of Abuse/Neglect: No Actions Taken: No Suicide Risk: Does the patient feel like ending their life today?No Actions Taken: No Patient Education Provided Pt was educated on the benefits of therapy and importance of compliance with sessions and HEP for rehabilitation. Pt was also educated on treatment diagnosis, POC, and frequency/duration of treatment. Robert Patel, SATHYA State License, [id number] documented in this encounter [facility] Diagnosis Iliopsoas bursitis of right hip- Primary [facility] Diagnosis Iliopsoas bursitis of right hip- Primary [facility] Diagnosis Iliopsoas bursitis of right hip- Primary [facility] Diagnosis Iliopsoas bursitis of right hip- Primary [facility] Diagnosis Iliopsoas bursitis of right hip- Primary [facility] Diagnosis Iliopsoas bursitis of right hip- Primary [facility] Summary Purpose Family History No Family History Records FoundNo Family History Records FoundNo Family History Records FoundNo Family History Records FoundNo Family History Records FoundNo Family History Records Found Advance Directives No Advanced Directives Records FoundNo Advanced Directives Records FoundNo Advanced Directives Records FoundNo Advanced Directives Records FoundNo Advanced Directives Records FoundNo Advanced Directives Records Found Additional Source Comments INFORMATION SOURCE (unrecogn ized section and content) DATE CREATED AUTHOR AUTHOR'S ORGANIZ ATION 11/27/2017 [facility] DATE CREATED AUTHOR AUTHOR'S ORGANIZ ATION 01/14/2019 [facility] DATE CREATED AUTHOR AUTHOR'S ORGANIZ ATION 06/29/2021 [facility] DATE CREATED AUTHOR AUTHOR'S ORGANIZ ATION 01/26/2023 [facility] DATE CREATED AUTHOR AUTHOR'S ORGANIZ ATION 03/02/2023 [facility] Reason for Visit (unrecogniz ed section and content) Specialty Diagnoses / Procedures Referred By Pedro duval Referred To Contact Rehabilitation Diagnoses Iliopsoas bursitis of right hip Loy Asif MD [address] [address] [facility] [place] [address] [address] [place] [address] Referral ID Status Reason Start Date Expiration Date V isits Requested Visits Authorized [id number] Authorized 06/28/2021 06/28/2022 9 199 Care Teams (unrecognized sec tion and content) Provider Relations Representative Relationship Specialty Start Date End Date Justo Craig Chi, MD [address] [facility] [address] [place], [place] [phone] PCP - General Geriatric Medicine 02/02/19 Provider Relations Representative Relationship Specialty Start Date End Date Justo Craig Chi, MD [address] [facility] [address] [place], [place] [id number] PCP - General Geriatric Medicine 02/02/19 Provider Relations Representative Relationship Specialty Start Date End Date Justo Craig Chi, MD [address] [facility] [address] [place], [place] [phone] PCP - General Geriatric Medicine 02/02/19 Provider Relations Representative Relationship Specialty Start Date End Date Justo Craig Chi, MD [address] [facility] [address] [place] [address] PCP - General Geriatric Medicine 02/02/19 Provider Relations Representative Relationship Specialty Start Date End Date Justo Craig Chi, MD [address] [facility] [address] [place], [place] [phone] PCP - General Geriatric Medicine 02/02/19 FOR RECORDS PERTAINING TO PATIENTS WHO ARE OR HAVE BEEN ENROLLED IN A CHEMICAL DEPENDENCY/SUBSTANCEABUSE PROGRAM, SOME INFORMATION MAY BE OMITTED. This clinical summary was aggregated from multiple sources. Caution should be exercised in using it in the provision of clinical care. This summary normalizes information from multiple sources, and as a consequence, information in this document may materially change the coding, format and clinical context of patient data. In addition, data may be omitted in some cases. CLINICAL DECISIONS SHOULD BE BASED ON THE PRIMARY CLINICAL RECORDS. [facility]. provides no warranty or guarantee of the accuracy or completeness of information in this document.
== END | disposition home or self-care (01) ==
LOC: MRI 16:19
PROVIDERS: PCP Family Medicine Geriatric Medicine; Referring Provider Anesthesiology Pain Medicine; Visit Provider Anesthesiology Pain Medicine
DX: M54.12 Radiculopathy, cervical region (principal)
CPT/HCPCS: 72141

== ENCOUNTER 2023-04-22 12:00 | Outpatient (RCR) | payer MEDICARE, OTHER, SELFPAY ==
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
--- NOTE | 2023-04-24 12:34 | HP.PTDCSUM ---
Discharge Summary D/C summary: It has been my pleasure to treat RADHA HOOKS referred by Dr. 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 Discharge Date: 04/24/23 Please see the following information for a summary of their discharge status. Subjective Subjective: NO CHANGE. PATIENT REPORTS THE PAIN JUST DOESN'T GO AWAY. STATES SHE STILL GETS A LOT OF PAIN. PATIENT REPORTS THAT THE PAIN AT THE BASE OF HER HEAD HAS IMPROVED SINCE SHE STARTED PT BUT OVER-ALL SHE DOESN'T FEEL LIKE SHE IS A WHOLE LOT BETTER. STATES SHE HAD ANOTHER MASSAGE YESTERDAY AND SHE WAS REALLY SORE WHEN SHE WENT HOME FROM THAT. TYPICALLY IT GETS A LITTLE BETTER AFTER MASSAGE THEN IT GOES RIGHT BACK TO WEHRE IT WAS. Pain NECK: Pain Intensity (Out of 10): 4 L UE: Pain Intensity (Out of 10): 6 L SHLD BLADE: Pain Intensity (Out of 10): 5 OCCIPUT: Pain Intensity (Out of 10): 0 Overall Improvement % Improvement: 15 Objective Objective/Function: PATIENT WAS SEEN TODAY FOR RE-ASSESSMENT OF PROGRESS TOWARD THE SET PT GOALS AND THE NEED FOR FURTHER PHYSICAL THERAPY VS READINESS FOR DISCHARGE. UPON EXAM TODAY THERE ARE LITTLE TO NO OBJECTIVE CHANGES SINCE INITIAL EVAL. SHE IS NOT SENSATIVE/TENDER WITH PALPATION IN THE L SHLD AND SCAPULAR REGIONS TODAY COMPARED TO INTIAL EVAL BUT OTHERWISE ALL MEASUREMENTS ARE SIMILAR TO INITIAL EVAL. PATIENT IS AGREEABLE TO DISCHARGE. Goals Goal 1:: DECREASE C/O HEAD, NECK AND L UE PAIN BY AT LEAST 25% TO EASE ADL'S. Goal Progress: NOT MET Goal 2:: IMPROVE NECK OSWESTRY SCORE BY AT LEAST 5 POINTS TO DEMONSTRATE IMRPOVED FUNCTION Goal Progress: NOT MET Goal 3:: PATIENT WILL BE INDEP WITH A HEP FOR CONTINUED IMPROVEMENT ONCE FORMAL PHYSICAL THERAPY CONCLUDES Goal Progress: HEP BUT NOT SIG IMRPOVING Plan Plan: D/C DUE TO HEP AND FOLLOW UP WITH DR. BRADSHAW. D/C Information d/c sentence: If there are questions or concerns regarding this patient's physical therapy, please feel free to call me at [phone]. Thank you for the referral of this patient. Sincerely, Naomi Chen, PT, Cert MDT Balance/Gait/Functional tests Balance/Special Test Scores Oswestry Neck Score: 23 Improvement % Improvement: 15
== END 2023-04-22 19:00 | disposition home or self-care (01) ==
LOC: PT 12:00
PROVIDERS: PCP Family Medicine Geriatric Medicine; Referring Provider Orthopaedic Surgery Orthopaedic Surgery of the Spine; Visit Provider Orthopaedic Surgery Orthopaedic Surgery of the Spine
DX: M50.121 Cervical disc disorder at C4-C5 level with radiculopathy (principal)
CPT/HCPCS: 97162; 97530

== ENCOUNTER → 2023-05-26 | Outpatient (CLI) | payer MEDICARE, OTHER, SELFPAY ==
[2023-05-26 12:47] LABS: Absolute Lymphocyte Count 2.68 X10^3/uL (0.83-4.51); Absolute Neutrophil Count 4.8 X10^3/uL (2.0-7.7); Basophil# 0.03 X10^3/uL; Basophil% 0.4 % (0-1); Eosinophil# 0.07 X10^3/uL; Eosinophils% 0.9 % (0-5); Hematocrit 41.6 % (37-47); Hemoglobin 13.5 g/dL (12.0-15.0); Lymphocyte # 2.68 X10^3/ul (0.83-4.51); Lymphocyte % 32.9 % (19-41); Mean Corp Hgb Conc 32.5 g/dL (32-36); Mean Corpuscular Hgb 31.1 pg (27.0-32.0); Mean Corpuscular Volume 95.9 fL (81-99); Monocyte% 7.4 % (0-10); NRBC Flagged by Analyzer 0 % (0-5); Neutrophil # 4.75 X10^3/uL (2.7-7.7); Neutrophil % 58.3 % (47-70); Platelet Count 259 K/mm3 (150-450); RBC Distribution Width CV 13.5 % (11.6-14.6); RBC Distribution Width SD 47.2 fl (35.1-43.9); Red Blood Count 4.34 M/mm3 (4.2-5.4); White Blood Count 8.1 K/mm3 (4.4-11.0)
[2023-05-26 13:24] LABS: Vitamin D,25 Hydroxy 53.4 ng/mL
[2023-05-26 13:28] LABS: ALB/GLOB Ratio 0.9 RATIO (0.9-2.4); AST(SGOT) 18 U/L (15-37); Alanine Aminotransfer ALT/SGPT 28 U/L (13-56); Albumin, Serum 3.4 g/dL (3.2-5.0); Alkaline Phosphatase 51 U/L (45-117); Anion Gap 4 (5-15); BUN 17 mg/dL (7-18); BUN/Creat Ratio 19.6 RATIO (10-20); Calcium,Total 9.4 mg/dL (8.5-10.1); Chloride 109 mmol/L (98-107); Creatinine, Serum 0.87 mg/dL (0.55-1.02); EST Glomerular Filtration Rate 68 mL/min (>60); Est Glom Filt Rate - Afr Amer 82 mL/min (>60); Globulin 3.6 g/dL (2.2-4.2); Glucose 101 mg/dL (74-106); Sodium Level 141 mmol/L (136-145); Thyroid Stim Hormone (TSH) 0.72 uIU/mL (0.358-3.74)
== END | disposition home or self-care (01) ==
LOC: POLAB3 11:37
PROVIDERS: PCP Family Medicine Geriatric Medicine; Visit Provider Family Medicine Geriatric Medicine
DX: R53.83 Other fatigue (principal); L40.59 Other psoriatic arthropathy; E55.9 Vitamin D deficiency, unspecified; M79.7 Fibromyalgia; Z79.899 Other long term (current) drug therapy
CPT/HCPCS: 36415; 80053; 82306; 84443; 85025

== ENCOUNTER → 2023-07-07 | Outpatient (CLI) | payer MEDICARE, OTHER, SELFPAY ==
--- NOTE | 2023-07-07 14:36 | BI_ITS ---
MAMMOGRAPHY - BILATERAL SCREENING REASON FOR EXAM: Female, 77 years old. Routine annual screening examination. PERTINENT HISTORY: Non-contributory. TECHNIQUE: Digital bilateral breast inez (3D mammographic acquisition) in the CC and MLO projections. 2-D mediolateral oblique (MLO) and craniocaudad (CC) views of both breasts were obtained. CAD: Full Field Digital Mammography with Computer Added Detection was performed. COMPARISON: Comparison is made with prior study dated July 10, 2021 and October 29, 2019. FINDINGS: Breast Composition: The breasts are almost entirely fatty. There are no dominant masses or suspicious calcifications. Stable small benign-appearing bilateral axillary lymph nodes. Stable bilateral retroareolar calcified nodules. No other significant abnormalities are identified. There has been no significant change since the prior study. BI/SCRN MAMM (CAD)W/INEZ BILAT IMPRESSION: Stable bilateral screening mammogram. Yearly follow-up mammogram recommended. (A) ASSESSMENT CATEGORY: BIRADS Category 2: Benign. A letter regarding these results will be sent to the patient by the facility within 30 days. Approximately 10% of breast cancers are not detected by mammography. A normal mammogram should not delay biopsy of a clinically suspicious abnormality. [id number] Electronically Signed: Arthur Taveras MD at 11:06 EDT ,
== END | disposition home or self-care (01) ==
LOC: OPBI 14:35
PROVIDERS: PCP Family Medicine Geriatric Medicine; Referring Provider Family Medicine Geriatric Medicine; Visit Provider Family Medicine Geriatric Medicine
DX: Z12.31 Encounter for screening mammogram for malignant neoplasm of breast (principal)
CPT/HCPCS: 77063; 77067

== ENCOUNTER → 2023-11-12 | Outpatient (CLI) | payer MEDICARE, OTHER, SELFPAY ==
[2023-11-12 14:22] LABS: Absolute Lymphocyte Count 2.63 X10^3/uL (0.83-4.51); Absolute Neutrophil Count 6.1 X10^3/uL (2.0-7.7); Basophil# 0.05 X10^3/uL; Basophil% 0.5 % (0-1); Eosinophil# 0.09 X10^3/uL; Eosinophils% 0.9 % (0-5); Hematocrit 40.8 % (37-47); Hemoglobin 13.2 g/dL (12.0-15.0); Lymphocyte # 2.63 X10^3/ul (0.83-4.51); Mean Corp Hgb Conc 32.4 g/dL (32-36); Mean Corpuscular Hgb 30.6 pg (27.0-32.0); Mean Corpuscular Volume 94.7 fL (81-99); Mean Platelet Vol. 10.2 fl (6.2-12.0); Monocyte# 0.88 X10^3/uL; NRBC Flagged by Analyzer 0 % (0-5); Neutrophil # 6.07 X10^3/uL (2.7-7.7); Neutrophil % 62.4 % (47-70); Platelet Count 270 K/mm3 (150-450); RBC Distribution Width CV 13.9 % (11.6-14.6); RBC Distribution Width SD 47.3 fl (35.1-43.9); Red Blood Count 4.31 M/mm3 (4.2-5.4); White Blood Count 9.7 K/mm3 (4.4-11.0)
[2023-11-12 14:52] LABS: ALB/GLOB Ratio 0.9 RATIO (0.9-2.4); AST(SGOT) 19 U/L (15-37); Alanine Aminotransfer ALT/SGPT 22 U/L (13-56); Albumin, Serum 3.2 g/dL (3.2-5.0); Alkaline Phosphatase 64 U/L (45-117); Anion Gap 8 (5-15); BUN 11 mg/dL (7-18); BUN/Creat Ratio 11.1 RATIO (10-20); Calcium,Total 9.1 mg/dL (8.5-10.1); Chloride 107 mmol/L (98-107); Creatinine, Serum 0.99 mg/dL (0.55-1.02); EST Glomerular Filtration Rate 58 mL/min (>60); Est Glom Filt Rate - Afr Amer 70 mL/min (>60); Globulin 3.5 g/dL (2.2-4.2); Glucose 95 mg/dL (74-106); Potassium 4.2 mmol/L (3.5-5.1); Protein, Total 6.7 g/dL (6.4-8.2); Sodium Level 141 mmol/L (136-145)
== END | disposition home or self-care (01) ==
PROVIDERS: PCP Family Medicine Geriatric Medicine; Referring Provider Internal Medicine Rheumatology; Visit Provider Internal Medicine Rheumatology
DX: L40.59 Other psoriatic arthropathy (principal); Z79.899 Other long term (current) drug therapy; M79.7 Fibromyalgia
CPT/HCPCS: 36415; 80053; 85025

== ENCOUNTER → 2023-11-26 | Outpatient (CLI) | payer MEDICARE, OTHER, SELFPAY ==
[2023-11-26 11:59] LABS: Thyroid Stim Hormone (TSH) 0.944 uIU/mL (0.358-3.740)
== END | disposition home or self-care (01) ==
LOC: POLAB3 11:18
PROVIDERS: PCP Family Medicine Geriatric Medicine; Visit Provider Family Medicine Geriatric Medicine
DX: R53.83 Other fatigue (principal); E55.9 Vitamin D deficiency, unspecified
CPT/HCPCS: 36415; 82306; 84443

== ENCOUNTER → 2024-01-07 | Outpatient (CLI) | payer MEDICARE, OTHER, SELFPAY ==
--- NOTE | 2024-01-07 12:05 | RAD_ITS ---
INDICATION: L HIP OA EXAMINATION/TECHNIQUE: X-RAY - XR Hip Unilateral with Pelvis when performed; 2-3 Views COMPARISON: November 24, 2019 FINDINGS: PELVIC BONES: No displaced fracture, destructive or sclerotic lesions. Note that overlapping bowel shadows may however obscure fine detail. Sacroiliac joints are unremarkable. No widening of the pubic symphysis. HIPS: There is slight narrowing of the left hip joint. There is a right hip prosthesis in place. No displaced fracture seen in this frontal view. SOFT TISSUES: No soft tissue swelling or gas. RAD/HIP, UNI W/ Pelvis 2-3 Views IMPRESSION: There is slight narrowing of the left hip joint. There is a right hip prosthesis in place. Electronically Signed: Mandeep Meeks DO at 8:34 EST ,
== END | disposition home or self-care (01) ==
LOC: RAD 11:54
PROVIDERS: PCP Family Medicine Geriatric Medicine; Referring Provider Anesthesiology Pain Medicine; Visit Provider Anesthesiology Pain Medicine
DX: M16.12 Unilateral primary osteoarthritis, left hip (principal)
CPT/HCPCS: 73502

== ENCOUNTER → 2024-01-30 | Outpatient (CLI) | payer MEDICARE, OTHER, SELFPAY ==
[2024-01-30 15:14] LABS: Absolute Lymphocyte Count 2.37 X10^3/uL (0.83-4.51); Absolute Neutrophil Count 4.5 X10^3/uL (2.0-7.7); Basophil# 0.04 X10^3/uL; Basophil% 0.5 % (0-1); Eosinophil# 0.11 X10^3/uL; Eosinophils% 1.4 % (0-5); Hematocrit 40.9 % (37-47); Hemoglobin 13.1 g/dL (12.0-15.0); Lymphocyte # 2.37 X10^3/ul (0.83-4.51); Mean Corpuscular Hgb 30.2 pg (27.0-32.0); Mean Corpuscular Volume 94.2 fL (81-99); Monocyte# 0.62 X10^3/uL; Monocyte% 8.1 % (0-10); NRBC Flagged by Analyzer 0 % (0-5); Neutrophil # 4.49 X10^3/uL (2.7-7.7); Neutrophil % 58.7 % (47-70); Platelet Count 264 K/mm3 (150-450); RBC Distribution Width SD 51.8 fl (35.1-43.9); Red Blood Count 4.34 M/mm3 (4.2-5.4); White Blood Count 7.7 K/mm3 (4.4-11.0)
[2024-01-30 15:42] LABS: AST(SGOT) 23 U/L (15-37); Alanine Aminotransfer ALT/SGPT 29 U/L (13-56); Albumin, Serum 3.5 g/dL (3.2-5.0); Alkaline Phosphatase 64 U/L (45-117); Anion Gap 4 (5-15); BUN 16 mg/dL (7-18); BUN/Creat Ratio 15.5 RATIO (10-20); Calcium,Total 9.7 mg/dL (8.5-10.1); Chloride 108 mmol/L (98-107); Creatinine, Serum 1.03 mg/dL (0.55-1.02); EST Glomerular Filtration Rate 55 mL/min (>60); Est Glom Filt Rate - Afr Amer 67 mL/min (>60); Globulin 3.6 g/dL (2.2-4.2); Glucose 89 mg/dL (74-106); Protein, Total 7.1 g/dL (6.4-8.2); Sodium Level 140 mmol/L (136-145)
== END | disposition home or self-care (01) ==
PROVIDERS: PCP Family Medicine Geriatric Medicine; Referring Provider Internal Medicine Rheumatology; Visit Provider Internal Medicine Rheumatology
DX: L40.59 Other psoriatic arthropathy (principal); Z79.899 Other long term (current) drug therapy; M79.7 Fibromyalgia
CPT/HCPCS: 36415; 80053; 85025

== ENCOUNTER → 2024-02-09 | Outpatient (CLI) | payer MEDICARE, OTHER, SELFPAY ==
--- NOTE | 2024-02-09 09:17 | MRI_ITS ---
STUDY: MRI LUMBAR SPINE WITHOUT CONTRAST REASON FOR EXAM: Female, 78 years old. POST LAMINECTOMY SYNDROME TECHNIQUE: Standardized fat and water weighted pulse sequences were obtained in the sagittal and axial planes. COMPARISON: November 18, 2008 FINDINGS: T12-L1: Normal endplates. Normal disc height, desiccation and normal morphology. Normal bilateral facet joints. Normal central canal and bilateral lateral recesses. Normal bilateral intervertebral neural foramina. Normal lumbar lordosis. There is no substantial scoliosis. Normal conus medullaris that terminates at T12-L1 L1-2: Normal endplates. Normal disc height, desiccation and normal morphology. Normal bilateral facet joints. Normal central canal and bilateral lateral recesses. Normal bilateral intervertebral neural foramina. L2-3: Grade 1 retrolisthesis Narrowed disc space with degenerative endplate changes and desiccation of disc with mild bulging disc osteophyte complex... Facet arthropathy and thickening of ligamenta flava. Mild narrowing of the central canal. Normal bilateral lateral recesses. Moderate bilateral neural foraminal stenosis. L3-4: Minimal grade 1 spondylolisthesis Normal endplates. Normal disc height, desiccation and mild bulging disc osteophyte complex. Asymmetric right facet arthropathy with thickening of ligamenta flava. Mild narrowing of central canal. Normal bilateral lateral recesses. Mild left neural foraminal encroachment and moderate narrowing on the right. L4-5: [Status post bilateral laminectomy Minimal grade 1 spondylolisthesis Normal endplates. Normal disc height, desiccation and minimal bulging disc osteophyte complex with tiny right paracentral disc protrusion.. Facet arthropathy more pronounced on the right. Normal central canal and bilateral lateral recesses. Mild left neural foraminal encroachment and mild to moderate narrowing on the right. L5-S1: Grade 1 spondylolisthesis Normal endplates. Normal disc height, desiccation and minimal bulging disc osteophyte complex. Facet arthropathy and thickening of ligamenta flava. Normal central canal and bilateral lateral recesses. Normal bilateral intervertebral neural foramina. Normal visualized sacral ala. Normal visualized paraspinous soft tissue structures. Postsurgical changes are new finding since prior exam The spinal stenosis at L2-3 has increased since prior study. MRI/Spine Lumbar (Routine) IMPRESSION: Spondylosis and multilevel spinal stenosis secondary to disc disease and bony hypertrophy most pronounced at L2-3. Other findings as above Electronically Signed: Gary Talbert MD at 17:18 EST ,
== END | disposition home or self-care (01) ==
LOC: MRI 09:14
PROVIDERS: PCP Family Medicine Geriatric Medicine; Referring Provider Anesthesiology Pain Medicine; Visit Provider Anesthesiology Pain Medicine
DX: M96.1 Postlaminectomy syndrome, not elsewhere classified (principal)
CPT/HCPCS: 72148

== ENCOUNTER → 2024-04-19 | Outpatient (CLI) | payer MEDICARE, OTHER, SELFPAY ==
[2024-04-19 13:29] LABS: Amphetamine Urine NEGATIVE (<1000 ng/mL); Barbiturate Urine NEGATIVE (< 200 ng/mL); Benzodiazepine Urine NEGATIVE (< 200 ng/mL); Cocaine Urine NEGATIVE (< 300 ng/mL); Ecstacy Urine NEGATIVE (< 500 ng/mL); Methadone Urine NEGATIVE (< 300 ng/mL); Opiates Urine POSITIVE (< 300 ng/mL); PCP Urine NEGATIVE (< 25 ng/mL); THC Urine NEGATIVE (< 50 ng/mL); Vista UDS pH Range 6
== END | disposition home or self-care (01) ==
PROVIDERS: PCP Family Medicine Geriatric Medicine; Referring Provider Anesthesiology Pain Medicine; Visit Provider Anesthesiology Pain Medicine
DX: F11.20 Opioid dependence, uncomplicated (principal)
CPT/HCPCS: 80307

== ENCOUNTER 2024-05-26 13:36 | Outpatient (CLI) | payer MEDICARE, OTHER, SELFPAY ==
[2024-05-26 14:33] LABS: Absolute Lymphocyte Count 2.18 X10^3/uL (0.83-4.51); Absolute Neutrophil Count 5.3 X10^3/uL (2.0-7.7); Basophil# 0.04 X10^3/uL; Basophil% 0.5 % (0-1); Eosinophil# 0.08 X10^3/uL; Eosinophils% 0.9 % (0-5); Hematocrit 39.6 % (37-47); Hemoglobin 12.9 g/dL (12.0-15.0); Lymphocyte # 2.18 X10^3/ul (0.83-4.51); Lymphocyte % 24.9 % (19-41); Mean Corp Hgb Conc 32.6 g/dL (32-36); Mean Corpuscular Hgb 30.5 pg (27.0-32.0); Mean Corpuscular Volume 93.6 fL (81-99); Mean Platelet Vol. 9.9 fl (6.2-12.0); Monocyte# 1.08 X10^3/uL; Monocyte% 12.3 % (0-10); NRBC Flagged by Analyzer 0 % (0-5); Neutrophil # 5.34 X10^3/uL (2.7-7.7); Neutrophil % 61.1 % (47-70); Platelet Count 279 K/mm3 (150-450); RBC Distribution Width CV 14.9 % (11.6-14.6); RBC Distribution Width SD 50.8 fl (35.1-43.9); Red Blood Count 4.23 M/mm3 (4.2-5.4); White Blood Count 8.8 K/mm3 (4.4-11.0)
[2024-05-26 15:19] LABS: ALB/GLOB Ratio 1.3 RATIO (0.9-2.4); AST(SGOT) 19 U/L (<=31); Alanine Aminotransfer ALT/SGPT 16 U/L (<=34); Albumin, Serum 3.8 g/dL (3.4-4.8); Alkaline Phosphatase 59 U/L (35-104); Anion Gap 9 (5-15); BUN 13 mg/dL (4-19); BUN/Creat Ratio 14.1 RATIO (10-20); Calcium,Total 9.1 mg/dL (7.6-11.0); Carbon Dioxide 23.7 mmol/L (21.0-32.0); Chloride 107 mmol/L (98-108); Creatinine, Serum 0.92 mg/dL (0.70-1.20); EST Glomerular Filtration Rate 64 (>60); Glucose 90 mg/dL (70-99); Potassium 4.2 mmol/L (3.3-5.1); Protein, Total 6.9 g/dL (5.9-8.4); Sodium Level 140 mmol/L (133-145); Total Bilirubin 0.17 mg/dL (0.00-1.30)
[2024-05-26 18:15] LABS: Thyroid Stim Hormone (TSH) 0.964 uIU/mL (0.300-4.200); Vitamin D,25 Hydroxy 47.1 ng/mL (30-100)
== END 2024-05-26 23:59 | disposition home or self-care (01) ==
LOC: LAB 13:39
PROVIDERS: PCP Family Medicine Geriatric Medicine; Referring Provider Family Medicine Geriatric Medicine; Visit Provider Family Medicine Geriatric Medicine
DX: E55.9 Vitamin D deficiency, unspecified (principal); R53.83 Other fatigue
CPT/HCPCS: 36415; 80053; 82306; 84443; 85025

== ENCOUNTER → 2024-08-18 | Outpatient (CLI) | payer MEDICARE, OTHER, SELFPAY ==
--- NOTE | 2024-08-18 15:20 | RAD_ITS ---
PROCEDURE: CERV SPINE 2 OR 3 VIEWS 08/18/2024 REASON FOR EXAM: RADICULOPATHY, CERVICAL REGION TECHNIQUE: CERV SPINE 2 OR 3 VIEWS COMPARISON: 03/13/2023. FINDINGS: Grade 1 anterolisthesis of C3 on C4 measuring 4.2 mm. Unremarkable anterior cervical fusion at C5, C6 and C7 levels. There are diffuse spondylotic changes. Findings are demonstrated to by diffuse disc space narrowing, osteophyte formation and degenerative endplate sclerosis. There is diffuse facet joint arthropathy with secondary bilateral neural foramina narrowing. No fracture or dislocation is seen. No aggressive lytic or blastic bony lesion is noted. RAD/Cerv Spine 2 or 3 Views IMPRESSION: Spondylosis, mildly progressed. Unremarkable metallic hardware. [facility]
== END | disposition home or self-care (01) ==
PROVIDERS: PCP Family Medicine Geriatric Medicine; Referring Provider Anesthesiology Pain Medicine; Visit Provider Anesthesiology Pain Medicine
DX: M54.12 Radiculopathy, cervical region (principal)
CPT/HCPCS: 72040

== ENCOUNTER → 2024-09-08 | Outpatient (CLI) | payer MEDICARE, OTHER, SELFPAY ==
--- NOTE | 2024-09-08 13:26 | MRI_ITS ---
PROCEDURE: SPINE LUMBAR (ROUTINE) 09/08/2024 REASON FOR EXAM: RADICULOPATHY TECHNIQUE: SPINE LUMBAR (ROUTINE) COMPARISON: 02/09/2024 FINDINGS: Normal lumbar vertebral body height without compression deformity. Retrolisthesis of L2 upon L3 again noted. Normal conus. No retroperitoneal abnormality identified. At L1-2, there is no spinal stenosis. At L2-3 there is retrolisthesis and osteophytic spurring with disc bulging producing stable [id number] canal narrowing. Inferior foraminal narrowing on both sides. At L3-4, stable mild canal narrowing from concentric annular bulge. At L4-5, stable canal narrowing from annular bulging and facet arthrosis without foraminal compression. At L5-S1, facet arthrosis is seen with mild annular bulging. MRI/Spine Lumbar (Routine) IMPRESSION: Overall, no interval change compared to the prior study. [facility]
--- NOTE | 2024-09-08 13:26 | MRI_ITS ---
PROCEDURE: SPINE LUMBAR (ROUTINE) 09/08/2024 REASON FOR EXAM: RADICULOPATHY TECHNIQUE: SPINE LUMBAR (ROUTINE) COMPARISON: 02/09/2024 FINDINGS: Normal lumbar vertebral body height without compression deformity. Retrolisthesis of L2 upon L3 again noted. Normal conus. No retroperitoneal abnormality identified. At L1-2, there is no spinal stenosis. At L2-3 there is retrolisthesis and osteophytic spurring with disc bulging producing stable [id number] canal narrowing. Inferior foraminal narrowing on both sides. At L3-4, stable mild canal narrowing from concentric annular bulge. At L4-5, stable canal narrowing from annular bulging and facet arthrosis without foraminal compression. At L5-S1, facet arthrosis is seen with mild annular bulging. MRI/Spine Lumbar (Routine) IMPRESSION: Overall, no interval change compared to the prior study. Reading [facility]
== END | disposition home or self-care (01) ==
LOC: MRI 13:09
PROVIDERS: PCP Family Medicine Geriatric Medicine; Referring Provider Anesthesiology Pain Medicine; Visit Provider Anesthesiology Pain Medicine
DX: M54.16 Radiculopathy, lumbar region (principal); M54.12 Radiculopathy, cervical region
CPT/HCPCS: 72148

== ENCOUNTER → 2024-10-27 | Outpatient (CLI) | payer MEDICARE, OTHER, SELFPAY ==
[2024-10-27 18:08] LABS: Hematocrit 38.4 % (37-47); Hemoglobin 12.4 g/dL (12.0-15.0); Immature Granulocytes Count 0.020 X10^3/uL (0.0-0.0); Mean Corp Hgb Conc 32.3 g/dL (32-36); Mean Corpuscular Volume 91.6 fL (81-99); Mean Platelet Vol. 10.5 fl (6.2-12.0); NRBC Flagged by Analyzer 0 % (0-5); Platelet Count 270 K/mm3 (150-450); RBC Distribution Width CV 15.7 % (11.6-14.6); RBC Distribution Width SD 50.8 fl (35.1-43.9); Red Blood Count 4.19 M/mm3 (4.2-5.4); White Blood Count 9.0 K/mm3 (4.4-11.0)
[2024-10-27 18:24] LABS: AST(SGOT) 20 U/L (<=31); Alanine Aminotransfer ALT/SGPT 15 U/L (<=34); Albumin, Serum 3.7 g/dL (3.4-4.8); Alkaline Phosphatase 63 U/L (35-104); Anion Gap 10 (5-15); BUN 15 mg/dL (4-19); BUN/Creat Ratio 16.1 RATIO (10-20); Calcium,Total 9.8 mg/dL (7.6-11.0); Carbon Dioxide 25.0 mmol/L (21.0-32.0); Chloride 105 mmol/L (98-108); Globulin 3.0 g/dL (2.2-4.2); Glucose 114 mg/dL (70-99); Potassium 4.1 mmol/L (3.3-5.1)
== END | disposition home or self-care (01) ==
LOC: MTLAB 14:22
PROVIDERS: PCP Family Medicine Geriatric Medicine; Referring Provider Internal Medicine Rheumatology; Visit Provider Internal Medicine Rheumatology
DX: L40.59 Other psoriatic arthropathy (principal); Z79.899 Other long term (current) drug therapy; M79.7 Fibromyalgia; L40.8 Other psoriasis
CPT/HCPCS: 36415; 80053; 85025

== ENCOUNTER → 2024-11-23 | Outpatient (CLI) | payer MEDICARE, OTHER, SELFPAY ==
[2024-11-23 13:16] LABS: Hematocrit 42.2 % (37-47); Hemoglobin 13.8 g/dL (12.0-15.0); Immature Granulocytes Count 0.040 X10^3/uL (0.0-0.0); Mean Corp Hgb Conc 32.7 g/dL (32-36); Mean Corpuscular Volume 92.5 fL (81-99); Mean Platelet Vol. 9.6 fl (6.2-12.0); NRBC Flagged by Analyzer 0 % (0-5); Platelet Count 321 K/mm3 (150-450); RBC Distribution Width CV 15.9 % (11.6-14.6); RBC Distribution Width SD 52.8 fl (35.1-43.9); Red Blood Count 4.56 M/mm3 (4.2-5.4); White Blood Count 12.6 K/mm3 (4.4-11.0)
[2024-11-23 14:32] LABS: AST(SGOT) 21 U/L (<=31); Alanine Aminotransfer ALT/SGPT 20 U/L (<=34); Albumin, Serum 4.0 g/dL (3.4-4.8); Alkaline Phosphatase 70 U/L (35-104); Anion Gap 10 (5-15); BUN 18 mg/dL (4-19); BUN/Creat Ratio 17.6 RATIO (10-20); Calcium,Total 9.8 mg/dL (7.6-11.0); Carbon Dioxide 25.0 mmol/L (21.0-32.0); Chloride 102 mmol/L (98-108); Globulin 3.2 g/dL (2.2-4.2); Glucose 150 mg/dL (70-99); Potassium 4.2 mmol/L (3.3-5.1); Vitamin D,25 Hydroxy 52.9 ng/mL (30-100)
== END | disposition home or self-care (01) ==
LOC: POLAB3 13:00
PROVIDERS: PCP Family Medicine Geriatric Medicine; Visit Provider Family Medicine Geriatric Medicine
DX: E55.9 Vitamin D deficiency, unspecified (principal); E03.9 Hypothyroidism, unspecified; R53.83 Other fatigue
CPT/HCPCS: 36415; 80053; 82306; 84443; 85025

== ENCOUNTER 2024-12-27 08:00 | Day surgery (SDC) | payer MEDICARE, OTHER, SELFPAY ==
--- NOTE | 2024-12-23 15:52 | PAT.ANESEVAL ---
Pre-Assessment Diagnosis/Proposed Procedure Planned Operative Procedure(s): COLONOSCOPY Anesthesia History Anesthesia History - analysis mgr: Anesthesia History - analysis mgr Hx Hospitalization No 12/23/24 09:32 Any Problems With Anesthesia Yes: NAUSEA 12/23/24 09:32 Cholinesterase deficiency No 12/23/24 09:32 You/Your Family Experience No 12/23/24 09:32 fever (hyperthermia) with Relationship Recent Exposure to Contagious No 06/07/20 10:38 Disease Does patient have nerve No 12/23/24 09:32 stimulator Patient instructed to have device shut off --Does patient have Pacemaker or ICD? When Was Last Pacemaker Check QUESTION #4 FULL TEXT: You/Your Family Experience fever (hyperthermia) with Anesthesia Last Oral Intake Last Oral intake: Last Oral Intake NPO since Meds taken in AM with sips of water? Meds patient instructed to take am of surgery PONV PONV - analysis mgr: PONV - analysis mgr Female Yes 12/23/24 09:32 HX of Motion Sickness No 12/23/24 09:32 HX of N/V After Surgery Yes 12/23/24 09:32 Non-Smoker No 12/23/24 09:32 Duration of Surgery greater No 12/23/24 09:32 than 60 minutes Number of Risk Factors 2 12/23/24 09:32 PONV Score Moderate Risk 12/23/24 09:32 Height & Weight Height & Weight: Anesthesia: Height & Weight Height 5 ft 6 in 12/03/24 13:40 Respiratory Assessment Respiratory Assessment - analysis mgr: Respiratory Tract Infection Hx - analysis mgr Hx Respiratory Tract Infection No 12/23/24 09:32 STOP Sleep Apnea STOP Sleep Apnea - analysis mgr: STOP Sleep Apnea - analysis mgr Hx Hypertension No 12/23/24 09:32 Hx Sleep Apnea No 12/23/24 09:32 CPAP BIPAP Do you snore loudly (louder No 12/23/24 09:32 than talking or can be heard Do you often feel tired/ No 12/23/24 09:32 fatigued/ sleepy during daytime? Has anyone observed you stop No 12/23/24 09:32 breathing during sleep? STOP Results Negative 12/23/24 09:32 QUESTION #5 FULL TEXT : Do you snore loudly (louder than talking or can be heard through closed doors)? Tobacco Use History Tobacco Use History - analysis mgr: Tobacco Use History - analysis mgr Tobacco Use Smoking Status Former smoker 12/23/24 09:32 Hx Tobacco Use No 12/23/24 09:32 Years Smoking Packs Smoked per Day Smoking Cessation Date was No - quit smoking greater 12/23/24 09:32 within the last 15 years than 15 years ago Hx Smoking Cessation Date 10/02/89 12/23/24 09:32 Hx Smoking Cessation Counseling Hematologic Medial History Hematologic Hx - analysis mgr: Hematologic Medical Hx - wrist hemmer Hx of Blood Transfusion No 12/23/24 09:32 Hx of Transfusion in last 3 No 12/23/24 09:32 Months Date of Last Transfusion (if within last 3 months) Ever experience any problems No 12/23/24 09:32 with transfusion(s)? Specify any problems Hx of Preganancy in last 3 No 12/23/24 09:32 Months Nurse Filling Out Transfusion VCHRISTIN 12/23/24 09:32 & Questions: Date: 12/23/24 12/23/24 09:32 Time: 09:34 12/23/24 09:32 Patient unable to answer at this time (ie. confused, unrespo /Reproduction History /Reproductive History - analysis mgr: /Reproductive Hx- analysis mgr Hx Now No 12/23/24 09:32 Gestational Age (in weeks): EDC: Hx Hx Para Hx Section SAB No 12/23/24 09:32 [facility] Medical History (Updated 12/23/24 @ 09:32 by Debbie Jean Baptiste) Wears glasses Post-menopausal History of steroid therapy Thyroid disease Psoriatic arthritis Arthritis Injury of head and neck Former smoker Fibromyalgia History of echocardiogram Hx of colonic polyps Hypothyroidism Back pain Home Medications ?Medication ?Instructions ?Recorded ?Last Taken ?Type duloxetine 60 mg capsule,delayed 60 mg PO BID 11/10/19 Unknown History release trazodone 150 mg tablet 75 mg PO QHS 11/10/19 Unknown History buprenorphine 5 mcg/hour weekly 1 patch transdermal .Q WEEK 03/13/23 Unknown History transdermal patch hydroxychloroquine 200 mg tablet 200 mg PO BID 03/13/23 Unknown History levothyroxine 100 mcg tablet 100 mcg PO DAILY 03/13/23 Unknown History acyclovir 400 mg tablet 400 mg PO BID 12/03/24 Unknown History cholecalciferol (vitamin D3) 125 125 mcg PO QDAY 12/03/24 Unknown History mcg (5,000 unit) capsule folic acid 1 mg tablet 1 mg PO BID 12/03/24 Unknown History leucovorin calcium 25 mg tablet 25 mg PO QWEEK 12/03/24 Unknown History methotrexate sodium 2.5 mg tablet 20 mg PO QWEEK 12/03/24 Unknown History omega-3 fatty acids 1,000 mg 1,000 mg PO QDAY 12/03/24 Unknown History capsule hydrocortisone acetate 25 mg 25 mg [place] BID 10 days #20 ea 12/06/24 Unknown Rx rectal suppository gabapentin 600 mg tablet 600 mg PO TID 12/23/24 Unknown History hydrocodone-acetaminophen 5-325mg 1 tab PO BID PRN PRN pain 12/23/24 Unknown History 5mg-325mg prednisone 10 mg tablet 10 mg PO PRN 12/23/24 Unknown History Allergy/AdvReac Type Severity Reaction Status Date / Time No Known Allergies Allergy Verified 12/23/24 09:16 Family History (Updated 12/03/24 @ 13:39 by Neda Rankin) Mother Colon cancer dx in her 80's Surgical History (Updated 12/23/24 @ 09:32 by Debbie Jean Baptiste) Hx of surgical procedure Hx of fusion of cervical spine History of appendectomy History of hip replacement Total knee replacement status H/O thyroidectomy Social History household members: spouse Smoking Status: Former smoker alcohol intake: never Audit: Pertinent Findings Pertinent Findings EKG Perinent findings: November 17, 2019. Sinus rhythm with PACs. Nonspecific T wave abnormality. Echo (EF%) pertinent findings: September 03, 2019. EF of 65%. Normal valves. Recommendation Anesthesia Recommendation Anesthesia recommendation: OPTIMIZED for anesthesia
--- NOTE | 2024-12-27 08:09 | PCM.PRE.AN2 ---
ASA Classification* ASA Classification ASA Classification: 2 Assessment & Plan Anesthesia* Anesthesia Assessment Anesthesia Assessment: Discussed sedation and/or anesthesia options, risks, benefits, and alternatives with patient/parents/legal guardian/POA. Questions invited. The patient/parents/legal guardian/POA seems to understand and agrees to proceed with anesthesia plan. Reviewed the physical assessment, medical history, allergy history and patient home medications list prior to surgery/procedure/anesthetic and documented any changes. Performed airway and anesthesia risk assessments. Anesthesia Type Anesthesia Type: MAC Anesthesia Focused Assessment* Airway Assessment Mouth opens: >3 cm Mallampati Score: II Labs Anesthesia Preop lab: CBC WBC, (4.4-11.0) 12.6 K/mm3 H 11/23/24, 13:00 RBC, (4.2-5.4) 4.56 M/mm3 11/23/24, 13:00 Hgb, (12.0-15.0) 13.8 g/dL 11/23/24, 13:00 Hct, (37-47) 42.2 % 11/23/24, 13:00 Plt Count, (150-450) 321 K/mm3 11/23/24, 13:00 CHEMISTRY Potassium, (3.3-5.1) 4.2 mmol/L 11/23/24, 13:00 Sodium, (133-145) 137 mmol/L 11/23/24, 13:00 Magnesium, (1.6-2.6) 2.0 mg/dL 11/11/19, 11:27 BUN, (4-19) 18 mg/dL 11/23/24, 13:00 Creatinine, (0.70-1.20) 1.04 mg/dL 11/23/24, 13:00 Glucose, (70-99) 150 mg/dL H 11/23/24, 13:00 POC Glucose, (70-110) 111 mg/dL H 11/24/19, 15:36 TSH, (0.300-4.200) 1.000 uIU/mL 11/23/24, 13:00 COAG PT, (11.7-14.9) 11.5 SECONDS L 03/21/16, 12:16 Pre-Assessment Diagnosis/Proposed Procedure Planned Operative Procedure(s): COLONOSCOPY Anesthesia History Anesthesia History - patternmaker sample: Anesthesia History - patternmaker sample Hx Hospitalization No 12/23/24 09:32 Any Problems With Anesthesia Yes: NAUSEA 12/23/24 09:32 Cholinesterase deficiency No 12/23/24 09:32 You/Your Family Experience No 12/23/24 09:32 fever (hyperthermia) with Relationship Recent Exposure to Contagious No 06/07/20 10:38 Disease Does patient have nerve No 12/23/24 09:32 stimulator Patient instructed to have device shut off --Does patient have Pacemaker or ICD? When Was Last Pacemaker Check QUESTION #4 FULL TEXT: You/Your Family Experience fever (hyperthermia) with Anesthesia Last Oral Intake Last Oral intake: Last Oral Intake NPO since Meds taken in AM with sips of water? Meds patient instructed to take am of surgery PONV PONV - patternmaker sample: PONV - patternmaker sample Female Yes 12/23/24 09:32 HX of Motion Sickness No 12/23/24 09:32 HX of N/V After Surgery Yes 12/23/24 09:32 Non-Smoker No 12/23/24 09:32 Duration of Surgery greater No 12/23/24 09:32 than 60 minutes Number of Risk Factors 2 12/23/24 09:32 PONV Score Moderate Risk 12/23/24 09:32 Height & Weight Height & Weight: Anesthesia: Height & Weight Height 5 ft 6 in 12/03/24 13:40 Respiratory Assessment Respiratory Assessment - patternmaker sample: Respiratory Tract Infection Hx - patternmaker sample Hx Respiratory Tract Infection No 12/23/24 09:32 STOP Sleep Apnea STOP Sleep Apnea - patternmaker sample: STOP Sleep Apnea - patternmaker sample Hx Hypertension No 12/23/24 09:32 Hx Sleep Apnea No 12/23/24 09:32 CPAP BIPAP Do you snore loudly (louder No 12/23/24 09:32 than talking or can be heard Do you often feel tired/ No 12/23/24 09:32 fatigued/ sleepy during daytime? Has anyone observed you stop No 12/23/24 09:32 breathing during sleep? STOP Results Negative 12/23/24 09:32 QUESTION #5 FULL TEXT : Do you snore loudly (louder than talking or can be heard through closed doors)? Tobacco Use History Tobacco Use History - patternmaker sample: Tobacco Use History - patternmaker sample Tobacco Use Smoking Status Former smoker 12/23/24 09:32 Hx Tobacco Use No 12/23/24 09:32 Years Smoking Packs Smoked per Day Smoking Cessation Date was No - quit smoking greater 12/23/24 09:32 within the last 15 years than 15 years ago Hx Smoking Cessation Date 10/02/89 12/23/24 09:32 Hx Smoking Cessation Counseling Hematologic Medial History Hematologic Hx - patternmaker sample: Hematologic Medical Hx - credit card interviewer Hx of Blood Transfusion No 12/23/24 09:32 Hx of Transfusion in last 3 No 12/23/24 09:32 Months Date of Last Transfusion (if within last 3 months) Ever experience any problems No 12/23/24 09:32 with transfusion(s)? Specify any problems Hx of Preganancy in last 3 No 12/23/24 09:32 Months Nurse Filling Out Transfusion VCHRISTIN 12/23/24 09:32 & Questions: Date: 12/23/24 12/23/24 09:32 Time: 09:34 12/23/24 09:32 Patient unable to answer at this time (ie. confused, unrespo /Reproduction History /Reproductive History - patternmaker sample: /Reproductive Hx- patternmaker sample Hx Now No 12/23/24 09:32 Gestational Age (in weeks): EDC: Hx Hx Para Hx Section SAB No 12/23/24 09:32 Active Medications Active Medications: Current Medications Generic Name Dose Route Start Last Admin Trade Name Freq PRN Reason Stop Dose Admin Lactated Ringer's 1,000 mls @ 15 mls/hr 12/27/24 08:15 IV .Q48H CHELI PFSH Medical History Wears glasses Post-menopausal History of steroid therapy Thyroid disease Psoriatic arthritis Arthritis Injury of head and neck Former smoker Fibromyalgia History of echocardiogram Hx of colonic polyps Hypothyroidism Back pain Home Medications ?Medication ?Instructions ?Recorded ?Last Taken ?Type duloxetine 60 mg capsule,delayed 60 mg PO BID 11/10/19 Unknown History release trazodone 150 mg tablet 75 mg PO QHS 11/10/19 Unknown History buprenorphine 5 mcg/hour weekly 1 patch transdermal .Q WEEK 03/13/23 Unknown History transdermal patch hydroxychloroquine 200 mg tablet 200 mg PO BID 03/13/23 Unknown History levothyroxine 100 mcg tablet 100 mcg PO DAILY 03/13/23 Unknown History acyclovir 400 mg tablet 400 mg PO BID 12/03/24 Unknown History cholecalciferol (vitamin D3) 125 125 mcg PO QDAY 12/03/24 Unknown History mcg (5,000 unit) capsule folic acid 1 mg tablet 1 mg PO BID 12/03/24 Unknown History leucovorin calcium 25 mg tablet 25 mg PO QWEEK 12/03/24 Unknown History methotrexate sodium 2.5 mg tablet 20 mg PO QWEEK 12/03/24 Unknown History omega-3 fatty acids 1,000 mg 1,000 mg PO QDAY 12/03/24 Unknown History capsule hydrocortisone acetate 25 mg 25 mg SD BID 10 days #20 ea 12/06/24 Unknown Rx rectal suppository gabapentin 600 mg tablet 600 mg PO TID 12/23/24 Unknown History hydrocodone-acetaminophen 5-325mg 1 tab PO BID PRN PRN pain 12/23/24 Unknown History 5mg-325mg prednisone 10 mg tablet 10 mg PO PRN 12/23/24 Unknown History Allergy/AdvReac Type Severity Reaction Status Date / Time No Known Allergies Allergy Verified 12/23/24 09:16 Family History Mother Colon cancer dx in her 80's Surgical History Hx of surgical procedure Hx of fusion of cervical spine History of appendectomy History of hip replacement Total knee replacement status H/O thyroidectomy Social History household members: spouse Smoking Status: Former smoker alcohol intake: never Review of Systems (Anesthesia) ROS Narrative System reviewed and no additional complaints, except as documented.
[2024-12-27 08:25] VITALS: BP 125/78; PULSE 71; RESP 18; TEMP 36.1; O2SAT 99; BMI 31.6
[2024-12-27] MEDS: Lactated Ringers 1,000 ML 15 ML IV (08:28)
--- NOTE | 2024-12-27 09:11 | HP.PCM_ITS ---
History and Physical
--- NOTE | 2024-12-27 09:11 | PCM.HP.BLA ---
History and Physical Date of Admission: 12/27/24 Date of Service: 12/03/24 MR#: [id number] Acct: [id number] Name: RADHA HOOKS Rep #: [id number] : 1945 Provider: Dr. Yessenia Holland MD Age/Sex: 79/F Location: [facility] Status: Signed Intake Vital Signs 03/13/2412:10 12/03/2512:40 Height 5 ft 6 in 5 ft 6 in Weight: 194 lb BMI 31.3 BP 130/89 H Blood Pressure Location Rt brachial Position Sitting Respiration 17 Pulse 85 Pulse Source Monitor Pulse Oximetry (%) 99 Oxygen Delivery Method room air Intake Visit Reasons: HEMORRHOIDS/COLONOSCOPY Chief Complaint: hemorrhoids/colonoscopy Is patient in pain?: No Allergies No Known Allergies Allergy (Verified 12/03/24 13:41) Medications ?Medication ?Instructions ?Recorded ?Confirmed ?Type duloxetine 60 mg capsule,delayed 60 mg PO BID 11/10/19 12/03/24 History release trazodone 150 mg tablet 75 mg PO QHS 11/10/19 12/03/24 History buprenorphine 5 mcg/hour weekly transdermal 03/13/23 12/03/24 History transdermal patch hydroxychloroquine 200 mg tablet 200 mg PO 03/13/23 12/03/24 History levothyroxine 100 mcg tablet 100 mcg PO 03/13/23 12/03/24 History acyclovir 400 mg tablet 400 mg PO BID 12/03/24 12/03/24 History cholecalciferol (vitamin D3) 125 125 mcg PO QDAY 12/03/24 12/03/24 History mcg (5,000 unit) capsule folic acid 1 mg tablet 1 mg PO BID 12/03/24 12/03/24 History leucovorin calcium 25 mg tablet 25 mg PO QWEEK 12/03/24 12/03/24 History methotrexate sodium 2.5 mg tablet 20 mg PO QWEEK 12/03/24 12/03/24 History omega-3 fatty acids 1,000 mg 1,000 mg PO QDAY 12/03/24 12/03/24 History capsule hydrocortisone acetate 25 mg 25 mg TX BID 10 days #20 ea 12/06/24 12/06/24 Rx rectal suppository Have you fallen in the past year?: No PFSH Medical History (Updated 12/06/24 @ 10:[address] Yessenia Holland MD) Hx of colonic polyps Hypothyroidism Back pain Surgical History History of appendectomy History of hip replacement Total knee replacement status H/O thyroidectomy Family History (Updated 12/03/24 @ 13:39 by Neda Rankin) Mother Colon cancer dx in her 80's Social History household members: spouse Smoking Status: Former smoker alcohol intake: never HPI HPI HPI: 79-year-old female presents due to history of polyps as well as family history of colon cancer mom was 84 diagnosed with metastatic colon cancer. Patient's last colonoscopy was 2021 do not currently have the report from Dr. Silverio's office. Patient's also does not with her hemorrhoids and has more soreness on the right side. Patient states she has bowel movements daily denies any blood. Patient has been using the hydrocortisone prescription suppository as she was able to get it through [employer] for $22 for 20 of them from [employer]. Patient's daughter is planning for a major surgery again January 03 so she will wait to schedule colonoscopy until surgery and recovery has happened. ROS General General: No weight change, appetite, fatigue, colon cancer, breast cancer or weakness HEENT HEENT: No difficulty swallowing, eye injury, eye surgery, swollen glands or hoarseness Endo Endocrine: Yes thyroid disease; No diabetes mellitus, thyroid cancer, Hair loss, heat intolerance or cold intolerance Skin Skin: No rash or changing moles Musc Musculoskeletal: Yes back problems, arthritis and rheumatoid arthritis; No gout or joint pain Cardio Cardiovascular: No murmur, pacemaker, heart disease, atrial fibrillation, high blood pressure, heart attack, heart stent, palpitations, shortness of breath with exertion or chest pain Psych Psychiatric: No depression, anxiety or hearing voices Resp Respiratory: No shortness of breath, No sleep apnea, No cough, No COPD, No asthma, No emphysema and No wheezing Gastro Gastrointestinal: No abdominal pain, No nausea or vomiting, No diarrhea, No constipation, No blood in stool, No acid reflux, Yes hemorrhoids, No ulcers, No gallbladder problem and No black,tarry stools Carlos Hematologic: No blood thinners, No blood disorders, No bleeding, No anemia and No blood clots Neuro Neurologic: No system reviewed and no additional complaints, except as documented, No as per HPI, No abnormal gait, No abnormal hearing, No abnormal movements, No abnormal speech, No behavioral changes, No burning sensations, No confusion, No convulsions, No disequilibrium, No dizziness, No localized weakness, No frequent falls, No headache(s), No lack of coordination, No loss of vision, No memory loss, No numbness, No other visual disturbances, No radicular pain, No restless legs, No sensory deficit, No syncope, No tingling, No tremor(s), No weakness and No other Exam Const General: cooperative, healthy appearing, comfortable and no acute distress HENOH Head: normocephalic and atraumatic Neck Neck: supple Resp Effort & Inspection: normal respiratory effort Cardio Rate: regular rate GI Inspection: non-distended Palpation: soft and nontender Skin General: no rashes or lesions noted Neuro General: CN's II-XI intact bilaterally Extrem General: normal to inspection Psych Mental Status: mental status grossly normal Attitude: cooperative Assessment and Plan Assessment and Plan (1) Hx of colonic polyps: Status: Acute Comment: (2) Family history of colon cancer in mother: Status: Acute Diagnosed at age 84 and metastatic Orders: Orders Colonoscopy 12/27/24 EUGENE BarriosC Medications: New hydrocortisone acetate 25 mg TX BID 20 ea [address] Yessenia Holland MD Plan Did send a refill for patient's hydrocortisone suppositories that she states have been able to get paid through the [employer] program. Patient will let us know if what I sent is not covered and if I need to change. I have discussed the above with the patient. I have offered the patient colonoscopy for evaluation. I have explained the risks/benefits of the procedure and described the procedure. I have discussed the risks with the patient, including but not limited to: infection, bleeding, perforation of the GI tract requiring emergency surgery, inability to complete the procedure, injury to any internal organs, complications of anesthesia, etc. - the patient understands and agrees to proceed. I have answered all the patient's questions to the patient's satisfaction and the patient has no further questions. The patient has been given instructions for the colon cleansing preparation. 1 day of clears MiraLAX Dulcolax prep Yessenia Holland M.D. Pager: [phone] [facility] [address] [place] [address], [facility], [address] [place] [address] Office: [phone] Coding Level of Care Code Off vis,new,level 3 Diagnoses Hx of colonic polyps Z86.0100 Family history of colon cancer in mother Z80.0 Clinical Quality Measures Falls Risk Screening/Assistive Devices Have you fallen in the past year?: No 12/06/24 1003 <Electronically signed by Yessenia Holland MD> Date Yessenia Holland MD
--- NOTE | 2024-12-27 09:15 | COLBX_PTH ---
PATIENT: RADHA HOOKS LOC: EN U#:[id number] AGE/SX: 79/F ROOM: RE12/27/[address]: Dr. Yessenia Holland MD : 1945 BED: DIS: 12/27/2024 SPEC #: [id number] RECD: 12/27/24 11:20 STATUS: ANDRA EMILI #: [id number] NICOLE: 12/27/24 09:[address]: Yessenia Holland DEPT: SURGICAL PATHOLOGY RECD BY: Erik Leos ENTERED: 12/27/24 13:21 SP TYPE: COLON BX OTHR DR: Dr. Adria Craig MD Tissues: A - Ascending colon B - Descending colon Procedures: Surgery Specimen Level IV HEADER OPERATION: Colonoscopy, polypectomy PRE-OP DIAGNOSIS: History of colonic polyps, family history of colon cancer in mother TISSUE SUBMITTED: A- Ascending polyp, B- Descending polyp x2 MICROSCOPIC DIAGNOSIS A. Ascending colon, polyp, biopsy:B. Descending colon, polyp, biopsy: MICROSCOPIC DESCRIPTION Slides are reviewed. GROSS DESCRIPTION A. Received in fixative is one container labeled with the patient's name and designated Ascending polyp. The specimen consists of multiple irregular fragments of bush tissue that in aggregate measure 0.8 x 0.6 x 0.1 cm, admixed with flocculent material. The specimen is totally submitted in one cassette. B. Received in fixative is one container labeled with the patient's name and designated Descending polyps x2. The specimen consists of multiple irregular fragments of bush tissue that in aggregate measure 1.5 x 0.6 x 0.2 cm, admixed with flocculent material. The specimen is totally submitted in one cassette. PA 12/27/2024 CPT:32951v8
--- NOTE | 2024-12-27 10:28 | OP.COLON_ITS ---
Patient Name: Gali Latif
[2024-12-27 10:30] VITALS: BP 113/73; BP 125/78; PULSE 75; RESP 16; TEMP 36.2; O2SAT 95
[2024-12-27 10:35] VITALS: BP 103/58; BP 125/78; PULSE 75; RESP 16; O2SAT 97
[2024-12-27 10:36] VITALS: BP 113/73; PULSE 71; RESP 16; TEMP 36.2; O2SAT 97
--- NOTE | 2024-12-27 10:36 | POSTOP.ANE_ITS ---
Anesthesia: Postop Eval I
--- NOTE | 2024-12-27 10:36 | PCM.POST.ANE ---
Anesthesia: Postop Eval I Current Vital Signs Temperature: 97.1 F Pulse Rate: 71 Blood Pressure: 113/73 Respiratory Rate: 16 Pulse Ox: 97 Oxygen Delivery Method: Room Air Assessment Airway patent: Yes Spontaneous unlabored respirations: Yes Mental status: Awake nausea: No Vomiting: No Anesthesia Complication: No Fluid Hydration Crystalloid volume administer (ml): 600 Total IV fluid infused: 600 Progress Note Anesthesia document: Postop Eval 1 completed: Yes
[2024-12-27 10:40] VITALS: BP 101/46; BP 125/78; PULSE 71; RESP 16; TEMP 36.2; O2SAT 96
[2024-12-27 10:47] VITALS: BP 125/78
--- NOTE | 2024-12-27 10:53 | POSTOPAN2_ITS ---
Anesthesia Postop Eval I Sum
--- NOTE | 2024-12-27 10:53 | PCM.POSTANE2 ---
Anesthesia Postop Eval I Sum Postop Eval Completion status Anesthesia document: Postop Eval 1 completed: Yes Anesthesia Postop Eval I Summary Anesthesia Postop Eval I Summary: Anesthesia Postop Eval I: Assessment Summary Airway patent Yes 12/27/24 10:36 [email or web address] Spontaneous unlabored Yes 12/27/24 10:36 [email or web address] respirations Mental status Awake 12/27/24 10:36 [email or web address] nausea No 12/27/24 10:36 [email or web address] Vomiting No 12/27/24 10:36 [email or web address] Anesthesia Postop Eval I: Fluid Summary Crystalloid volume administer 600 12/27/24 10:36 [email or web address] (ml) Colloids volume administered ( ml) Blood Product volume administered (ml) Total IV fluid infused 600 12/27/24 10:36 [email or web address] Anesthesia Postop Eval I: Summary Notes Anesthesia Complication No 12/27/24 10:36 [email or web address] Anesthesia Complication Comment: Post-operative progress note Anesthesia: Postop Eval II Evaluation Mental status: Awake Pain Level: 0 nausea: No Vomiting: No
== END 2024-12-27 11:14 | disposition home or self-care (01) ==
LOC: EN 08:02 → AC 08:07
PROVIDERS: PCP Family Medicine Geriatric Medicine; Referring Provider Family Medicine Geriatric Medicine; Visit Provider Surgery
PROC: 0DJD8ZZ Inspection of Lower Intestinal Tract, Via Natural or Artificial Opening Endoscopic (ICD-10-PCS; CPT 45378; principal; 2024-12-27 09:10)
DX: Z12.11 Encounter for screening for malignant neoplasm of colon (principal); K57.30 Diverticulosis of large intestine without perforation or abscess without bleeding; Z87.891 Personal history of nicotine dependence; Z86.0100 Personal history of colon polyps, unspecified; E03.9 Hypothyroidism, unspecified; Z79.890 Hormone replacement therapy; Z90.49 Acquired absence of other specified parts of digestive tract; Z96.649 Presence of unspecified artificial hip joint; Z96.659 Presence of unspecified artificial knee joint; Z80.0 Family history of malignant neoplasm of digestive organs; K63.5 Polyp of colon
CPT/HCPCS: 45385; 88305; J2405

== ENCOUNTER → 2025-01-24 | Outpatient (CLI) | payer MEDICARE, OTHER, SELFPAY ==
[2025-01-24 12:22] LABS: Hematocrit 40.0 % (37-47); Hemoglobin 12.9 g/dL (12.0-15.0); Immature Granulocytes Count 0.020 X10^3/uL (0.0-0.0); Mean Corp Hgb Conc 32.3 g/dL (32-36); Mean Corpuscular Volume 90.3 fL (81-99); Mean Platelet Vol. 9.5 fl (6.2-12.0); NRBC Flagged by Analyzer 0 % (0-5); Platelet Count 302 K/mm3 (150-450); RBC Distribution Width CV 14.7 % (11.6-14.6); RBC Distribution Width SD 47.7 fl (35.1-43.9); Red Blood Count 4.43 M/mm3 (4.2-5.4); White Blood Count 11.4 K/mm3 (4.4-11.0)
[2025-01-24 15:24] LABS: AST(SGOT) 18 U/L (<=31); Alanine Aminotransfer ALT/SGPT 19 U/L (<=34); Albumin, Serum 4.0 g/dL (3.4-4.8); Alkaline Phosphatase 64 U/L (35-104); Anion Gap 10 (5-15); BUN 15 mg/dL (4-19); BUN/Creat Ratio 16.2 RATIO (10-20); Calcium,Total 9.3 mg/dL (7.6-11.0); Carbon Dioxide 25.2 mmol/L (21.0-32.0); Chloride 105 mmol/L (98-108); Globulin 3.0 g/dL (2.2-4.2); Glucose 82 mg/dL (70-99); Potassium 4.2 mmol/L (3.3-5.1)
== END | disposition home or self-care (01) ==
LOC: MTLAB 10:59
PROVIDERS: PCP Family Medicine Geriatric Medicine; Referring Provider Internal Medicine Rheumatology; Visit Provider Internal Medicine Rheumatology
DX: L40.59 Other psoriatic arthropathy (principal); Z79.899 Other long term (current) drug therapy
CPT/HCPCS: 36415; 80053; 85025